=== PATIENT | male | born 1970 | race Caucasian/White ===

== ENCOUNTER 2016-08-26 10:44 | Emergency (ER) | payer MEDICARE, MEDICAID ==
[~2016-08-26] VITALS: Ht 157.5 cm; Wt 117.9 kg
[~2016-08-26 10:44] MED LIST: ALBUTEROL SULFAT4 M1 ORAL; AMBIEN10 MG ORAL; BENAZEPRIL HCL10 MG ORAL; CARBAMAZEPINE200 MG ORAL; DESYREL50 MG ORAL; FERROUS SULFAT325 MG ORAL; HALOPERIDOL2 MG PO; IRON325 M1 PO; KEFLEX500 MG ORAL; MELATONIN3 M2 PO; SERTRALINE HCL25 MG ORAL; SIMVASTATIN20 MG ORAL; TOPAMAX100 MG ORAL; TOPIRAMATE100 MG ORAL; Trazadone ORAL; ZOLOFT100 MG ORAL
[2016-08-26 10:56] VITALS: BP 94/55
[2016-08-26 11:43] LABS: APPEARANCE,URINE CLEAR; KETONES,URINE NEGATIVE (NEGATIVE); LEUKOCYTE ESTERASE ,URINE NEGATIVE (NEGATIVE); NITRITE,URINE NEGATIVE (NEGATIVE); PH,URINE 7 (4.5-8.0); PROTEIN,URINE NEGATIVE (NEGATIVE); UROBILINOGEN,URINE NORMAL MG/DL (0.0-1.0)
[2016-08-26 12:21] LABS: BASOPHILS % (AUTO) 0.6 % (0.0-2.0); EOSINOPHILS % (AUTO) 2.1 % (0.0-3.0); LYMPHOCYTES % (AUTO) 28.7 % (20.0-45.0); MEAN CORPUSCULAR HEMOGLOBIN 29.6 PG (27.0-31.0); MEAN CORPUSCULAR HGB CONC 32.5 G/DL (32.0-36.0); MEAN CORPUSCULAR VOLUME 91 FL (80-99); MEAN PLATELET VOLUME 5.8 FL (6.5-10.1); MONOCYTES % (AUTO) 5.9 % (1.0-10.0); NEUTROPHILS % (AUTO) 62.7 % (45.0-75.0); PLATELET COUNT 138 K/UL (150-450); RED BLOOD COUNT 4.29 M/UL (4.70-6.10); RED CELL DISTRIBUTION WIDTH 12.5 % (11.6-14.8); WHITE BLOOD COUNT 5.5 K/UL (4.8-10.8)
[2016-08-26 12:39] LABS: ALANINE AMINOTRANSFERASE 9 U/L (3-41); ALBUMIN/GLOBULIN RATIO 1.7 (1.0-2.7); ANION GAP 15 (5-15); ASPARTATE AMINO TRANSFERASE 12 U/L (5-40); CALCIUM 9.2 mg/dL (8.6-10.2); CARBON DIOXIDE 21 mEQ/L (20-30); CHLORIDE 101 mEQ/L (98-107); CREATININE 0.8 mg/dL (0.7-1.2); GLOMERULAR FILTRATION RATE > 60 mL/min (>60); HEMOLYSIS 7; POTASSIUM 3.7 mEQ/L (3.4-4.9); SODIUM 137 mEQ/L (135-145); TOTAL PROTEIN 6.9 g/dL (6.6-8.7)
[2016-08-26 12:46] VITALS: BP 98/56
[2016-08-26] MEDS ORDERED: CIPROFLOXACIN500 M2 ORAL (12:48)
[2016-08-26 13:00] VITALS: BP 98/56
--- NOTE | 2016-08-27 13:46 | Emergency Room Report ---
History of Present Illness General Chief Complaint: Diarrhea Source: Caregiver Present Illness HPI 46-year-old male presents ED for evaluation. 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 Patient has history of autism. Per career center advisor patient has had diarrhea on and off for the last one month. Patient is unable to provide any additional history at this time. No signs of distress. No foreign abdominal pain. No nausea or vomiting. No fevers or chills. No reported antibiotic. No recent travel. No aggravating or relieving factors. No other associated symptoms Allergies: Coded Allergies: No Known Allergies (Unverified , 12/17/12) Patient History Past Medical History: other - autism Past Surgical History: none Pertinent Family History: none Social History: Denies: alcohol use, drug use, smoking Immunizations: UTD Reviewed Nursing Documentation: PMH: Agreed, PSxH: Agreed Nursing Documentation-PMH Hx Cardiac Problems: Yes Hx Neurological Problems: Yes - Moderate mental retardation, Autistic disorder, Hx Seizures: Yes Review of Systems All Other Systems: limited Physical Exam Vital Signs Date Time Temp Pulse Resp B/P Pulse Ox O2 Delivery O2 Flow Rate FiO2 08/26/16 10:52 97.3 62 20 100 Room Air 08/26/16 10:56 94/55 Sp02 EP Interpretation: reviewed, normal General Appearance: no apparent distress, alert, GCS 15, non-toxic Head: normocephalic Eyes: bilateral eye PERRL, bilateral eye normal inspection ENT: normal ENT inspection Neck: normal inspection Respiratory: chest non-tender, lungs clear, normal breath sounds, speaking full sentences Cardiovascular #1: regular rate, rhythm, no edema Gastrointestinal: normal bowel sounds, non tender, soft, non-distended, no guarding, no rebound Rectal: deferred Genitourinary: no CVA tenderness Musculoskeletal: normal inspection Neurologic: alert, other - autism Psychiatric: other - autism Skin: normal inspection Lymphatic: normal inspection Medical Decision Making Diagnostic Impression: Primary Impression: Colitis Additional Impression: Developmental delay, severe ER Course Hospital Course 46-year-old M presents to ED with diarrhea x 1 month. h/o autism differential diagnosis: gastritis, SBO, cholecystits, gastroenteritis Clinical course Patient placed on stretcher. On conveyor monitor. After initial history and physical I ordered labs. Health Plan Specialist states that patient will not tolerate IV access. fluid jet cutter operator agreed to drawing labs Labs - no leukocytosis, electrolytes ok, LFTs normal, UA unremarkable Patient appears well, nontoxic, stable vitals but no signs of clinical dehydration. Given one month history of diarrhea we will treat with antibiotics I feel this is a highly complex case requiring extensive working including EKG/ Rhythm strip, Xray/CT/US, Blood/urine lab work, repeat exams while in ED, and administration of strong opiates/narcotics for pain control, admission to hospital or close patient follow up. Diagnosis - colitis Stable and discharged to home with prescriptions for Cipro. Followup with PMD. Return to ED if symptoms recur or worsen Labs Test 08/26/16 11:15 08/26/16 12:10 Urine Color Pale yellow Urine Appearance Clear Urine pH 7 (4.5-8.0) Urine Specific [place] 1.005 (1.005-1.035) Urine Protein Negative (NEGATIVE) Urine Glucose (UA) Negative (NEGATIVE) Urine Ketones Negative (NEGATIVE) Urine Occult Blood Negative (NEGATIVE) Urine Nitrite Negative (NEGATIVE) Urine Bilirubin Negative (NEGATIVE) Urine Urobilinogen Normal MG/DL (0.0-1.0) Urine Leukocyte Esterase Negative (NEGATIVE) White Blood Count 5.5 K/UL (4.8-10.8) Red Blood Count 4.29 M/UL (4.70-6.10) Hemoglobin 12.7 G/DL (14.2-18.0) Hematocrit 39.1 % (42.0-52.0) Mean Corpuscular Volume 91 FL (80-99) Mean Corpuscular Hemoglobin 29.6 PG (27.0-31.0) Mean Corpuscular Hemoglobin Concent 32.5 G/DL (32.0-36.0) Red Cell Distribution Width 12.5 % (11.6-14.8) Platelet Count 138 K/UL (150-450) Mean Platelet Volume 5.8 FL (6.5-10.1) Neutrophils (%) (Auto) 62.7 % (45.0-75.0) Lymphocytes (%) (Auto) 28.7 % (20.0-45.0) Monocytes (%) (Auto) 5.9 % (1.0-10.0) Eosinophils (%) (Auto) 2.1 % (0.0-3.0) Basophils (%) (Auto) 0.6 % (0.0-2.0) Sodium Level 137 mEQ/L (135-145) Potassium Level 3.7 mEQ/L (3.4-4.9) Chloride Level 101 mEQ/L (98-107) Carbon Dioxide Level 21 mEQ/L (20-30) Anion Gap 15 (5-15) Blood Urea Nitrogen 17 mg/dL (7-23) Creatinine 0.8 mg/dL (0.7-1.2) Estimat Glomerular Filtration Rate > 60 mL/min (>60) Glucose Level 90 mg/dL (74-106) Calcium Level 9.2 mg/dL (8.6-10.2) Total Bilirubin < 0.2 mg/dL (0.0-1.2) Aspartate Amino Transf (AST/SGOT) 12 U/L (5-40) Alanine Aminotransferase (ALT/SGPT) 9 U/L (3-41) Alkaline Phosphatase 162 U/L (40-129) Total Protein 6.9 g/dL (6.6-8.7) Albumin 4.4 g/dL (3.5-5.2) Globulin 2.5 g/dL Albumin/Globulin Ratio 1.7 (1.0-2.7) Last Vital Signs Date Time Temp Pulse Resp B/P Pulse Ox O2 Delivery O2 Flow Rate FiO2 08/26/16 13:00 97.3 79 18 98/56 100 Room Air Status: improved Disposition: HOME, SELF-CARE Condition: Stable Scripts Ciprofloxacin Hcl* (CIPROFLOXACIN HCL*) 500 Mg Tablet 500 MG ORAL Q12H, #14 TAB 0 Refills Prov: JOSE RAMON MERCEDES M.D. 08/26/16 Patient Instructions: Colitis JOSE RAMON MERCEDES M.D. Aug 27, 2016 13:46
== END 2016-08-26 13:02 | disposition home or self-care (01) ==
LOC: EMR 11:15
DX: K52.9 Noninfective gastroenteritis and colitis, unspecified (principal)
CPT/HCPCS: 36415; 80053; 81003; 85025; 99283

== ENCOUNTER 2016-11-15 15:06 | Inpatient (IN) | payer MEDICARE, MEDICAID ==
[~2016-11-15] VITALS: Ht 165.1 cm; Wt 105.2 kg
[~2016-11-15 15:06] MED LIST changes: +CIPROFLOXACIN500 M2 ORAL
[2016-11-15 16:21] LABS: BASOPHILS % (AUTO) 1.1 % (0.0-2.0); EOSINOPHILS % (AUTO) 2.2 % (0.0-3.0); LYMPHOCYTES % (AUTO) 24.9 % (20.0-45.0); MEAN CORPUSCULAR HEMOGLOBIN 31.6 PG (27.0-31.0); MEAN CORPUSCULAR HGB CONC 34.9 G/DL (32.0-36.0); MEAN CORPUSCULAR VOLUME 91 FL (80-99); MONOCYTES % (AUTO) 6.1 % (1.0-10.0); NEUTROPHILS % (AUTO) 65.6 % (45.0-75.0); PLATELET COUNT 144 K/UL (150-450); RED BLOOD COUNT 3.94 M/UL (4.70-6.10); RED CELL DISTRIBUTION WIDTH 13.1 % (11.6-14.8)
[2016-11-15 16:34] LABS: ALANINE AMINOTRANSFERASE 9 U/L (3-41); ALBUMIN/GLOBULIN RATIO 1.9 (1.0-2.7); ANION GAP 11 (5-15); ASPARTATE AMINO TRANSFERASE 11 U/L (5-40); CALCIUM 8.6 mg/dL (8.6-10.2); CARBON DIOXIDE 21 mEQ/L (20-30); CHLORIDE 106 mEQ/L (98-107); CREATININE 0.9 mg/dL (0.7-1.2); GLOMERULAR FILTRATION RATE > 60 mL/min (>60); HEMOLYSIS 4; POTASSIUM 3.7 mEQ/L (3.4-4.9); SODIUM 138 mEQ/L (135-145); TOTAL PROTEIN 6.7 g/dL (6.6-8.7)
--- NOTE | 2016-11-15 16:47 | Emergency Room Report ---
History of Present Illness General Chief Complaint: Gastrointestinal Bleed Source: Medical Record, Caregiver Present Illness HPI This patient has a history of mental retardation and autism. History is obtained from the caregiver who brought in the patient. Today the patient had a soft bowel movement that had bright red blood x3 episodes. There was no constipation. There is no hematuria. He has no history of bleeding. He has no history of travel. There was no nausea or vomiting. There are no other complaints. Allergies: Coded Allergies: No Known Allergies (Unverified , 12/17/12) Patient History Past Medical History: see triage record, seizures, other - Mental retardation, Autism Past Surgical History: other Social History: Denies: alcohol use, drug use, smoking Reviewed Nursing Documentation: PMH: Agreed, PSxH: Agreed Nursing Documentation-PMH Past Medical History: No History, Except For Hx Cardiac Problems: Yes Hx Neurological Problems: Yes - Moderate mental retardation, Autistic disorder, Hx Seizures: Yes Review of Systems All Other Systems: negative except mentioned in HPI Physical Exam Vital Signs Date Time Temp Pulse Resp B/P Pulse Ox O2 Delivery O2 Flow Rate FiO2 11/15/16 15:19 97.7 85 14 112/75 99 Room Air Sp02 EP Interpretation: reviewed, normal General Appearance: no apparent distress, alert, GCS 15, non-toxic Head: normocephalic, atraumatic Eyes: bilateral eye PERRL, bilateral eye normal inspection ENT: hearing grossly normal, normal pharynx, no angioedema, normal voice Neck: full range of motion, supple/symm/no masses Respiratory: chest non-tender, lungs clear, normal breath sounds, speaking full sentences Cardiovascular #1: regular rate, rhythm, no edema Gastrointestinal: normal bowel sounds, non tender, soft, non-distended, no guarding, no rebound Rectal: normal exam, normal rectal tone, other - Brown stool. No obvious bleeding or hemorrhoids. Musculoskeletal: back normal, normal range of motion, non-tender Neurologic: alert, responsive, motor strength/tone normal, other - At baseline. Speech non-sensical. Follows basic commands. Psychiatric: mood/affect normal Skin: normal color, no rash, warm/dry, well hydrated Medical Decision Making Diagnostic Impression: Primary Impression: Gastrointestinal hemorrhage Additional Impression: Developmental delay, severe Labs Test 11/15/16 15:00 White Blood Count 6.0 K/UL (4.8-10.8) Red Blood Count 3.94 M/UL (4.70-6.10) Hemoglobin 12.5 G/DL (14.2-18.0) Hematocrit 35.7 % (42.0-52.0) Mean Corpuscular Volume 91 FL (80-99) Mean Corpuscular Hemoglobin 31.6 PG (27.0-31.0) Mean Corpuscular Hemoglobin Concent 34.9 G/DL (32.0-36.0) Red Cell Distribution Width 13.1 % (11.6-14.8) Platelet Count 144 K/UL (150-450) Mean Platelet Volume 5.0 FL (6.5-10.1) Neutrophils (%) (Auto) 65.6 % (45.0-75.0) Lymphocytes (%) (Auto) 24.9 % (20.0-45.0) Monocytes (%) (Auto) 6.1 % (1.0-10.0) Eosinophils (%) (Auto) 2.2 % (0.0-3.0) Basophils (%) (Auto) 1.1 % (0.0-2.0) Prothrombin Time 10.0 SEC (9.30-11.50) Prothromb Time International Ratio 1.0 (0.9-1.1) Activated Partial Thromboplast Time 27 SEC (23-33) Sodium Level 138 mEQ/L (135-145) Potassium Level 3.7 mEQ/L (3.4-4.9) Chloride Level 106 mEQ/L (98-107) Carbon Dioxide Level 21 mEQ/L (20-30) Anion Gap 11 (5-15) Blood Urea Nitrogen 14 mg/dL (7-23) Creatinine 0.9 mg/dL (0.7-1.2) Estimat Glomerular Filtration Rate > 60 mL/min (>60) Glucose Level 93 mg/dL (74-106) Calcium Level 8.6 mg/dL (8.6-10.2) Total Bilirubin < 0.2 mg/dL (0.0-1.2) Aspartate Amino Transf (AST/SGOT) 11 U/L (5-40) Alanine Aminotransferase (ALT/SGPT) 9 U/L (3-41) Alkaline Phosphatase 156 U/L (40-129) Total Protein 6.7 g/dL (6.6-8.7) Albumin 4.4 g/dL (3.5-5.2) Globulin 2.3 g/dL Albumin/Globulin Ratio 1.9 (1.0-2.7) EKG Diagnostic Results Rate: normal Rhythm: NSR Other Impression NSST findings. prolonged Qt. IRBBB. No comparison available. Rhythm Strip Diag. Results EP Interpretation: yes Rate: 70's Rhythm: NSR, no PVC's, no ectopy Last Vital Signs Date Time Temp Pulse Resp B/P Pulse Ox O2 Delivery O2 Flow Rate FiO2 11/15/16 15:19 97.7 85 14 112/75 99 Room Air Disposition: ADMITTED INPATIENT Condition: Stable Referrals: NON PHYSICIAN (PCP) DEVIN WHIPPLE D.O. Nov 15, 2016 16:47
[2016-11-15 17:03] LABS: APPEARANCE,URINE CLEAR; KETONES,URINE NEGATIVE (NEGATIVE); LEUKOCYTE ESTERASE ,URINE NEGATIVE (NEGATIVE); NITRITE,URINE NEGATIVE (NEGATIVE); PH,URINE 6 (4.5-8.0); PROTEIN,URINE NEGATIVE (NEGATIVE); UROBILINOGEN,URINE NORMAL MG/DL (0.0-1.0)
[2016-11-15] MEDS ORDERED: HALOPERIDOL0.5 MG ORAL (17:26)
[2016-11-15] MEDS ORDERED: KLONOPIN1 MG ORAL (17:26)
[2016-11-15] MEDS ORDERED: OMEPRAZOLE40 M1 ORAL (17:26)
[2016-11-15] MEDS ORDERED: TRAZODONE HCL150 MG ORAL (17:26)
[2016-11-15 18:00] VITALS: BP 119/74
[2016-11-15] MEDS ORDERED: Mylanta II UD 30ml ORAL PRN (18:15)
[2016-11-15] MEDS ORDERED: Morphine Sulfate 2mg/ml Inj IVP PRN (18:15)
[2016-11-15] MEDS ORDERED: Nitroglycerin Subl 0.4mg tab (Bottle Of 25) SL PRN (18:15)
[2016-11-15] MEDS ORDERED: Phytonadione 10 MG in D5W 55 ML IVPB ONE (19:00)
[2016-11-15 20:00] VITALS: BP 100/65
[2016-11-15] MEDS ORDERED: Miralax 17gm pkt ORAL PRN (21:00)
[2016-11-15] MEDS ORDERED: TraZODone 50mg tab ORAL SCH (21:00)
[2016-11-15 23:20] VITALS: BP 97/64
[2016-11-15] MEDS: D5NS 1,000 ML IV SCH (23:35)
[2016-11-16] MEDS: TraZODone 50mg tab ORAL SCH ×2 (01:16→21:21)
[2016-11-16] MEDS: carBAMazepine 200mg tab ORAL SCH ×5 (01:17→21:23)
[2016-11-16] MEDS ORDERED: MELATONIN3 MG ORAL (02:28)
[2016-11-16] MEDS ORDERED: BENAZEPRIL HCL5 MG ORAL (02:28)
[2016-11-16] MEDS ORDERED: KLONOPIN2 MG PO (02:28)
[2016-11-16] MEDS ORDERED: TOPIRAMATE200 MG PO (02:28)
[2016-11-16 04:00] VITALS: BP 97/62
[2016-11-16] MEDS: D5NS 1,000 ML IV SCH ×2 (06:00→11:56)
[2016-11-16 06:28] LABS: BASOPHILS % (AUTO) 0.7 % (0.0-2.0); EOSINOPHILS % (AUTO) 2.8 % (0.0-3.0); LYMPHOCYTES % (AUTO) 39.8 % (20.0-45.0); MEAN CORPUSCULAR HEMOGLOBIN 30.1 PG (27.0-31.0); MEAN CORPUSCULAR HGB CONC 32.4 G/DL (32.0-36.0); MEAN CORPUSCULAR VOLUME 93 FL (80-99); MEAN PLATELET VOLUME 5.8 FL (6.5-10.1); MONOCYTES % (AUTO) 8.2 % (1.0-10.0); NEUTROPHILS % (AUTO) 48.5 % (45.0-75.0); PLATELET COUNT 152 K/UL (150-450); RED BLOOD COUNT 4.06 M/UL (4.70-6.10); RED CELL DISTRIBUTION WIDTH 12.8 % (11.6-14.8); WHITE BLOOD COUNT 4.2 K/UL (4.8-10.8)
[2016-11-16 06:39] LABS: PROTHROMBIN TIME 10.1 SEC (9.30-11.50)
[2016-11-16] MEDS ORDERED: Haloperidol 5mg/ml Inj IM PRN (07:30)
[2016-11-16 07:33] LABS: ALANINE AMINOTRANSFERASE 7 U/L (3-41); ALBUMIN/GLOBULIN RATIO 1.5 (1.0-2.7); AMYLASE 27 U/L (10-110); ANION GAP 15 (5-15); ASPARTATE AMINO TRANSFERASE 11 U/L (5-40); CALCIUM 8.7 mg/dL (8.6-10.2); CARBON DIOXIDE 19 mEQ/L (20-30); CHLORIDE 107 mEQ/L (98-107); CREATININE 0.7 mg/dL (0.7-1.2); GLOMERULAR FILTRATION RATE > 60 mL/min (>60); HEMOLYSIS 4; LIPASE 13 U/L (< 60); POTASSIUM 3.9 mEQ/L (3.4-4.9); SODIUM 141 mEQ/L (135-145); TOTAL PROTEIN 6.3 g/dL (6.6-8.7)
[2016-11-16 08:00] VITALS: BP 102/70
[2016-11-16] MEDS ORDERED: Sertraline 50mg tab ORAL SCH (09:00)
[2016-11-16] MEDS ORDERED: Benazepril 10mg tab ORAL SCH ×2 (09:00)
[2016-11-16] MEDS ORDERED: Topiramate 100mg tab ORAL SCH ×2 (09:00→20:00)
[2016-11-16] MEDS ORDERED: Sertraline 100mg tab ORAL SCH (09:00)
--- NOTE | 2016-11-16 09:29 | History and Physical ---
History of Present Illness General Date patient seen: Nov 16, 2016 Reason for Hospitalization: Gastrointestinal Bleed Present Illness HPI 46 year old male with history of mental retardation and autism. History is obtained from the caregiver who brought in the patient. the patient had a soft bowel movement that had bright red blood x3 episodes. There was no constipation. There is no hematuria. He has no history of bleeding. He has no history of travel. There was no nausea or vomiting. There are no other complaints. He is admitted for lower GI bleeding Allergies: Coded Allergies: No Known Allergies (Unverified , 12/17/12) Medication History Scheduled Albuterol Sulfate* (Albuterol Repetabs*), 4 MG ORAL TWICE A DAY, (Reported) Benazepril Hcl (Benazepril Hcl), 5 MG ORAL DAILY, (Reported) Carbamazepine* (Carbamazepine*), 300 MG ORAL FOUR TIMES A DAY Clonazepam (Klonopin), 2 MG PO QHS, (Reported) Ferrous Sulfate (Iron), 325 MG PO DAILY, (Reported) Haloperidol* (Haldol*), 0.5 MG ORAL TID, (Reported) Melatonin (Melatonin), 3 MG ORAL QHS, (Reported) Omeprazole (Omeprazole), 40 MG ORAL DAILY, (Reported) Sertraline Hcl* (Zoloft*), 100 MG ORAL DAILY, (Reported) Simvastatin (Zocor), 20 MG ORAL BEDTIME, (Reported) Topiramate (Topiramate), 200 MG PO TID, (Reported) Trazodone* (Trazodone*), 150 MG ORAL BEDTIME, (Reported) Zolpidem Tartrate* (Ambien*), 10 MG ORAL BEDTIME, (Reported) Discontinued Medications Benazepril Hcl* (Benazepril Hcl*), 5 MG ORAL DAILY, (Reported) Discontinued Reason: Medication dose changed Cephalexin* (Keflex*), 500 MG ORAL EVERY 6 HOURS Discontinued Reason: Pt stopped taking med Ciprofloxacin Hcl* (Ciprofloxacin Hcl*), 500 MG ORAL Q12H Discontinued Reason: Pt stopped taking med Clonazepam* (Klonopin*), 2 MG ORAL QHS, (Reported) Discontinued Reason: Medication dose changed Ferrous Sulfate* (Ferrous Sulfate*), 325 MG ORAL DAILY, (Reported) Discontinued Reason: Medication dose changed Haloperidol (Haloperidol), 0.5 MG PO TID, (Reported) Discontinued Reason: Medication dose changed Melatonin (Melatonin), 3 TAB PO BEDTIME, (Reported) Discontinued Reason: Medication dose changed Sertraline Hcl* (Sertraline Hcl*), 100 MG ORAL DAILY, (Reported) Discontinued Reason: Medication dose changed Topiramate (Topamax), 300 MG ORAL TWICE A DAY Discontinued Reason: Medication dose changed Topiramate* (Topamax*), 400 MG ORAL DAILY, (Reported) Discontinued Reason: Medication dose changed Trazodone Hcl (Desyrel), 50 MG ORAL BEDTIME Discontinued Reason: Medication dose changed Patient History Healthcare decision maker Resuscitation status Full Code Advanced Directive on File Review of Systems All Other Systems: negative except mentioned in HPI Physical Exam General Appearance: WD/WN Lines, tubes and drains: peripheral HEENT: normocephalic, anicteric Neck: non-tender, normal alignment Respiratory/Chest: chest wall non-tender, lungs clear, normal breath sounds Breasts: no masses Cardiovascular/Chest: normal peripheral pulses, normal rate Abdomen: normal bowel sounds, non tender Genitourinary/Rectal: normal genital exam Extremities: normal range of motion, non-tender Last 24 Hour Vital Signs Date Time Temp Pulse Resp B/P Pulse Ox O2 Delivery O2 Flow Rate FiO2 11/16/16 08:54 102/70 11/16/16 04:00 62 11/16/16 04:00 97.7 61 18 97/62 98 Room Air 11/16/16 00:00 64 11/15/16 23:20 97.3 60 18 97/64 98 Room Air 11/15/16 22:37 62 18 113/67 96 Room Air 11/15/16 20:00 64 18 100/65 98 11/15/16 18:00 68 16 119/74 98 Room Air 11/15/16 15:19 97.7 85 14 112/75 99 Room Air Intake and Output 11/15/16 11/16/16 19:00 07:00 Intake Total 0 ml 700 ml Balance 0 ml 700 ml Intake Oral 0 ml IV Total 700 ml # Voids 2 Laboratory Tests Test 11/15/16 15:00 11/15/16 16:35 11/16/16 04:35 11/16/16 04:55 White Blood Count 6.0 K/UL (4.8-10.8) 4.2 K/UL (4.8-10.8) L Red Blood Count 3.94 M/UL (4.70-6.10) L 4.06 M/UL (4.70-6.10) L Hemoglobin 12.5 G/DL (14.2-18.0) L 12.2 G/DL (14.2-18.0) L Hematocrit 35.7 % (42.0-52.0) L 37.6 % (42.0-52.0) L Mean Corpuscular Volume 91 FL (80-99) 93 FL (80-99) Mean Corpuscular Hemoglobin 31.6 PG (27.0-31.0) H 30.1 PG (27.0-31.0) Mean Corpuscular Hemoglobin Concent 34.9 G/DL (32.0-36.0) 32.4 G/DL (32.0-36.0) Red Cell Distribution Width 13.1 % (11.6-14.8) 12.8 % (11.6-14.8) Platelet Count 144 K/UL (150-450) L 152 K/UL (150-450) Mean Platelet Volume 5.0 FL (6.5-10.1) L 5.8 FL (6.5-10.1) L Neutrophils (%) (Auto) 65.6 % (45.0-75.0) 48.5 % (45.0-75.0) Lymphocytes (%) (Auto) 24.9 % (20.0-45.0) 39.8 % (20.0-45.0) Monocytes (%) (Auto) 6.1 % (1.0-10.0) 8.2 % (1.0-10.0) Eosinophils (%) (Auto) 2.2 % (0.0-3.0) 2.8 % (0.0-3.0) Basophils (%) (Auto) 1.1 % (0.0-2.0) 0.7 % (0.0-2.0) Prothrombin Time 10.0 SEC (9.30-11.50) 10.1 SEC (9.30-11.50) Prothromb Time International Ratio 1.0 (0.9-1.1) 1.0 (0.9-1.1) Activated Partial Thromboplast Time 27 SEC (23-33) 27 SEC (23-33) Sodium Level 138 mEQ/L (135-145) 141 mEQ/L (135-145) Potassium Level 3.7 mEQ/L (3.4-4.9) 3.9 mEQ/L (3.4-4.9) Chloride Level 106 mEQ/L (98-107) 107 mEQ/L (98-107) Carbon Dioxide Level 21 mEQ/L (20-30) 19 mEQ/L (20-30) L Anion Gap 11 (5-15) 15 (5-15) Blood Urea Nitrogen 14 mg/dL (7-23) 13 mg/dL (7-23) Creatinine 0.9 mg/dL (0.7-1.2) 0.7 mg/dL (0.7-1.2) Estimat Glomerular Filtration Rate > 60 mL/min (>60) > 60 mL/min (>60) Glucose Level 93 mg/dL (74-106) 85 mg/dL (74-106) Calcium Level 8.6 mg/dL (8.6-10.2) 8.7 mg/dL (8.6-10.2) Total Bilirubin < 0.2 mg/dL (0.0-1.2) 0.2 mg/dL (0.0-1.2) Aspartate Amino Transf (AST/SGOT) 11 U/L (5-40) 11 U/L (5-40) Alanine Aminotransferase (ALT/SGPT) 9 U/L (3-41) 7 U/L (3-41) Alkaline Phosphatase 156 U/L (40-129) H 150 U/L (40-129) H Total Protein 6.7 g/dL (6.6-8.7) 6.3 g/dL (6.6-8.7) L Albumin 4.4 g/dL (3.5-5.2) 3.8 g/dL (3.5-5.2) Globulin 2.3 g/dL 2.5 g/dL Albumin/Globulin Ratio 1.9 (1.0-2.7) 1.5 (1.0-2.7) Urine Color Pale yellow Urine Appearance Clear Urine pH 6 (4.5-8.0) Urine Specific [place] 1.020 (1.005-1.035) Urine Protein Negative (NEGATIVE) Urine Glucose (UA) Negative (NEGATIVE) Urine Ketones Negative (NEGATIVE) Urine Occult Blood Negative (NEGATIVE) Urine Nitrite Negative (NEGATIVE) Urine Bilirubin Negative (NEGATIVE) Urine Urobilinogen Normal MG/DL (0.0-1.0) Urine Leukocyte Esterase Negative (NEGATIVE) Amylase Level 27 U/L (10-110) Lipase 13 U/L (< 60) Height (Feet): 5 Height (Inches): 4.00 Weight (Pounds): 232 Medications Current Medications Medications (Trade) Dose Ordered Sig/Oracio Route PRN Reason Start Time Stop Time Status Last Admin Dose Admin Acetaminophen (Tylenol) 650 mg Q4H PRN ORAL T>100.5 11/15/16 18:15 12/15/16 18:14 Al Hydroxide/Mg Hydroxide (Mylanta II) 30 ml Q6H PRN ORAL dyspepsia 11/15/16 18:15 12/15/16 18:14 Benazepril HCl (Lotensin) 5 mg DAILY ORAL 11/16/16 09:00 12/16/16 08:59 Carbamazepine (TEGretol) 300 mg FOUR TIMES A DAY ORAL 11/15/16 21:00 12/15/16 20:59 11/16/16 08:51 Clonazepam (KlonoPIN) 2 mg QHS ORAL 11/15/16 21:00 11/22/16 20:59 11/16/16 01:18 Dextrose STAT PRN IV Hypoglycemia 11/15/16 18:15 12/15/16 18:14 Dextrose/Sodium Chloride (D5ns) 1,000 ml @ 100 mls/hr Q10H IV 11/15/16 20:00 12/15/16 19:59 11/15/16 23:35 Diphenhydramine HCl (Benadryl) 25 mg Q6H PRN ORAL Itching/Pruritis 11/15/16 18:15 12/15/16 18:14 Haloperidol Lactate (Haldol) 5 mg Q6H PRN IM Agitation 11/16/16 07:30 12/16/16 07:29 Morphine Sulfate (Morphine Sulfate) 2 mg Q4H PRN IVP Severe Pain (Pain Scale 7-10) 11/15/16 18:15 11/22/16 18:14 Nitroglycerin (Ntg) 0.4 mg Q5M X 3 DOSES PRN SL Prn Chest Pain 11/15/16 18:15 12/15/16 18:14 Ondansetron HCl (Zofran) 4 mg Q6H PRN IVP Nausea & Vomiting 11/15/16 18:15 12/15/16 18:14 Polyethylene Glycol (Miralax) 17 gm HSPRN PRN ORAL Constipation 11/15/16 21:00 12/15/16 20:59 Sertraline HCl (Zoloft) 100 mg DAILY ORAL 11/16/16 09:00 12/16/16 08:59 11/16/16 08:53 Trazodone HCl (Desyrel) 150 mg BEDTIME ORAL 11/16/16 01:15 12/16/16 01:14 11/16/16 01:16 Zolpidem Tartrate (Ambien) 5 mg BEDTIME ORAL 11/16/16 21:00 12/16/16 20:59 Assessment/Plan Problem List: (1) Lower GI bleed ICD Codes: K92.2 - Gastrointestinal hemorrhage, unspecified SNOMED: 96408720 (2) Developmental delay, severe ICD Codes: R62.50 - Unspecified lack of expected normal physiological development in childhood SNOMED: 371396067 (3) Agitation ICD Codes: R45.1 - Restlessness and agitation SNOMED: 59657729 (4) Seizure disorder ICD Codes: G40.909 - Epilepsy, unspecified, not intractable, without status epilepticus SNOMED: 220908434 Assessment/Plan npo IV fluids GI evaluation psych evaluation h/h stable, might go to med/surg. CHANDRAKANT RIGGS Nov 16, 2016 09:29
--- NOTE | 2016-11-16 09:57 | GI Initial Consult Note ---
Heide Cabrales N.PBebe 11/16/16 0957: History of Present Illness General Date patient seen: Nov 16, 2016 Time patient seen: 09:55 Reason for Hospitalization: Gastrointestinal Bleed Referring physician: CHANDRAKANT TERAN Reason for Consultation: LGIB Present Illness HPI This patient has a history of mental retardation and autism. History is obtained from the caregiver who brought in the patient. Today the patient had a soft bowel movement that had bright red blood x3 episodes. There was no constipation. There is no hematuria. He has no history of bleeding. He has no history of travel. There was no nausea or vomiting. There are no other complaints. GI Consult. HPI as noted above. GI consulted for reports of bloody stools. ROS limited, patient with MR. Esparza seen on floor, awake alert with caregiver by bedside. No active s/sx N/V/D. Patient currently on CLD. He presents today with BRBPR, anemia, and elevated alkaline phosphatase. No history of endoscopics procedures. Home Meds Active Scripts Carbamazepine* (CARBAMAZEPINE*) 200 Mg Tablet, 300 MG ORAL FOUR TIMES A DAY, # 120 TAB Prov:Willy (Sheron)Keena AUDIT CONSULTANT 04/16/15 Reported Medications Topiramate (TOPIRAMATE) 200 Mg Tablet, 200 MG PO TID, TAB 11/16/16 Melatonin (MELATONIN) 3 Mg Tablet, 3 MG ORAL QHS, TAB 11/16/16 Clonazepam (KLONOPIN) 2 Mg Tablet, 2 MG PO QHS, TAB 11/16/16 Benazepril Hcl (BENAZEPRIL HCL) 5 Mg Tablet, 5 MG ORAL DAILY, TAB 11/16/16 Haloperidol* (HALDOL*) 0.5 Mg Tablet, 0.5 MG ORAL TID, #20 TAB 0 Refills 11/15/16 Trazodone* (TRAZODONE*) 150 Mg Tablet, 150 MG ORAL BEDTIME, TAB 11/15/16 Omeprazole (OMEPRAZOLE) 40 Mg Capsule.dr, 40 MG ORAL DAILY, CAP 11/15/16 Ferrous Sulfate (IRON) 325 Mg Tablet, 325 MG PO DAILY, TAB 04/14/15 Sertraline Hcl* (ZOLOFT*) 100 Mg Tablet, 100 MG ORAL DAILY, TAB 04/14/15 Albuterol Sulfate* (ALBUTEROL REPETABS*) 4 Mg Tab.er.12h, 4 MG ORAL TWICE A DAY , TAB 12/17/12 Simvastatin (ZOCOR) 20 Mg Tablet, 20 MG ORAL BEDTIME, TAB 12/17/12 Zolpidem Tartrate* (AMBIEN*) 10 Mg Tablet, 10 MG ORAL BEDTIME 12/17/12 Discontinued Reported Medications Clonazepam* (KLONOPIN*) 1 Mg Tablet, 2 MG ORAL QHS, #15 TAB 0 Refills 11/15/16 Melatonin (Melatonin) 3 Mg Tab.rapdis, 3 TAB PO BEDTIME, TAB 04/14/15 Sertraline Hcl* (SERTRALINE HCL*) 25 Mg Tablet, 100 MG ORAL DAILY, TAB 04/14/15 Ferrous Sulfate* (FERROUS SULFATE*) 325 Mg Tablet, 325 MG ORAL DAILY, #30 TAB 12/17/12 Benazepril Hcl* (BENAZEPRIL HCL*) 10 Mg Tablet, 5 MG ORAL DAILY, TAB 12/17/12 Topiramate* (TOPAMAX*) 100 Mg Tablet, 400 MG ORAL DAILY, #60 TAB 12/17/12 Haloperidol (HALOPERIDOL) 2 Mg Tablet, 0.5 MG PO TID 12/17/12 Discontinued Scripts Ciprofloxacin Hcl* (CIPROFLOXACIN HCL*) 500 Mg Tablet, 500 MG ORAL Q12H, #14 TAB 0 Refills Prov:JOSE RAMON MERCEDES M.D. 08/26/16 Trazodone Hcl (DESYREL) 50 Mg Tablet, 50 MG ORAL BEDTIME, #30 TAB Prov:Keena Aguilera NP (Vanchtein) 04/16/15 Topiramate (TOPAMAX) 100 Mg Tablet, 300 MG ORAL TWICE A DAY, #60 TAB Prov:Willy (VanchtKeena gauthier AUDIT CONSULTANT 04/16/15 Cephalexin* (KEFLEX*) 500 Mg Capsule, 500 MG ORAL EVERY 6 HOURS, #28 CAP Prov:ERIN PASTRANA D.O. 12/17/12 Med list reviewed/reconciled: Yes Allergies: Coded Allergies: No Known Allergies (Unverified , 12/17/12) Patient History Limited by: medical condition History Provided By: Medical Record PMH Narrative Past Medical History: see triage record, seizures, other - Mental retardation, Autism Past Surgical History: other Social History: Denies: alcohol use, drug use, smoking Reviewed Nursing Documentation: PMH: Agreed, PSxH: Agreed Nursing Documentation-PMH Past Medical History: No History, Except For Hx Cardiac Problems: Yes Hx Neurological Problems: Yes - Moderate mental retardation, Autistic disorder, Hx Seizures: Yes Review of Systems All Other Systems: limited Physical Exam Vital Signs Date Time Temp Pulse Resp B/P Pulse Ox O2 Delivery O2 Flow Rate FiO2 11/15/16 15:19 97.7 85 14 112/75 99 Room Air Sp02 EP Interpretation: reviewed Labs Laboratory Tests Test 11/15/16 15:00 11/15/16 16:35 11/16/16 04:35 11/16/16 04:55 White Blood Count 6.0 K/UL (4.8-10.8) 4.2 K/UL (4.8-10.8) L Red Blood Count 3.94 M/UL (4.70-6.10) L 4.06 M/UL (4.70-6.10) L Hemoglobin 12.5 G/DL (14.2-18.0) L 12.2 G/DL (14.2-18.0) L Hematocrit 35.7 % (42.0-52.0) L 37.6 % (42.0-52.0) L Mean Corpuscular Volume 91 FL (80-99) 93 FL (80-99) Mean Corpuscular Hemoglobin 31.6 PG (27.0-31.0) H 30.1 PG (27.0-31.0) Mean Corpuscular Hemoglobin Concent 34.9 G/DL (32.0-36.0) 32.4 G/DL (32.0-36.0) Red Cell Distribution Width 13.1 % (11.6-14.8) 12.8 % (11.6-14.8) Platelet Count 144 K/UL (150-450) L 152 K/UL (150-450) Mean Platelet Volume 5.0 FL (6.5-10.1) L 5.8 FL (6.5-10.1) L Neutrophils (%) (Auto) 65.6 % (45.0-75.0) 48.5 % (45.0-75.0) Lymphocytes (%) (Auto) 24.9 % (20.0-45.0) 39.8 % (20.0-45.0) Monocytes (%) (Auto) 6.1 % (1.0-10.0) 8.2 % (1.0-10.0) Eosinophils (%) (Auto) 2.2 % (0.0-3.0) 2.8 % (0.0-3.0) Basophils (%) (Auto) 1.1 % (0.0-2.0) 0.7 % (0.0-2.0) Prothrombin Time 10.0 SEC (9.30-11.50) 10.1 SEC (9.30-11.50) Prothromb Time International Ratio 1.0 (0.9-1.1) 1.0 (0.9-1.1) Activated Partial Thromboplast Time 27 SEC (23-33) 27 SEC (23-33) Sodium Level 138 mEQ/L (135-145) 141 mEQ/L (135-145) Potassium Level 3.7 mEQ/L (3.4-4.9) 3.9 mEQ/L (3.4-4.9) Chloride Level 106 mEQ/L (98-107) 107 mEQ/L (98-107) Carbon Dioxide Level 21 mEQ/L (20-30) 19 mEQ/L (20-30) L Anion Gap 11 (5-15) 15 (5-15) Blood Urea Nitrogen 14 mg/dL (7-23) 13 mg/dL (7-23) Creatinine 0.9 mg/dL (0.7-1.2) 0.7 mg/dL (0.7-1.2) Estimat Glomerular Filtration Rate > 60 mL/min (>60) > 60 mL/min (>60) Glucose Level 93 mg/dL (74-106) 85 mg/dL (74-106) Calcium Level 8.6 mg/dL (8.6-10.2) 8.7 mg/dL (8.6-10.2) Total Bilirubin < 0.2 mg/dL (0.0-1.2) 0.2 mg/dL (0.0-1.2) Aspartate Amino Transf (AST/SGOT) 11 U/L (5-40) 11 U/L (5-40) Alanine Aminotransferase (ALT/SGPT) 9 U/L (3-41) 7 U/L (3-41) Alkaline Phosphatase 156 U/L (40-129) H 150 U/L (40-129) H Total Protein 6.7 g/dL (6.6-8.7) 6.3 g/dL (6.6-8.7) L Albumin 4.4 g/dL (3.5-5.2) 3.8 g/dL (3.5-5.2) Globulin 2.3 g/dL 2.5 g/dL Albumin/Globulin Ratio 1.9 (1.0-2.7) 1.5 (1.0-2.7) Urine Color Pale yellow Urine Appearance Clear Urine pH 6 (4.5-8.0) Urine Specific [place] 1.020 (1.005-1.035) Urine Protein Negative (NEGATIVE) Urine Glucose (UA) Negative (NEGATIVE) Urine Ketones Negative (NEGATIVE) Urine Occult Blood Negative (NEGATIVE) Urine Nitrite Negative (NEGATIVE) Urine Bilirubin Negative (NEGATIVE) Urine Urobilinogen Normal MG/DL (0.0-1.0) Urine Leukocyte Esterase Negative (NEGATIVE) Amylase Level 27 U/L (10-110) Lipase 13 U/L (< 60) General Appearance: no apparent distress EENT: normal ENT inspection Neck: supple Respiratory: no respiratory distress Cardiovascular: normal rate Gastrointestinal: normal inspection, non tender, soft Rectal: deferred Genitourinary: no CVA tenderness Musculoskeletal: back normal Neurologic: normal inspection, alert, oriented x3, responsive Psychiatric: normal inspection, judgement/insight normal Skin: normal inspection, normal color, no rash, warm/dry Lymphatic: normal inspection, no adenopathy Current Medications Current Medications Medications (Trade) Dose Ordered Sig/Oracio Route PRN Reason Start Time Stop Time Status Last Admin Dose Admin Acetaminophen (Tylenol) 650 mg Q4H PRN ORAL T>100.5 11/15/16 18:15 12/15/16 18:14 Al Hydroxide/Mg Hydroxide (Mylanta II) 30 ml Q6H PRN ORAL dyspepsia 11/15/16 18:15 12/15/16 18:14 Benazepril HCl (Lotensin) 5 mg DAILY ORAL 11/16/16 09:00 12/16/16 08:59 Carbamazepine (TEGretol) 300 mg FOUR TIMES A DAY ORAL 11/15/16 21:00 12/15/16 20:59 11/16/16 08:51 Clonazepam (KlonoPIN) 2 mg QHS ORAL 11/15/16 21:00 11/22/16 20:59 11/16/16 01:18 Dextrose STAT PRN IV Hypoglycemia 11/15/16 18:15 12/15/16 18:14 Dextrose/Sodium Chloride (D5ns) 1,000 ml @ 100 mls/hr Q10H IV 11/15/16 20:00 12/15/16 19:59 11/15/16 23:35 Diphenhydramine HCl (Benadryl) 25 mg Q6H PRN ORAL Itching/Pruritis 11/15/16 18:15 12/15/16 18:14 Haloperidol Lactate (Haldol) 5 mg Q6H PRN IM Agitation 11/16/16 07:30 12/16/16 07:29 Morphine Sulfate (Morphine Sulfate) 2 mg Q4H PRN IVP Severe Pain (Pain Scale 7-10) 11/15/16 18:15 11/22/16 18:14 Nitroglycerin (Ntg) 0.4 mg Q5M X 3 DOSES PRN SL Prn Chest Pain 11/15/16 18:15 12/15/16 18:14 Ondansetron HCl (Zofran) 4 mg Q6H PRN IVP Nausea & Vomiting 11/15/16 18:15 12/15/16 18:14 Polyethylene Glycol (Miralax) 17 gm HSPRN PRN ORAL Constipation 11/15/16 21:00 12/15/16 20:59 Sertraline HCl (Zoloft) 100 mg DAILY ORAL 11/16/16 09:00 12/16/16 08:59 11/16/16 08:53 Trazodone HCl (Desyrel) 150 mg BEDTIME ORAL 11/16/16 01:15 12/16/16 01:14 11/16/16 01:16 Zolpidem Tartrate (Ambien) 5 mg BEDTIME ORAL 11/16/16 21:00 12/16/16 20:59 GI: Plan Problems: (1) Lower GI bleed (2) Colitis (3) Developmental delay, severe Plan EGD/colonoscopy scheduled for tomorrow. - CLD, NPO @ [facility]. - hold all blood thinners monitor H&H, transfuse prn lipase unremarkable ppi fu labs Discussed with Dr. Thompson. Thank you for referring this patient, we will follow. FABIAN THOMPSON 11/19/16 0912: History of Present Illness General Reason for Hospitalization: Gastrointestinal Bleed Present Illness Home Meds Active Scripts Carbamazepine* (CARBAMAZEPINE*) 200 Mg Tablet, 300 MG ORAL FOUR TIMES A DAY, # 120 TAB Prov:Aguilera (Vanchtein),Keena AUDIT CONSULTANT 04/16/15 Reported Medications Topiramate (TOPIRAMATE) 200 Mg Tablet, 200 MG PO TID, TAB 11/16/16 Melatonin (MELATONIN) 3 Mg Tablet, 3 MG ORAL QHS, TAB 11/16/16 Clonazepam (KLONOPIN) 2 Mg Tablet, 2 MG PO QHS, TAB 11/16/16 Benazepril Hcl (BENAZEPRIL HCL) 5 Mg Tablet, 5 MG ORAL DAILY, TAB 11/16/16 Haloperidol* (HALDOL*) 0.5 Mg Tablet, 0.5 MG ORAL TID, #20 TAB 0 Refills 11/15/16 Trazodone* (TRAZODONE*) 150 Mg Tablet, 150 MG ORAL BEDTIME, TAB 11/15/16 Omeprazole (OMEPRAZOLE) 40 Mg Capsule.dr, 40 MG ORAL DAILY, CAP 11/15/16 Ferrous Sulfate (IRON) 325 Mg Tablet, 325 MG PO DAILY, TAB 04/14/15 Sertraline Hcl* (ZOLOFT*) 100 Mg Tablet, 100 MG ORAL DAILY, TAB 04/14/15 Albuterol Sulfate* (ALBUTEROL REPETABS*) 4 Mg Tab.er.12h, 4 MG ORAL TWICE A DAY , TAB 12/17/12 Simvastatin (ZOCOR) 20 Mg Tablet, 20 MG ORAL BEDTIME, TAB 12/17/12 Zolpidem Tartrate* (AMBIEN*) 10 Mg Tablet, 10 MG ORAL BEDTIME 12/17/12 Discontinued Reported Medications Clonazepam* (KLONOPIN*) 1 Mg Tablet, 2 MG ORAL QHS, #15 TAB 0 Refills 11/15/16 Melatonin (Melatonin) 3 Mg Tab.rapdis, 3 TAB PO BEDTIME, TAB 04/14/15 Sertraline Hcl* (SERTRALINE HCL*) 25 Mg Tablet, 100 MG ORAL DAILY, TAB 04/14/15 Ferrous Sulfate* (FERROUS SULFATE*) 325 Mg Tablet, 325 MG ORAL DAILY, #30 TAB 12/17/12 Benazepril Hcl* (BENAZEPRIL HCL*) 10 Mg Tablet, 5 MG ORAL DAILY, TAB 12/17/12 Topiramate* (TOPAMAX*) 100 Mg Tablet, 400 MG ORAL DAILY, #60 TAB 12/17/12 Haloperidol (HALOPERIDOL) 2 Mg Tablet, 0.5 MG PO TID 12/17/12 Discontinued Scripts Ciprofloxacin Hcl* (CIPROFLOXACIN HCL*) 500 Mg Tablet, 500 MG ORAL Q12H, #14 TAB 0 Refills Prov:JOSE RAMON MERCEDES M.D. 08/26/16 Trazodone Hcl (DESYREL) 50 Mg Tablet, 50 MG ORAL BEDTIME, #30 TAB Prov:Willy (Bobhtpedro)Keena NP 04/16/15 Topiramate (TOPAMAX) 100 Mg Tablet, 300 MG ORAL TWICE A DAY, #60 TAB Prov:Aguilera (Vanchtein)Keena AUDIT CONSULTANT 04/16/15 Cephalexin* (KEFLEX*) 500 Mg Capsule, 500 MG ORAL EVERY 6 HOURS, #28 CAP Prov:ERIN PASTRANA D.O. 12/17/12 Allergies: Coded Allergies: No Known Allergies (Unverified , 12/17/12) GI: Plan Plan The patient was seen and examined at bedside and all new and available data was reviewed in the patients chart. I agree with the above findings, impression and plan. (Patient seen earlier today. Signature stamp does not reflect patient encounter time.). -Fabian Cab[facility]esDiamond [facility] Leo N.PBebe Nov 16, 2016 09:57 FABIAN THOMPSON Nov 19, 2016 09:12
[2016-11-16 12:00] VITALS: BP 104/70
[2016-11-16 16:00] VITALS: BP 101/66
[2016-11-16] MEDS ORDERED: Magnesium Citrate Liq Btl ORAL ONE (16:00)
[2016-11-16] MEDS ORDERED: Bisacodyl EC 5mg tab ORAL ONE (16:00)
[2016-11-16] MEDS ORDERED: Polyethylene Glycol 238gm bottle ORAL ONE (16:00)
[2016-11-16 19:47] VITALS: BP 110/73
[2016-11-16] MEDS ORDERED: TraZODone 100mg tab ORAL SCH (21:00)
[2016-11-16] MEDS ORDERED: TraZODone 50mg tab ORAL SCH (21:00)
[2016-11-16] MEDS ORDERED: Zolpidem 5mg tab ORAL SCH (21:00)
[2016-11-16] MEDS ORDERED: Nitroglycerin Subl 0.4mg tab (Bottle Of 25) SL PRN (22:45)
--- NOTE | 2016-11-16 22:45 | Consultation ---
History of Present Illness General Chief Complaint: Gastrointestinal Bleed Referring physician: CHANDRAKANT TERAN Reason for Consultation: LGIB Present Illness HPI 46 year old male with history of DD and autism. History is obtained from the caregiver who brought in the patient. the patient had a soft bowel movement that had bright red blood x3 episodes. the pt was agitated and disorganized. delusional. he has cognitive impairment and is aggressive Allergies: Coded Allergies: No Known Allergies (Unverified , 12/17/12) Medication History Scheduled Albuterol Sulfate* (Albuterol Repetabs*), 4 MG ORAL TWICE A DAY, (Reported) Benazepril Hcl (Benazepril Hcl), 5 MG ORAL DAILY, (Reported) Carbamazepine* (Carbamazepine*), 300 MG ORAL FOUR TIMES A DAY Clonazepam (Klonopin), 2 MG PO QHS, (Reported) Ferrous Sulfate (Iron), 325 MG PO DAILY, (Reported) Haloperidol* (Haldol*), 0.5 MG ORAL TID, (Reported) Melatonin (Melatonin), 3 MG ORAL QHS, (Reported) Omeprazole (Omeprazole), 40 MG ORAL DAILY, (Reported) Sertraline Hcl* (Zoloft*), 100 MG ORAL DAILY, (Reported) Simvastatin (Zocor), 20 MG ORAL BEDTIME, (Reported) Topiramate (Topiramate), 200 MG PO TID, (Reported) Trazodone* (Trazodone*), 150 MG ORAL BEDTIME, (Reported) Zolpidem Tartrate* (Ambien*), 10 MG ORAL BEDTIME, (Reported) Discontinued Medications Benazepril Hcl* (Benazepril Hcl*), 5 MG ORAL DAILY, (Reported) Discontinued Reason: Medication dose changed Cephalexin* (Keflex*), 500 MG ORAL EVERY 6 HOURS Discontinued Reason: Pt stopped taking med Ciprofloxacin Hcl* (Ciprofloxacin Hcl*), 500 MG ORAL Q12H Discontinued Reason: Pt stopped taking med Clonazepam* (Klonopin*), 2 MG ORAL QHS, (Reported) Discontinued Reason: Medication dose changed Ferrous Sulfate* (Ferrous Sulfate*), 325 MG ORAL DAILY, (Reported) Discontinued Reason: Medication dose changed Haloperidol (Haloperidol), 0.5 MG PO TID, (Reported) Discontinued Reason: Medication dose changed Melatonin (Melatonin), 3 TAB PO BEDTIME, (Reported) Discontinued Reason: Medication dose changed Sertraline Hcl* (Sertraline Hcl*), 100 MG ORAL DAILY, (Reported) Discontinued Reason: Medication dose changed Topiramate (Topamax), 300 MG ORAL TWICE A DAY Discontinued Reason: Medication dose changed Topiramate* (Topamax*), 400 MG ORAL DAILY, (Reported) Discontinued Reason: Medication dose changed Trazodone Hcl (Desyrel), 50 MG ORAL BEDTIME Discontinued Reason: Medication dose changed Patient History Limited by: medical condition History Provided By: Patient, Medical Record, Caregiver Healthcare decision maker Resuscitation status Full Code Advanced Directive on File Past Medical/Surgical History Past Medical/Surgical History: (1) Epileptic seizure, generalized (2) Postictal state (3) Developmental delay, moderate (4) Gastrointestinal hemorrhage (5) Developmental delay, severe (6) Seizure disorder (7) Agitation (8) Lower GI bleed (9) Colitis Review of Systems Psychiatric: Reports: anxiety, depressed feelings, emotional problems, hallucinations, prior hx Physical Exam General Appearance: alert, confused, agitated Neurologic: alert, disoriented, unresponsiveness, depressed affect Last 24 Hour Vital Signs Date Time Temp Pulse Resp B/P Pulse Ox O2 Delivery O2 Flow Rate FiO2 11/16/16 19:47 98.5 59 19 110/73 96 Room Air 11/16/16 16:00 96.9 56 17 101/66 100 Room Air 11/16/16 16:00 70 11/16/16 12:00 96.9 65 18 104/70 100 Room Air 11/16/16 12:00 59 11/16/16 08:54 102/70 11/16/16 08:00 54 11/16/16 08:00 96.7 52 17 102/70 99 Room Air 11/16/16 04:00 62 11/16/16 04:00 97.7 61 18 97/62 98 Room Air 11/16/16 00:00 64 11/15/16 23:20 97.3 60 18 97/64 98 Room Air Intake and Output 11/15/16 11/16/16 19:00 07:00 Intake Total 0 ml 700 ml Balance 0 ml 700 ml Intake Oral 0 ml IV Total 700 ml # Voids 2 Laboratory Tests Test 11/16/16 04:35 11/16/16 04:55 7/11/17 18:13 White Blood Count 4.2 K/UL (4.8-10.8) L Red Blood Count 4.06 M/UL (4.70-6.10) L Hemoglobin 12.2 G/DL (14.2-18.0) L Hematocrit 37.6 % (42.0-52.0) L Mean Corpuscular Volume 93 FL (80-99) Mean Corpuscular Hemoglobin 30.1 PG (27.0-31.0) Mean Corpuscular Hemoglobin Concent 32.4 G/DL (32.0-36.0) Red Cell Distribution Width 12.8 % (11.6-14.8) Platelet Count 152 K/UL (150-450) Mean Platelet Volume 5.8 FL (6.5-10.1) L Neutrophils (%) (Auto) 48.5 % (45.0-75.0) Lymphocytes (%) (Auto) 39.8 % (20.0-45.0) Monocytes (%) (Auto) 8.2 % (1.0-10.0) Eosinophils (%) (Auto) 2.8 % (0.0-3.0) Basophils (%) (Auto) 0.7 % (0.0-2.0) Prothrombin Time 10.1 SEC (9.30-11.50) Prothromb Time International Ratio 1.0 (0.9-1.1) Activated Partial Thromboplast Time 27 SEC (23-33) Sodium Level 141 mEQ/L (135-145) Potassium Level 3.9 mEQ/L (3.4-4.9) Chloride Level 107 mEQ/L (98-107) Carbon Dioxide Level 19 mEQ/L (20-30) L Anion Gap 15 (5-15) Blood Urea Nitrogen 13 mg/dL (7-23) Creatinine 0.7 mg/dL (0.7-1.2) Estimat Glomerular Filtration Rate > 60 mL/min (>60) Glucose Level 85 mg/dL (74-106) Calcium Level 8.7 mg/dL (8.6-10.2) Total Bilirubin 0.2 mg/dL (0.0-1.2) Aspartate Amino Transf (AST/SGOT) 11 U/L (5-40) Alanine Aminotransferase (ALT/SGPT) 7 U/L (3-41) Alkaline Phosphatase 150 U/L (40-129) H Total Protein 6.3 g/dL (6.6-8.7) L Albumin 3.8 g/dL (3.5-5.2) Globulin 2.5 g/dL Albumin/Globulin Ratio 1.5 (1.0-2.7) Amylase Level 27 U/L (10-110) Lipase 13 U/L (< 60) Stool Occult Blood Pending Height (Feet): 5 Height (Inches): 4.00 Weight (Pounds): 232 Medications Current Medications Medications (Trade) Dose Ordered Sig/Oracio Route PRN Reason Start Time Stop Time Status Last Admin Dose Admin Acetaminophen (Tylenol) 650 mg Q4H PRN ORAL T>100.5 11/15/16 18:15 12/15/16 18:14 Al Hydroxide/Mg Hydroxide (Mylanta II) 30 ml Q6H PRN ORAL dyspepsia 11/15/16 18:15 12/15/16 18:14 Benazepril HCl (Lotensin) 5 mg DAILY ORAL 11/16/16 09:00 12/16/16 08:59 Carbamazepine (TEGretol) 300 mg FOUR TIMES A DAY ORAL 11/15/16 21:00 12/15/16 20:59 11/16/16 21:23 Clonazepam (KlonoPIN) 2 mg QHS ORAL 11/15/16 21:00 11/22/16 20:59 11/16/16 21:25 Dextrose STAT PRN IV Hypoglycemia 11/15/16 18:15 12/15/16 18:14 Dextrose/Sodium Chloride (D5ns) 1,000 ml @ 100 mls/hr Q10H IV 11/15/16 20:00 12/15/16 19:59 11/16/16 11:56 Diphenhydramine HCl (Benadryl) 25 mg Q6H PRN ORAL Itching/Pruritis 11/15/16 18:15 12/15/16 18:14 Haloperidol Lactate (Haldol) 5 mg Q6H PRN IM Agitation 11/16/16 07:30 12/16/16 07:29 Morphine Sulfate (Morphine Sulfate) 2 mg Q4H PRN IVP Severe Pain (Pain Scale 7-10) 11/15/16 18:15 11/22/16 18:14 Nitroglycerin (Ntg) 0.4 mg Q5M X 3 DOSES PRN SL Prn Chest Pain 11/15/16 18:15 12/15/16 18:14 Ondansetron HCl (Zofran) 4 mg Q6H PRN IVP Nausea & Vomiting 11/15/16 18:15 12/15/16 18:14 Polyethylene Glycol (Miralax) 17 gm HSPRN PRN ORAL Constipation 11/15/16 21:00 12/15/16 20:59 Sertraline HCl (Zoloft) 100 mg DAILY ORAL 11/16/16 09:00 12/16/16 08:59 11/16/16 08:53 Topiramate (Topamax) 200 mg TID ORAL 11/16/16 20:00 12/16/16 19:59 11/16/16 21:24 Trazodone HCl (Desyrel) 150 mg BEDTIME ORAL 11/16/16 01:15 12/16/16 01:14 11/16/16 21:21 Zolpidem Tartrate (Ambien) 5 mg BEDTIME ORAL 11/16/16 21:00 12/16/16 20:59 11/16/16 21:25 Assessment/Plan Status: not improved, unchanged Assessment/Plan DD autism -trazadone 150 -topamax for seizure -klonopin -zoloft -haldol prn Abran Vigil M.D. Nov 16, 2016 22:45
[2016-11-17] MEDS ORDERED: Mylanta II UD 30ml ORAL PRN (00:15)
[2016-11-17] MEDS ORDERED: Haloperidol 5mg/ml Inj IM PRN ×4 (01:30→19:15)
[2016-11-17] MEDS: D5NS 1,000 ML IV SCH ×3 (01:57→17:38)
[2016-11-17] MEDS ORDERED: Morphine Sulfate 2mg/ml Inj IVP PRN (02:15)
[2016-11-17 04:00] VITALS: BP 92/59
[2016-11-17 07:21] LABS: PROTHROMBIN TIME 10.3 SEC (9.30-11.50)
[2016-11-17 07:22] LABS: ALANINE AMINOTRANSFERASE 10 U/L (3-41); ALBUMIN/GLOBULIN RATIO 1.6 (1.0-2.7); ANION GAP 10 (5-15); ASPARTATE AMINO TRANSFERASE 15 U/L (5-40); CALCIUM 8.7 mg/dL (8.6-10.2); CARBON DIOXIDE 19 mEQ/L (20-30); CHLORIDE 109 mEQ/L (98-107); CREATININE 0.8 mg/dL (0.7-1.2); GLOMERULAR FILTRATION RATE > 60 mL/min (>60); HEMOLYSIS 12; MAGNESIUM 2.2 mg/dL (1.7-2.5); PHOSPHORUS 3.3 mg/dL (2.5-4.8); POTASSIUM 3.9 mEQ/L (3.4-4.9); SODIUM 138 mEQ/L (135-145); TOTAL PROTEIN 6.9 g/dL (6.6-8.7)
--- NOTE | 2016-11-17 07:36 | Anethesia Preoperative Eval ---
Anesthesia Pre-op PMH/ROS General Date of Evaluation: Nov 17, 2016 Time of Evaluation: 07:31 Anesthesiologist: mark ASA Score: ASA 3 Mallampati Score Class I : Soft palate, uvula, fauces, pillars visible Class II: Soft palate, uvula, fauces visible Class III: Soft palate, base of uvula visible Class IV: Only hard plate visible Mallampati Classification: Class II Surgeon: briana Diagnosis: lower gi bleed Surgical Procedure: egd/colonoscopy Family History: no anesthesia problems Allergies: Coded Allergies: No Known Allergies (Unverified , 12/17/12) Medications: see eMAR Past Medical History Cardiovascular: Reports: HTN, other - hypercholesterolemia Pulmonary: Reports: asthma Gastrointestinal/Genitourinary: Reports: other - colitis Neurologic/Psychiatric: Reports: other - austism, seizure dz Other: obesity PSxH Narrative: abdominal sx Anesthesia Pre-op Phys. Exam Physician Exam Last Vital Signs Date Time Temp Pulse Resp B/P Pulse Ox O2 Delivery O2 Flow Rate FiO2 11/17/16 04:00 96.4 53 19 92/59 100 Room Air Constitutional: NAD Neurologic: CN 2-12 intact, other - altered mentation(autism) Cardiovascular: RRR Respiratory: CTA Gastrointestinal: S/NT/ND Airway Exam Mallampati Score: Class II MO: full Neck: 2fb ROM: full Anesthesia Pre-op A/P Labs Coagulation Test 11/17/16 05:35 Prothrombin Time 10.3 SEC (9.30-11.50) Prothromb Time International Ratio 1.0 (0.9-1.1) Activated Partial Thromboplast Time 27 SEC (23-33) Chemistry Test 11/17/16 05:35 Sodium Level 138 mEQ/L (135-145) Potassium Level 3.9 mEQ/L (3.4-4.9) Chloride Level 109 mEQ/L (98-107) H Carbon Dioxide Level 19 mEQ/L (20-30) L Anion Gap 10 (5-15) Blood Urea Nitrogen 10 mg/dL (7-23) Creatinine 0.8 mg/dL (0.7-1.2) Estimat Glomerular Filtration Rate > 60 mL/min (>60) Glucose Level 89 mg/dL (74-106) Calcium Level 8.7 mg/dL (8.6-10.2) Phosphorus Level 3.3 mg/dL (2.5-4.8) Magnesium Level 2.2 mg/dL (1.7-2.5) Total Bilirubin 0.3 mg/dL (0.0-1.2) Aspartate Amino Transf (AST/SGOT) 15 U/L (5-40) Alanine Aminotransferase (ALT/SGPT) 10 U/L (3-41) Alkaline Phosphatase 156 U/L (40-129) H Total Protein 6.9 g/dL (6.6-8.7) Albumin 4.3 g/dL (3.5-5.2) Globulin 2.6 g/dL Albumin/Globulin Ratio 1.6 (1.0-2.7) SILVERIO ESPINOZA Nov 17, 2016 07:36
[2016-11-17 08:00] VITALS: BP 115/70
[2016-11-17 08:24] LABS: BASOPHILS % (AUTO) 1.2 % (0.0-2.0); LYMPHOCYTES % (AUTO) 22.6 % (20.0-45.0); MEAN CORPUSCULAR HEMOGLOBIN 29.9 PG (27.0-31.0); MEAN CORPUSCULAR HGB CONC 31.7 G/DL (32.0-36.0); MEAN CORPUSCULAR VOLUME 94 FL (80-99); MEAN PLATELET VOLUME 6.1 FL (6.5-10.1); MONOCYTES % (AUTO) 6.4 % (1.0-10.0); NEUTROPHILS % (AUTO) 66.8 % (45.0-75.0); PLATELET COUNT 128 K/UL (150-450); RED BLOOD COUNT 4.33 M/UL (4.70-6.10); RED CELL DISTRIBUTION WIDTH 12.8 % (11.6-14.8); WHITE BLOOD COUNT 3.8 K/UL (4.8-10.8)
[2016-11-17] MEDS: carBAMazepine 200mg tab ORAL SCH ×4 (09:00→21:23)
[2016-11-17] MEDS: Benazepril 10mg tab ORAL SCH (09:00)
[2016-11-17] MEDS: Sertraline 50mg tab ORAL SCH (09:00)
[2016-11-17] MEDS: Topiramate 100mg tab ORAL SCH ×3 (09:00→17:38)
[2016-11-17] MEDS ORDERED: Lidocaine 1% Plain 30 ml INJ ONE (11:45)
[2016-11-17] MEDS ORDERED: Heparin 2000 units/Ns 1000ml INJ ONE (11:45)
[2016-11-17 12:00] VITALS: BP 120/65
--- NOTE | 2016-11-17 12:35 | GI Progress Note ---
Assessment/Plan Problems: (1) Lower GI bleed ICD Codes: K92.2 - Gastrointestinal hemorrhage, unspecified SNOMED: 42728831 (2) Developmental delay, severe ICD Codes: R62.50 - Unspecified lack of expected normal physiological development in childhood SNOMED: 494991688 (3) Gastrointestinal hemorrhage ICD Codes: K92.2 - Gastrointestinal hemorrhage, unspecified SNOMED: 46812864 (4) Agitation ICD Codes: R45.1 - Restlessness and agitation SNOMED: 49417267 (5) Colitis ICD Codes: K52.9 - Noninfective gastroenteritis and colitis, unspecified SNOMED: 41182004 Status: unchanged Status Narrative Discussed with Dr. Cornejo. Assessment/Plan EGD/colonoscopy rescheduled for tomorrow >> no IV access, PICC ordered. - maintain CLD only, NPO @ [facility]. - hold all blood thinners monitor H&H, transfuse prn lipase unremarkable ppi fu labs Subjective Gastrointestinal/Abdominal: Reports: no symptoms Objective Last 24 Hour Vital Signs Date Time Temp Pulse Resp B/P Pulse Ox O2 Delivery O2 Flow Rate FiO2 11/17/16 08:00 96.0 59 18 115/70 Room Air 11/17/16 04:00 96.4 53 19 92/59 100 Room Air 11/16/16 19:47 98.5 59 19 110/73 96 Room Air 11/16/16 16:00 96.9 56 17 101/66 100 Room Air 11/16/16 16:00 70 Intake and Output 11/16/16 11/17/16 19:00 07:00 Intake Total 1140 ml 600 ml Balance 1140 ml 600 ml Intake Oral 740 ml IV Total 400 ml 600 ml # Voids 2 3 Laboratory Tests Test 11/16/16 18:13 11/17/16 05:35 11/17/16 08:15 Stool Occult Blood Pending Prothrombin Time 10.3 SEC (9.30-11.50) Prothromb Time International Ratio 1.0 (0.9-1.1) Activated Partial Thromboplast Time 27 SEC (23-33) Sodium Level 138 mEQ/L (135-145) Potassium Level 3.9 mEQ/L (3.4-4.9) Chloride Level 109 mEQ/L (98-107) H Carbon Dioxide Level 19 mEQ/L (20-30) L Anion Gap 10 (5-15) Blood Urea Nitrogen 10 mg/dL (7-23) Creatinine 0.8 mg/dL (0.7-1.2) Estimat Glomerular Filtration Rate > 60 mL/min (>60) Glucose Level 89 mg/dL (74-106) Calcium Level 8.7 mg/dL (8.6-10.2) Phosphorus Level 3.3 mg/dL (2.5-4.8) Magnesium Level 2.2 mg/dL (1.7-2.5) Total Bilirubin 0.3 mg/dL (0.0-1.2) Aspartate Amino Transf (AST/SGOT) 15 U/L (5-40) Alanine Aminotransferase (ALT/SGPT) 10 U/L (3-41) Alkaline Phosphatase 156 U/L (40-129) H Total Protein 6.9 g/dL (6.6-8.7) Albumin 4.3 g/dL (3.5-5.2) Globulin 2.6 g/dL Albumin/Globulin Ratio 1.6 (1.0-2.7) White Blood Count 3.8 K/UL (4.8-10.8) L Red Blood Count 4.33 M/UL (4.70-6.10) L Hemoglobin 13.0 G/DL (14.2-18.0) L Hematocrit 40.9 % (42.0-52.0) L Mean Corpuscular Volume 94 FL (80-99) Mean Corpuscular Hemoglobin 29.9 PG (27.0-31.0) Mean Corpuscular Hemoglobin Concent 31.7 G/DL (32.0-36.0) L Red Cell Distribution Width 12.8 % (11.6-14.8) Platelet Count 128 K/UL (150-450) L Mean Platelet Volume 6.1 FL (6.5-10.1) L Neutrophils (%) (Auto) 66.8 % (45.0-75.0) Lymphocytes (%) (Auto) 22.6 % (20.0-45.0) Monocytes (%) (Auto) 6.4 % (1.0-10.0) Eosinophils (%) (Auto) 3.0 % (0.0-3.0) Basophils (%) (Auto) 1.2 % (0.0-2.0) Height (Feet): 5 Height (Inches): 5.00 Weight (Pounds): 232 General Appearance: no apparent distress, alert, obese Cardiovascular: normal rate Respiratory/Chest: normal breath sounds, no respiratory distress Abdominal Exam: normal bowel sounds, non tender, soft Heide Cabrales N.P. Nov 17, 2016 12:35
[2016-11-17 16:00] VITALS: BP 118/66
[2016-11-17] MEDS ORDERED: LORazepam Inj 2mg/ml 1ml IV PRN ×3 (16:00→19:15)
[2016-11-17] MEDS ORDERED: LORazepam 1mg tab ORAL PRN ×2 (16:00→19:15)
--- NOTE | 2016-11-17 16:15 | Pulmonology Progress Note ---
Assessment/Plan Problems: (1) Lower GI bleed (2) Developmental delay, severe (3) Agitation (4) Seizure disorder Assessment/Plan for colonoscopy in am, PICC line haldol and ativan to keep calm dvt prophylaxis Subjective ROS Limited/Unobtainable: No Interval Events: scheduled for colonsocpy in am Constitutional: Reports: no symptoms HEENT: Repors: no symptoms Respiratory: Reports: no symptoms Allergies: Coded Allergies: No Known Allergies (Unverified , 12/17/12) Objective Last 24 Hour Vital Signs Date Time Temp Pulse Resp B/P Pulse Ox O2 Delivery O2 Flow Rate FiO2 11/17/16 12:00 97.0 61 18 120/65 Room Air 11/17/16 08:00 96.0 59 18 115/70 Room Air 11/17/16 04:00 96.4 53 19 92/59 100 Room Air 11/16/16 19:47 98.5 59 19 110/73 96 Room Air Intake and Output 11/16/16 11/17/16 19:00 07:00 Intake Total 1140 ml 600 ml Balance 1140 ml 600 ml Intake Oral 740 ml IV Total 400 ml 600 ml # Voids 2 3 General Appearance: WD/WN HEENT: normocephalic Respiratory/Chest: chest wall non-tender, lungs clear Cardiovascular: normal peripheral pulses, normal rate Abdomen: normal bowel sounds, soft, non tender Genitourinary: normal external genitalia Extremities: no clubbing Skin: no rash Laboratory Tests 11/16/16 18:13: Stool Occult Blood Positive 11/17/16 05:35: Prothrombin Time 10.3, Prothromb Time International Ratio 1.0, Activated Partial Thromboplast Time 27, Sodium Level 138, Potassium Level 3.9, Chloride Level 109H, Carbon Dioxide Level 19L, Anion Gap 10, Blood Urea Nitrogen 10, Creatinine 0.8, Estimat Glomerular Filtration Rate > 60, Glucose Level 89, Calcium Level 8.7, Phosphorus Level 3.3, Magnesium Level 2.2, Total Bilirubin 0.3, Aspartate Amino Transf (AST/SGOT) 15, Alanine Aminotransferase (ALT/SGPT) 10, Alkaline Phosphatase 156H, Total Protein 6.9, Albumin 4.3, Globulin 2.6, Albumin/Globulin Ratio 1.6 11/17/16 08:15: White Blood Count 3.8L, Red Blood Count 4.33L, Hemoglobin 13.0L, Hematocrit 40.9L, Mean Corpuscular Volume 94, Mean Corpuscular Hemoglobin 29.9, Mean Corpuscular Hemoglobin Concent 31.7L, Red Cell Distribution Width 12.8, Platelet Count 128L, Mean Platelet Volume 6.1L, Neutrophils (%) (Auto) 66.8, Lymphocytes (%) (Auto) 22.6, Monocytes (%) (Auto) 6.4, Eosinophils (%) (Auto) 3.0, Basophils (%) (Auto) 1.2 Current Medications Medications (Trade) Dose Ordered Sig/Oracio Route PRN Reason Start Time Stop Time Status Last Admin Dose Admin Acetaminophen (Tylenol) 650 mg Q4H PRN ORAL T>100.5 11/17/16 02:15 12/17/16 02:14 Al Hydroxide/Mg Hydroxide (Mylanta II) 30 ml Q6H PRN ORAL dyspepsia 11/17/16 00:15 12/17/16 00:14 Benazepril HCl (Lotensin) 5 mg DAILY ORAL 11/17/16 09:00 12/17/16 08:59 Carbamazepine (TEGretol) 300 mg FOUR TIMES A DAY ORAL 11/17/16 09:00 12/17/16 08:59 11/17/16 13:12 Chlorhexidine Gluconate (Marialuisa-Hex 2%) 1 applic DAILY TOPIC 11/17/16 18:00 12/17/16 17:59 Clonazepam (KlonoPIN) 2 mg QHS ORAL 11/17/16 21:00 11/24/16 20:59 Dextrose (Dextrose 50%) STAT PRN IV Hypoglycemia 11/17/16 18:15 12/17/16 18:14 Dextrose/Sodium Chloride (D5ns) 1,000 ml @ 100 mls/hr Q10H IV 11/16/16 22:45 12/16/16 22:44 11/17/16 01:57 Diphenhydramine HCl (Benadryl) 25 mg Q6H PRN ORAL Itching/Pruritis 11/17/16 00:15 12/17/16 00:14 11/17/16 13:12 Morphine Sulfate (Morphine Sulfate) 2 mg Q4H PRN IVP Severe Pain (Pain Scale 7-10) 11/17/16 02:15 11/24/16 02:14 Nitroglycerin (Ntg) 0.4 mg Q5M X 3 DOSES PRN SL Prn Chest Pain 11/16/16 22:45 12/16/16 22:44 Ondansetron HCl (Zofran) 4 mg Q6H PRN IVP Nausea & Vomiting 11/17/16 00:15 12/17/16 00:14 Polyethylene Glycol (Miralax) 17 gm HSPRN PRN ORAL Constipation 11/17/16 21:00 12/17/16 20:59 Sertraline HCl (Zoloft) 100 mg DAILY ORAL 11/17/16 09:00 12/17/16 08:59 Topiramate (Topamax) 200 mg TID ORAL 11/17/16 09:00 12/17/16 08:59 11/17/16 12:53 Trazodone HCl (Desyrel) 150 mg BEDTIME ORAL 11/17/16 21:00 12/17/16 20:59 Zolpidem Tartrate (Ambien) 5 mg BEDTIME ORAL 11/17/16 21:00 12/17/16 20:59 CHANDRAKANT RIGGS Nov 17, 2016 16:15
[2016-11-17] MEDS ORDERED: D5NS 1000ml IV ONE (17:04)
[2016-11-17] MEDS: Dyna-Hex 2% Top Sol 8oz TOPIC SCH (17:25)
--- NOTE | 2016-11-17 17:36 | General Progress Note ---
Assessment/Plan Status: not improved Assessment/Plan The pt lacks capacity to make any decisions due to severe cognitive impairment. Subjective Allergies: Coded Allergies: No Known Allergies (Unverified , 12/17/12) Subjective senior care manager at bedside. the pt was not engaged due to severe dd and autism. Objective Last 24 Hour Vital Signs Date Time Temp Pulse Resp B/P Pulse Ox O2 Delivery O2 Flow Rate FiO2 11/17/16 16:00 97.0 68 18 118/66 97 Room Air 11/17/16 12:00 97.0 61 18 120/65 Room Air 11/17/16 08:00 96.0 59 18 115/70 Room Air 11/17/16 04:00 96.4 53 19 92/59 100 Room Air 11/16/16 19:47 98.5 59 19 110/73 96 Room Air Intake and Output 11/16/16 11/17/16 19:00 07:00 Intake Total 1140 ml 600 ml Balance 1140 ml 600 ml Intake Oral 740 ml IV Total 400 ml 600 ml # Voids 2 3 Laboratory Tests 11/16/16 18:13: Stool Occult Blood Positive 11/17/16 05:35: Prothrombin Time 10.3, Prothromb Time International Ratio 1.0, Activated Partial Thromboplast Time 27, Sodium Level 138, Potassium Level 3.9, Chloride Level 109H, Carbon Dioxide Level 19L, Anion Gap 10, Blood Urea Nitrogen 10, Creatinine 0.8, Estimat Glomerular Filtration Rate > 60, Glucose Level 89, Calcium Level 8.7, Phosphorus Level 3.3, Magnesium Level 2.2, Total Bilirubin 0.3, Aspartate Amino Transf (AST/SGOT) 15, Alanine Aminotransferase (ALT/SGPT) 10, Alkaline Phosphatase 156H, Total Protein 6.9, Albumin 4.3, Globulin 2.6, Albumin/Globulin Ratio 1.6 11/17/16 08:15: White Blood Count 3.8L, Red Blood Count 4.33L, Hemoglobin 13.0L, Hematocrit 40.9L, Mean Corpuscular Volume 94, Mean Corpuscular Hemoglobin 29.9, Mean Corpuscular Hemoglobin Concent 31.7L, Red Cell Distribution Width 12.8, Platelet Count 128L, Mean Platelet Volume 6.1L, Neutrophils (%) (Auto) 66.8, Lymphocytes (%) (Auto) 22.6, Monocytes (%) (Auto) 6.4, Eosinophils (%) (Auto) 3.0, Basophils (%) (Auto) 1.2 Height (Feet): 5 Height (Inches): 5.00 Weight (Pounds): 232 General Appearance: no apparent distress, alert, overweight Neurologic: alert, disoriented, unresponsive, depressed affect - the pt was unable to understand process communicate or appreciate the info was given to him. Abran Vigil M.D. Nov 17, 2016 17:36
[2016-11-17 20:00] VITALS: BP 100/55
[2016-11-17] MEDS ORDERED: TraZODone 50mg tab ORAL SCH (21:00)
[2016-11-17] MEDS ORDERED: Miralax 17gm pkt ORAL PRN (21:00)
[2016-11-17] MEDS ORDERED: Zolpidem 5mg tab ORAL SCH (21:00)
[2016-11-18] VITALS: BP 110/59
[2016-11-18 04:00] VITALS: BP 98/65
[2016-11-18] MEDS: D5NS 1,000 ML IV SCH ×2 (04:45→14:45)
[2016-11-18] MEDS ORDERED: Lidocaine 1% Plain 30 ml INJ PRN (07:15)
[2016-11-18] MEDS ORDERED: Heparin Sod 1000 units/ml 10ml IV PRN (07:15)
[2016-11-18] MEDS ORDERED: Heparin 2000 units/Ns 1000ml INJ PRN (07:15)
[2016-11-18 07:26] LABS: ANION GAP 12 (5-15); CALCIUM 8.5 mg/dL (8.6-10.2); CARBON DIOXIDE 18 mEQ/L (20-30); CHLORIDE 107 mEQ/L (98-107); CREATININE 0.8 mg/dL (0.7-1.2); GLOMERULAR FILTRATION RATE > 60 mL/min (>60); HEMOLYSIS 47; POTASSIUM 4.5 mEQ/L (3.4-4.9); SODIUM 137 mEQ/L (135-145)
[2016-11-18 08:31] VITALS: BP 110/67
[2016-11-18] MEDS: Dyna-Hex 2% Top Sol 8oz TOPIC SCH (08:31)
[2016-11-18] MEDS: Benazepril 10mg tab ORAL SCH (09:00)
[2016-11-18] MEDS: Sertraline 50mg tab ORAL SCH (09:31)
[2016-11-18] MEDS: carBAMazepine 200mg tab ORAL SCH ×2 (09:31→13:49)
[2016-11-18] MEDS: Topiramate 100mg tab ORAL SCH ×2 (09:31→13:49)
[2016-11-18 09:35] LABS: BASOPHILS % (AUTO) 0.5 % (0.0-2.0); EOSINOPHILS % (AUTO) 2.7 % (0.0-3.0); LYMPHOCYTES % (AUTO) 25.2 % (20.0-45.0); MEAN CORPUSCULAR HGB CONC 32.5 G/DL (32.0-36.0); MEAN CORPUSCULAR VOLUME 92 FL (80-99); MEAN PLATELET VOLUME 5.3 FL (6.5-10.1); MONOCYTES % (AUTO) 6.9 % (1.0-10.0); NEUTROPHILS % (AUTO) 64.7 % (45.0-75.0); PLATELET COUNT 144 K/UL (150-450); RED CELL DISTRIBUTION WIDTH 12.5 % (11.6-14.8)
[2016-11-18 09:50] LABS: PROTHROMBIN TIME 10.4 SEC (9.30-11.50)
[2016-11-18 12:36] VITALS: BP 130/91
--- NOTE | 2016-11-18 12:53 | Diagnostic Imaging Report ---
APPROVED REPORT CPT Code: 30693 Present Symptoms Lower Extremity Pain: Lower Extremity Edema: BILATERAL: Imaging reveals a patent deep venous system bilaterally. There is no evidence of thrombus within the femoral, popliteal or tibial segments. The greater saphenous veins are also within normal limits. Doppler indicates normal spontaneous flow within these segments.
--- NOTE | 2016-11-18 14:28 | Pulmonology Progress Note ---
Assessment/Plan Problems: (1) Lower GI bleed (2) Developmental delay, severe (3) Agitation (4) Seizure disorder Assessment/Plan pt h/h has been stable no more bleeding it is extremely difficult to put a PICC line, and do the colonoscopy in this age group, most common cause of rectal bleeding is the hemorrhoids. Will dc with outpatient f/u and labs Subjective Constitutional: Reports: no symptoms HEENT: Repors: no symptoms Respiratory: Reports: no symptoms Allergies: Coded Allergies: No Known Allergies (Unverified , 12/17/12) Objective Last 24 Hour Vital Signs Date Time Temp Pulse Resp B/P Pulse Ox O2 Delivery O2 Flow Rate FiO2 11/18/16 12:36 97.2 59 18 130/91 95 Room Air 11/18/16 09:00 110/67 11/18/16 08:31 97.1 83 18 110/67 98 Room Air 11/18/16 04:00 97.6 70 19 98/65 100 Room Air 11/18/16 00:00 97.0 64 17 110/59 94 11/17/16 20:00 96.4 55 18 100/55 93 Room Air 11/17/16 16:00 97.0 68 18 118/66 97 Room Air Intake and Output 11/17/16 11/18/16 19:00 07:00 Intake Total 360 ml 240 ml Balance 360 ml 240 ml Intake Oral 360 ml 240 ml # Voids 5 3 General Appearance: WD/WN HEENT: normocephalic, atraumatic Respiratory/Chest: chest wall non-tender, lungs clear Cardiovascular: normal peripheral pulses, normal rate Abdomen: normal bowel sounds, soft, non tender Genitourinary: normal external genitalia Extremities: no clubbing Skin: no lesions Laboratory Tests 11/18/16 04:35: Sodium Level 137, Potassium Level 4.5, Chloride Level 107, Carbon Dioxide Level 18L, Anion Gap 12, Blood Urea Nitrogen 11, Creatinine 0.8, Estimat Glomerular Filtration Rate > 60, Glucose Level 89, Calcium Level 8.5L 11/18/16 09:25: White Blood Count 4.0L, Red Blood Count 4.10L, Hemoglobin 12.3L, Hematocrit 37.8L, Mean Corpuscular Volume 92, Mean Corpuscular Hemoglobin 30.0, Mean Corpuscular Hemoglobin Concent 32.5, Red Cell Distribution Width 12.5, Platelet Count 144L, Mean Platelet Volume 5.3L, Neutrophils (%) (Auto) 64.7, Lymphocytes (%) (Auto) 25.2, Monocytes (%) (Auto) 6.9, Eosinophils (%) (Auto) 2.7, Basophils (%) (Auto) 0.5, Prothrombin Time 10.4, Prothromb Time International Ratio 1.0, Activated Partial Thromboplast Time 29 Current Medications Medications (Trade) Dose Ordered Sig/Oracio Route PRN Reason Start Time Stop Time Status Last Admin Dose Admin Acetaminophen (Tylenol) 650 mg Q4H PRN ORAL T>100.5 11/17/16 02:15 12/17/16 02:14 Al Hydroxide/Mg Hydroxide (Mylanta II) 30 ml Q6H PRN ORAL dyspepsia 11/17/16 00:15 12/17/16 00:14 Benazepril HCl (Lotensin) 5 mg DAILY ORAL 11/17/16 09:00 12/17/16 08:59 Carbamazepine (TEGretol) 300 mg FOUR TIMES A DAY ORAL 11/17/16 09:00 12/17/16 08:59 11/18/16 13:49 Chlorhexidine Gluconate (Marialuisa-Hex 2%) 1 applic DAILY TOPIC 11/17/16 18:00 12/17/16 17:59 11/17/16 17:25 Clonazepam (KlonoPIN) 2 mg QHS ORAL 11/17/16 21:00 11/24/16 20:59 11/17/16 21:23 Dextrose (Dextrose 50%) STAT PRN IV Hypoglycemia 11/17/16 18:15 12/17/16 18:14 Dextrose/Sodium Chloride (D5ns) 1,000 ml @ 100 mls/hr Q10H IV 11/16/16 22:45 12/16/16 22:44 11/17/16 17:38 Diphenhydramine HCl (Benadryl) 25 mg Q6H PRN ORAL Itching/Pruritis 11/17/16 00:15 12/17/16 00:14 11/17/16 13:12 Haloperidol (Haldol) 5 mg Q2H PRN ORAL Agitation 11/17/16 19:15 12/17/16 19:14 11/18/16 03:06 Haloperidol Lactate (Haldol) 5 mg Q2H PRN IM Agitation 11/17/16 19:15 12/17/16 19:14 Heparin Sodium (Porcine) (Heparin Sod 1000 units/ml 10ml) 1,000 unit ONCE PRN IV PICC PLACEMENT 11/18/16 07:15 11/19/16 23:59 Heparin Sodium/ Sodium Chloride (Heparin 2000 units/Ns 1000ml premix) 2,000 unit ONCE PRN INJ PICC PLACEMENT 11/18/16 07:15 11/19/16 23:59 Lidocaine HCl (Xylocaine 1% 30ml) 30 ml ONCE PRN INJ PICC PLACEMENT 11/18/16 07:15 11/19/16 23:59 Lorazepam (Ativan 2mg/ml 1ml) 2 mg Q2H PRN IV For Anxiety 11/17/16 19:15 11/24/16 19:14 Lorazepam (Ativan) 2 mg Q2H PRN ORAL For Anxiety 11/17/16 19:15 11/24/16 19:14 11/18/16 02:02 Morphine Sulfate (Morphine Sulfate) 2 mg Q4H PRN IVP Severe Pain (Pain Scale 7-10) 11/17/16 02:15 11/24/16 02:14 Nitroglycerin (Ntg) 0.4 mg Q5M X 3 DOSES PRN SL Prn Chest Pain 11/16/16 22:45 12/16/16 22:44 Ondansetron HCl (Zofran) 4 mg Q6H PRN IVP Nausea & Vomiting 11/17/16 00:15 12/17/16 00:14 Polyethylene Glycol (Miralax) 17 gm HSPRN PRN ORAL Constipation 11/17/16 21:00 12/17/16 20:59 Sertraline HCl (Zoloft) 100 mg DAILY ORAL 11/17/16 09:00 12/17/16 08:59 11/18/16 09:31 Topiramate (Topamax) 200 mg TID ORAL 11/17/16 09:00 12/17/16 08:59 11/18/16 13:49 Trazodone HCl (Desyrel) 150 mg BEDTIME ORAL 11/17/16 21:00 12/17/16 20:59 11/17/16 21:22 Zolpidem Tartrate (Ambien) 5 mg BEDTIME ORAL 11/17/16 21:00 12/17/16 20:59 11/17/16 21:22 CHANDRAKANT RIGGS Nov 18, 2016 14:28
[2016-11-18 16:00] VITALS: BP 96/53
[2016-11-18] MEDS ORDERED: D5NS 1000ml IV ONE (17:22)
--- NOTE | 2016-11-18 23:30 | General Progress Note ---
Assessment/Plan Status: stable, not improved Assessment/Plan The pt lacks capacity to make any decisions due to severe cognitive impairment. Subjective Constitutional: Reports: malaise, weakness Neurologic/Psychiatric: Reports: anxiety, depressed, emotional problems Allergies: Coded Allergies: No Known Allergies (Unverified , 12/17/12) Subjective health care aide at bedside. the pt was not engaged due to severe dd and autism. Objective Last 24 Hour Vital Signs Date Time Temp Pulse Resp B/P Pulse Ox O2 Delivery O2 Flow Rate FiO2 11/18/16 16:00 97.6 64 18 96/53 95 Room Air 11/18/16 12:36 97.2 59 18 130/91 95 Room Air 11/18/16 09:00 110/67 11/18/16 08:31 97.1 83 18 110/67 98 Room Air 11/18/16 04:00 97.6 70 19 98/65 100 Room Air 11/18/16 00:00 97.0 64 17 110/59 94 Intake and Output 11/17/16 11/18/16 19:00 07:00 Intake Total 360 ml 240 ml Balance 360 ml 240 ml Intake Oral 360 ml 240 ml # Voids 5 3 Laboratory Tests 11/18/16 04:35: Sodium Level 137, Potassium Level 4.5, Chloride Level 107, Carbon Dioxide Level 18L, Anion Gap 12, Blood Urea Nitrogen 11, Creatinine 0.8, Estimat Glomerular Filtration Rate > 60, Glucose Level 89, Calcium Level 8.5L 11/18/16 09:25: White Blood Count 4.0L, Red Blood Count 4.10L, Hemoglobin 12.3L, Hematocrit 37.8L, Mean Corpuscular Volume 92, Mean Corpuscular Hemoglobin 30.0, Mean Corpuscular Hemoglobin Concent 32.5, Red Cell Distribution Width 12.5, Platelet Count 144L, Mean Platelet Volume 5.3L, Neutrophils (%) (Auto) 64.7, Lymphocytes (%) (Auto) 25.2, Monocytes (%) (Auto) 6.9, Eosinophils (%) (Auto) 2.7, Basophils (%) (Auto) 0.5, Prothrombin Time 10.4, Prothromb Time International Ratio 1.0, Activated Partial Thromboplast Time 29 Height (Feet): 5 Height (Inches): 5.00 Weight (Pounds): 232 General Appearance: no apparent distress, confused, agitated Neurologic: alert, disoriented, unresponsive, depressed affect Abran Vigil M.D. Nov 18, 2016 23:30
--- NOTE | 2016-11-20 05:00 | Discharge Summary 2 SIG ---
DATE OF ADMISSION: 11/15/2016 DATE OF DISCHARGE: 11/18/2016 CONSULTANTS: 1. Abran Vigil M.D. 2. Fabian Cornejo M.D. BRIEF HOSPITAL COURSE: The patient is a 46-year-old male with history of mental retardation and autism, was brought in due to bright red blood stools x3. There was no hematuria, no constipation, and no history of bleeding. On evaluation at ED, hemoglobin was 12.5, hematocrit was 35, and platelets 144,000. EKG showed normal sinus rhythm with no ST to T-wave findings. He was then admitted to telemetry for GI bleed, agitation, and seizure disorder. He was placed on NPO and was given IV fluids. Lipase was unremarkable. He was given proton-pump inhibitors b.i.d. He was planned for colonoscopy, however did not have any IV line, was ordered to put PICC line, however also had difficulty with procedure. Hemoglobin and hematocrit have been stable and there was no bleeding noted. The patient was eventually discharged home and advised to follow up with PMD as outpatient for follow up laboratories. FINAL DIAGNOSES: 1. Lower gastrointestinal bleed. 2. Severe developmental delay. 3. Agitation. 4. Seizure disorder. 5. Non-infective gastroenteritis and colitis. Evette Almaraz M.D. I have been assigned to dictate discharge summary on this account and I was not involved in the patient's management. Jerica Busby N.P. DR: Jair JOB#: [id number] CC:
== END 2016-11-18 17:23 | DRG 378 ==
LOC: ENRESERV → ENRESERVDT → ENRESERVTM → EMR 15:38 → 2E 16:13 → EDBEDREQ 21:38 → 4E 11-16 22:52
DX: K92.2 Gastrointestinal hemorrhage, unspecified (principal); F84.0 Autistic disorder; F72 Severe intellectual disabilities; G40.909 Epilepsy, unspecified, not intractable, without status epilepticus; K52.9 Noninfective gastroenteritis and colitis, unspecified; R45.1 Restlessness and agitation
CPT/HCPCS: 36415; 36569; 76937; 80048; 80053; 81003; 82150; 82270; 83690; 83735; 84100; 85025; 85610; 85730; 86850; 86900; 86901; 93005; 93970

== ENCOUNTER 2019-06-14 12:32 | Inpatient (IN) | payer MEDICARE, MEDICAID ==
[~2019-06-14] VITALS: Ht 157.5 cm; Wt 81.2 kg
[~2019-06-14 12:32] MED LIST changes: +BENAZEPRIL HCL5 MG ORAL; +HALOPERIDOL0.5 MG ORAL; +KLONOPIN1 MG ORAL; +KLONOPIN2 MG PO; +MELATONIN3 MG ORAL; +OMEPRAZOLE40 M1 ORAL; +TOPIRAMATE200 MG PO; +TRAZODONE HCL150 MG ORAL
[2019-06-14 13:00] VITALS: BP 129/70
--- NOTE | 2019-06-14 13:00 | NUR ---
ED Nurse Note: PT FROM HOME AND BROUGHT IN BY HIS CAREGIVERS DUE TO EPISODES FO SEIZURES. CAREGIVER REPORTS PT FELL TWICE AND HIT HIS HEAD ON THE FLOOR AND LAST FALL WAS 2 WEEKS AGO. SINCE THEN PT HAD BEEN DISPLAYING SYMPTOMS OF LIP SMACKING, AND FOAMING COMING OUT FROM HIS MOUTH. AWAKE, BUT DISORIENTED, NOT ABLE TO FOLLOW COMMANDS WITH NON LABORED BREATHING. NOTED 2 STAPLED WOUNDS ON POSTERIOR HEAD FROM PREVIOUS FALL. PT IS RESTLESS AND UNCOOPERATIVE.
--- NOTE | 2019-06-14 13:20 | NUR ---
ED Nurse Note: COLLECTED BLOOD AND URINE THEN SENT.
[2019-06-14 13:38] LABS: BASOPHILS % (AUTO) 0.4 % (0.0-2.0); EOSINOPHILS % (AUTO) 0.4 % (0.0-3.0); HEMATOCRIT 38.4 % (42.0-52.0); MEAN CORPUSCULAR VOLUME 88 FL (80-99); MONOCYTES % (AUTO) 7.7 % (1.0-10.0); NEUTROPHILS % (AUTO) 77.5 % (45.0-75.0); PLATELET COUNT 222 K/UL (150-450); RED BLOOD COUNT 4.34 M/UL (4.70-6.10); RED CELL DISTRIBUTION WIDTH 12.4 % (11.6-14.8); WHITE BLOOD COUNT 8.6 K/UL (4.8-10.8)
[2019-06-14 13:53] LABS: APPEARANCE,URINE CLEAR; BILIRUBIN, URINE NEGATIVE (NEGATIVE); COLOR,URINE PALE YELLOW; GLUCOSE, URINE (UA) NEGATIVE (NEGATIVE); KETONES,URINE NEGATIVE (NEGATIVE); LEUKOCYTE ESTERASE ,URINE NEGATIVE (NEGATIVE); NITRITE,URINE NEGATIVE (NEGATIVE); PH,URINE 6.5 (4.5-8.0); PROTEIN,URINE NEGATIVE (NEGATIVE); UROBILINOGEN,URINE NORMAL MG/DL (0.0-1.0)
[2019-06-14] MEDS ORDERED: LORazepam Inj 2mg/ml 1ml IV ONE ×2 (14:00→16:00)
[2019-06-14 14:03] LABS: ANION GAP 12 mmol/L (5-15); BLOOD UREA NITROGEN 19 mg/dL (7-18); CALCIUM 9.2 MG/DL (8.5-10.1); CARBON DIOXIDE 26 MMOL/L (21-32); CHLORIDE 102 MMOL/L (98-107); CREATININE 0.9 MG/DL (0.55-1.30); POTASSIUM 3.7 MMOL/L (3.5-5.1); SODIUM 140 MMOL/L (136-145)
[2019-06-14 14:07] LABS: ALANINE AMINOTRANSFERASE 19 U/L (12-78); ALBUMIN/GLOBULIN RATIO 1.1 (1.0-2.7); ALKALINE PHOSPHATASE 236 U/L (46-116); ASPARTATE AMINO TRANSFERASE 15 U/L (15-37); BILIRUBIN,TOTAL 0.2 MG/DL (0.2-1.0)
--- NOTE | 2019-06-14 14:15 | NUR ---
ED Nurse Note: PT RESTLESS AND KEEPS ON MOVING. UNABLE TO DO CT. TYLERAL NOTIFIED.
--- NOTE | 2019-06-14 14:27 | Emergency Room Report ---
History of Present Illness General Chief Complaint: Seizure Source: Caregiver Present Illness HPI 49-year-old male with history of schizophrenia as well as tonic-clonic seizures currently controlled coming from assisted living facility with caregiver complaining of 2 weeks of seizure exacerbation post head trauma. According to the caregiver patient fell on his head 2 weeks ago, lost consciousness, was evaluated at a different emergency department and head CT scan was normal. Patient however has been experiencing recurrent seizure since the fall. Last visit to the neurologist was a week ago and MRI was within normal limits. Patient has been having multiple seizure episodes today with increased lipsmacking. Caregiver reported lipsmacking exacerbates when the seizures are continuous. However appears to be EPS related. Patient is on a lot of medication for seizure and schizophrenia. Denies any new fall or injury. Denies urinary or bowel incontinence. Patient is having multiple seizure episodes upon arrival. Did not respond well to the first dose of Ativan. Denies abdominal pain, nausea vomiting, no other associated symptoms. Patient to be admitted for observation due to recurrent seizures. Benadryl 50 mg IV was administered due to increased lipsmacking and possible EPS. Patient is afebrile Allergies: Coded Allergies: PHENYTOIN (Verified Allergy, Unknown, 06/14/19) Patient History Past Medical History: see triage record Past Surgical History: none Pertinent Family History: none Immunizations: UTD Reviewed Nursing Documentation: PMH: Agreed; PSxH: Agreed Nursing Documentation-PMH Past Medical History: No History, Except For Hx Cardiac Problems: Yes Hx Hypertension: Yes Hx Asthma: Yes Hx Cancer: No Hx Gastrointestinal Problems: Yes - Gastrointedstinal hemorrage Hx Neurological Problems: Yes - moderated Mental retardation, Autism, Hx Seizures: Yes Review of Systems All Other Systems: negative except mentioned in HPI Physical Exam Vital Signs Date Time Temp Pulse Resp B/P (MAP) Pulse Ox O2 Delivery O2 Flow Rate FiO2 06/14/19 12:50 99.1 105 28 136/65 (88) 95 Room Air Sp02 EP Interpretation: reviewed, normal General Appearance: moderate distress Head: normocephalic, atraumatic Eyes: bilateral eye normal inspection, bilateral eye PERRL ENT: hearing grossly normal, normal pharynx, no angioedema, normal voice, other - lipsmacking observed Neck: full range of motion, supple/symm/no masses Respiratory: chest non-tender, lungs clear, normal breath sounds, no rhonchi, no wheezing, speaking full sentences Cardiovascular #1: no edema, no murmur, normal capillary refill Cardiovascular #2: 2+ carotid (R), 2+ carotid (L), 2+ radial (R), 2+ radial (L) , 2+ dorsalis pedis (R), 2+ dorsalis pedis (L) Gastrointestinal: normal bowel sounds, non tender, soft, non-distended, no guarding, no rebound Rectal: deferred Genitourinary: no CVA tenderness Neurologic: alert, distal neuro normal, sensory intact, responsive, abnormal gait Psychiatric: judgement/insight normal, memory normal, mood/affect normal, no suicidal/homicidal ideation Skin: no rash Lymphatic: no adenopathy Medical Decision Making PA Attestation All my diagnosis and treatment plans were reviewed ad discussed with my supervising physician Dr. Lennon Diagnostic Impression: Primary Impression: Recurrent seizures ER Course 49-year-old male with history of schizophrenia as well as tonic-clonic seizures currently controlled coming from assisted living facility with caregiver complaining of 2 weeks of seizure exacerbation post head trauma. According to the caregiver patient fell on his head 2 weeks ago, lost consciousness, was evaluated at a different emergency department and head CT scan was normal. Patient however has been experiencing recurrent seizure since the fall. Last visit to the neurologist was a week ago and MRI was within normal limits. Patient has been having multiple seizure episodes today with increased lipsmacking. Caregiver reported lipsmacking exacerbates when the seizures are continuous. However appears to be EPS related. Patient is on a lot of medication for seizure and schizophrenia. Denies any new fall or injury. Denies urinary or bowel incontinence. Patient is having multiple seizure episodes upon arrival. Did not respond well to the first dose of Ativan. Denies abdominal pain, nausea vomiting, no other associated symptoms. Patient to be admitted for observation due to recurrent seizures. Benadryl 50 mg IV was administered due to increased lipsmacking and possible EPS. Patient is afebrile Ddx considered but are not limited to: cerebral hematoma, concussion, skull fracture, head contusion, recurrent seizure, EPS Vital signs: are WNL, pt. is afebrile H&PE are most consistent with: Recurrent seizure ORDERS: head CT no contrast, CBC, CMP, PT and PTT, UA, tox screen, ED INTERVENTIONS: Ativan, Benadryl IV Patient was admitted with diagnosis of recurrent seizures to under supervision of : Saji pt stable at time of admission CT/MRI/US Diagnostic Results CT/MRI/US Diagnostic Results : Imaging Test Ordered: CT head no contrast Impression No intracranial bleed, no skull fracture Last Vital Signs Date Time Temp Pulse Resp B/P (MAP) Pulse Ox O2 Delivery O2 Flow Rate FiO2 06/14/19 12:50 99.1 105 28 136/65 (88) 95 Room Air Disposition: ADMITTED INPATIENT Condition: Stable Referrals: Elgin Sommers MD (PCP) Asaf Ram Jun 14, 2019 14:27
[2019-06-14] MEDS ORDERED: DiphenhydrAMINE 50mg/ml Inj IVP ONE (14:30)
--- NOTE | 2019-06-14 14:35 | NUR ---
ED Nurse Note: PT TAKEN TO CT VIA LIN.
--- NOTE | 2019-06-14 14:45 | NUR ---
ED Nurse Note: PT CAME BACK FROM CT VIA KARI.
[2019-06-14 15:10] VITALS: BP 135/76
--- NOTE | 2019-06-14 15:16 | Diagnostic Imaging Report ---
Indication: Headache Technique: Contiguous 5 mm thick transaxial imaging of the head obtained in a Siemens Sensation [address] scanner. Soft tissue and bone windows generated. Automatic Exposure Control was utilized. Total Dose length Product (DLP): 1489.[address] Dose Index Volume (CTDIvol): 62.7 mGy Comparison: none Findings: The size and configuration of the cortical sulci, basal cisterns, and ventricles are within normal limits for age. There is no mass effect, midline shift, or edema identified. There is no evidence of acute hemorrhage or abnormal intra-axial or extra-axial fluid collections. The bones and soft tissues are unremarkable. There is soft tissue swelling involving the left posterior scalp near the vertex. Impression: No mass effect, edema or acute bleed. Left scalp contusion The CT scanner at [facility] is accredited by the [employer] and the scans are performed using dose optimization techniques as appropriate to a performed exam including Automatic Exposure control.
--- NOTE | 2019-06-14 16:33 | NUR ---
ED Nurse Note: REPORT GIVEN TO FLOYD OCHOA OF TELEMETRY UNIT.
[2019-06-14 16:34] VITALS: BP 132/76
--- NOTE | 2019-06-14 16:35 | NUR ---
ED Nurse Note: PT NEEDS A SITTER. ER CHARGE NURSE WAS NOTIFIED.
--- NOTE | 2019-06-14 18:25 | NUR ---
ED Nurse Note: WAITING FOR SITTER.
[2019-06-14] MEDS ORDERED: Topiramate 100mg tab ORAL ONE (19:00)
[2019-06-14] MEDS ORDERED: Lacosamide 50mg tablet ORAL ONE (19:00)
--- NOTE | 2019-06-14 19:24 | NUR ---
HAND-OFF: Report given to JULIO CESAR COHOA.
[2019-06-14 19:30] VITALS: BP 128/70
--- NOTE | 2019-06-14 19:35 | NUR ---
ED Nurse Note: Sitter at bedside, pt given PO medications without issue. Tolerated well. Pt skin is intact, no open wounds, blanchable redness on back due to laying on it. Caregiver at bedside aware of intact skin. standards analyst made aware as well. Pt given a sandwhich and juice per caregiver request. Report endorsed to recieving RN
--- NOTE | 2019-06-14 19:40 | NUR ---
TRANSFER TO FLOOR: Patient transferred to as ordered, per . Report given to GABRIELA Walker. Belongings and medications given to . Family and or S/O informed of transfer.
--- NOTE | 2019-06-14 19:50 | NUR ---
NURSE NOTES: Received report from KIRA Shaa RN. patient was transferred to Telemetry unit from ER via [facility] without incident. No signs of acute distress noted but patient noted to be restless, agitated and uncooperative. Caregiver and one to one sitter at bedside. Checked IV site, patent and flushed. No erythema, bleeding, or infiltration noted. Belongings was checked with caregiver and transferring RN. Skin assessment performed; sacral redness noted, wound photo taken. Patient put on Tele box, Sinus rhythm on monitor. Bed at lowest position, brakes on, siderails up x3. Call light within reach. will continue plan of care.
--- NOTE | 2019-06-14 20:18 | NUR ---
NURSE NOTES: Called Dr. Sommers for admission orders. Awaiting callback.
--- NOTE | 2019-06-14 20:33 | NUR ---
NURSE NOTES: Received admission orders. Noted and carried out.
[2019-06-14 20:41] VITALS: BP 111/69
[2019-06-14] MEDS ORDERED: LORazepam Inj 2mg/ml 1ml IV PRN (20:45)
[2019-06-14] MEDS ORDERED: Zolpidem 5mg tab ORAL PRN (21:00)
[2019-06-14] MEDS ORDERED: Zolpidem 5mg tab ORAL SCH (21:00)
[2019-06-14] MEDS ORDERED: TraZODone 100mg tab ORAL SCH (21:00)
[2019-06-14] MEDS: carBAMazepine 200mg tab ORAL SCH (21:31)
[2019-06-14 23:56] VITALS: BP 115/69
--- NOTE | 2019-06-15 00:15 | History and Physical Report ---
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 [employer] Specialist took a picture while he had a fall and on body and both hands. The patient is currently awake, alert. He is in restraint because of safety purposes for him and the sap fico architect. The patient is nonverbal, but occasionally talks and makes gestures. PAST MEDICAL HISTORY: Recurrent seizure, edema, multiple falls, Prader-Willi syndrome, psychosis, and depression. MEDICATIONS: See the list. ALLERGIES: NKA. FAMILY HISTORY: Noncontributory. SOCIAL HISTORY: Lives in a board and care where he has a sap fico architect all the time. PHYSICAL EXAMINATION: VITAL SIGNS: Blood pressure is 110/70, pulse 74, respirations 18, no fever. HEENT: Eyes are open. NECK: Supple. CHEST: Bilateral few crackles. CARDIOVASCULAR: Regular rhythm. No gallop. No murmur. ABDOMEN: Soft. Positive bowel sounds. Nontender. EXTREMITIES: CCE. NEUROLOGICAL: The patient has no focal deficit. GENITOURINARY: Deferred. LABORATORY DATA: Laboratory examinations are unremarkable. ASSESSMENT: 1. Recurrent seizure. 2. Prader-Willi syndrome. 3. Hypertension. 4. Psychosis. 5. History of seizure. 6. Obesity. 7. Hyperlipidemia. PLAN: We will admit on telemetry bed. Consider neuro consult and also consider psych consult. We will up the dose on Keppra. Continue current medication and up the dose of Keppra and add Ativan as needed. Discussed with sap fico architect and the ER physician. Raghavendra Sommers M.D. DR: RENAE JOB#: [id number] CC:
--- NOTE | 2019-06-15 03:45 | NUR ---
NURSE NOTES: Patient is asleep lying semi-renae's; resting comfortably. No signs of acute distress or pain noted at this time. Caregiver and 1:1 sitter at bedside.
[2019-06-15 03:51] VITALS: BP 109/73
--- NOTE | 2019-06-15 06:56 | NUR ---
NURSE NOTES: Called Dr. Sommers for restraints order since patient is highly agitated and continues trying to get out of bed. Received orders from PT/OT services, 1:1 sitter. Noted and carried out.
--- NOTE | 2019-06-15 07:32 | NUR ---
NURSE NOTES: Received report from Cindy OCHOA. Pt in bed with bilateral soft wrist restraints with a sitter and the patient is agitated and tried to get out of bed. Three nurses holding the patient's arms to calm him down but he is agitated. No SOB noted. 3 side rails up for safety. On room air. IV site in LAC 20g sl and patent and asymptomatic. Will page the MD for agitation. continue to plan of care.
--- NOTE | 2019-06-15 07:32 | NUR ---
HAND-OFF: Report given to GABRIELA Robbins. Patient is awake eating breakfast. Caregiver and 1:1 sitter at bedside. In stable condition.
--- NOTE | 2019-06-15 07:40 | NUR ---
NURSE NOTES: Side rails pads applied.
[2019-06-15 08:00] VITALS: BP 124/63
--- NOTE | 2019-06-15 08:55 | NUR ---
PT EVALUATION/DISCHARGE NOTE Patient seen for initial evaluation. Patient requires min assist for bed mobility and transfers. Patient ambulatory in the hallway with handhold assist, unsteady gait however no loss of balance. Patient does not follow commands, uncooperative, impulsive, sits down on the floor in the hallway. Patient appears to be at baseline level of function. Skilled inpatient PT intervention not warranted due to impaired cognitive status and inability to follow PT treatment plan. Patient discharged from PT, Min RN notified. Addendum: 06/15/19 at 1046 by OMID HAYS PT Amended: Links added.
[2019-06-15] MEDS ORDERED: ALBUTEROL 4 MG ORAL SCH (09:00)
[2019-06-15] MEDS: Topiramate 100mg tab ORAL SCH ×4 (09:00→17:44)
[2019-06-15] MEDS: Benazepril 10mg tab ORAL SCH ×2 (09:00→10:00)
[2019-06-15] MEDS: carBAMazepine 200mg tab ORAL SCH ×5 (09:00→21:00)
[2019-06-15] MEDS: Haloperidol 1mg tab ORAL SCH ×4 (09:00→17:45)
[2019-06-15] MEDS: Sertraline 100mg tab ORAL SCH ×2 (09:00→10:01)
[2019-06-15] MEDS ORDERED: Haloperidol 5mg/ml Inj IM SCH ×2 (10:30→11:05)
[2019-06-15] MEDS ORDERED: DiphenhydrAMINE 50mg/ml Inj IM SCH (10:30)
[2019-06-15] MEDS ORDERED: LORazepam Inj 2mg/ml 1ml IM SCH (10:30)
[2019-06-15 12:00] VITALS: BP 118/62
[2019-06-15] MEDS ORDERED: levETIRAcetam 1,000mg/NS100ml 100 ML IVPB SCH (13:00)
[2019-06-15] MEDS: levETIRAcetam 1,000mg/NS100ml 100 ML IVPB SCH ×2 (13:09→23:18)
--- NOTE | 2019-06-15 14:34 | NUR ---
CASE MANAGEMENT:REVIEW 49 YR OLD MALE FROM HOME WITH CAREGIVER TO ER CC: SEIZURE SI: RECURRENT SEIZURE 99.2 105 28 136/65 95% ON RA BUN+19 GLUCOSE+123 IS: IV ATIVAN IV BENADRYL CT HEAD : TO TELEMETRY PLAN: SEIZURE PRECAUTIONS NEURO CHECKS Q4HRS
--- NOTE | 2019-06-15 14:36 | NUR ---
NURSE NOTES:WOUND CARE NOTES:Pt presented on admission with full thickness pressure injury sacrococcygeal area (L)1.2cm x (W)0.5cm x (D)0.4cm. Base of wound beefy red with macerated borders. Small amt serosanguineous exudate noted. Non-blanching erythema periwound. Purple area with red tinged borders noted proximally on Sacrum. (L)0.8cm x (W)1cm.Pt very agitated and restless in bed and unable to confirm any tenderness when palpated. Scattered macular rash noted to lumbar area ,R and L buttocks and posterior aspects of both upper thighs. Both heels are firm and easily blanchable. Tx.Plan:Cleanse Sacral wound with Saline. Apply TheraHoney. Apply Moisture Barrier Paste periwound. Cover with Optifoam drsg. Change Daily and prn. Apply Moisture Barrier Paste to groin and scrotum with each incontinence care. Apply Cavilon Skin Barrier to Both heels. Cover each heel with Optifoam drsg. Change every 7 days and prn. APM/LAUREN Mattress overlay. Reposition at least every 2hours or as tolerated. Off-load heels with pillow.
[2019-06-15 16:00] VITALS: BP_SYST 121; BP_SYST 134; BP_DIAS 68
--- NOTE | 2019-06-15 16:50 | NUR ---
NURSE NOTES: Pt tried to get out of bed while two nurses holding the patient to keep him in the bed for safety. noted agitated and combative. Dr. Sommers paged and both bilateral soft restraints and sitter ordered. Ativan 2mg, Haldol 5mg q6 prn ordered and given.
[2019-06-15] MEDS ORDERED: LORazepam Inj 2mg/ml 1ml IV PRN (17:30)
[2019-06-15] MEDS ORDERED: Haloperidol 5mg/ml Inj IM PRN ×2 (17:30→17:45)
[2019-06-15] MEDS: DiphenhydrAMINE 50mg/ml Inj IM PRN (17:44)
[2019-06-15] MEDS: LORazepam Inj 2mg/ml 1ml IM PRN (17:44)
--- NOTE | 2019-06-15 18:00 | Consultation ---
DATE OF CONSULTATION: 06/15/2019 CONSULTING PHYSICIAN: Jorge Marquis M.D. CHIEF COMPLAINT: This 49-year-old white male with developmental delay and seizure disorder was admitted for a fall, possible seizure. The patient is apparently nonverbal. I was asked to see the patient because of the seizure. The patient was seen by Dr. Migel Cordova on 04/15/2015 and 04/14/2015 because of seizures. The patient is noted to be autistic at that time. He is agitated and aggressive. The patient had an EEG, which revealed diffuse slowing. The patient was then discharged on medication. He then came to this hospital yesterday because of multiple falls. He apparently has a diagnosis of Prader-Willi syndrome, psychosis, and depression as well. The patient is living at a board and halfway. He had a head CT scan of the brain yesterday, which revealed a left scalp contusion. The brain parenchyma appeared to be "normal for his age." The patient had a low Dilantin level. The patient had a Tegretol level of 10.7, which is within the normal range. He had positive benzodiazepines in urine. The CBC revealed that he is anemic with a normal platelet count and normal white count. The urinalysis was basically normal. Chemistries were basically normal except for elevated alkaline phosphatase, which had been elevated almost 4 years before as well, but not as high. His BUN was 19, but had a normal creatinine. Sodium was normal. Calcium was normal. Magnesium was not done. His PT and PTT were normal. The patient has been agitated and he was started on Keppra today 1000 mg. He is also on Tegretol 200 mg q.i.d., Benadryl, Haldol 0.5 mg given and then . The patient was placed on Keppra 1000 mg IV q.12 hours. He is also on Risperdal, sertraline, Topamax 200 mg t.i.d., Desyrel 150 mg at night. The patient had an EKG revealing left atrial enlargement, sinus tachycardia, and low voltage QRS. No chest x-ray was done. I was then asked to see the patient for seizures. PAST MEDICAL HISTORY: 1. Seizure disorder. See above 2. Prader-Willi syndrome with developmental delay. 3. Psychotic depression and/or schizophrenia. 4. GI bleeding with bright red stools in November of 2016, probably due to noninfective gastroenteritis and colitis. 5. Hyperlipidemia. ALLERGIES: No known allergies. HABITS: Alcohol and legal drugs, none. MEDICATIONS: He is on albuterol sulfate, clonazepam 2 mg tablets at bedtime, ferrous sulfate 325 mg, haloperidol 0.5 mg, melatonin 3 mg, sertraline 100 mg, simvastatin 20 mg tablets, topiramate 200 mg, trazodone 150 mg, zolpidem tartrate 10 mg. SOCIAL HISTORY: See above. FAMILY HISTORY: Unavailable. REVIEW OF SYSTEMS: Unavailable. PHYSICAL EXAMINATION: GENERAL: He is a well-developed, obese man, lying in bed, agitated. He is in restraints. VITAL SIGNS: The temperature is 97.4 degrees, blood pressure is 109/73, respiratory rate is 18, pulse 62, regular. HEENT: Difficult to evaluate. There are no obvious lesions. NECK: Difficult to evaluate because of agitation. Carotids could not be auscultated. LUNGS: Appeared to clear. CARDIOVASCULAR: Heart tones were distant. No murmurs or rubs appreciated. ABDOMEN: He has multiple scars in the abdomen. There do not appear to be any tenderness or masses, but it was very obese. EXTREMITIES: Appeared to be partially intact. NEUROLOGIC EXAMINATION: MENTAL STATUS: The patient was agitated, combative, yelling. No obvious spontaneous speech. This morning, he apparently was walking though. CRANIAL NERVE EXAMINATION: CRANIAL NERVE II: Could not be tested. CRANIAL NERVES III, IV, AND : Horizontal extraocular motility was full. Pupils were approximately 5 mm, round, and light reactive. CRANIAL NERVE V: Corneals appear to be intact bilaterally. CRANIAL NERVE VII: Facial strength appeared to be symmetrical bilaterally. He had a tremor at least left noted lasting 10 to 15 seconds. CRANIAL NERVES VIII THROUGH XII: Could not be tested. MUSCLE EXAMINATION: Muscle bulk appeared to be intact. Tone is probably normal to increased. Strength, he can move all 4 extremities. REFLEXES: Trace in the upper extremities, +1 at the knees, 0 at the ankles. Toes are downgoing. SENSORY EXAMINATION: Pain was intact bilaterally. IMPRESSION: This patient has diffuse encephalopathy related to his Prader-Willi syndrome, possibly postictal. We cannot tell whether or not he has continuing partial complex seizures at this time. The patient's Tegretol level was in the normal range. We will continue him on his Keppra. Eventually, he needs Topamax. Continue his other anticonvulsants. He really needs psychiatric evaluation for his agitation. B12 deficiency. Hepatic encephalopathy, Wernicke's encephalopathy seems to be unlikely. We are going to obtain an EEG in this patient stat to make sure he does not have electrographic seizures or partial complex status epilepticus. PLAN: 1. Continue his medications. 2. Obtain psychiatric consultation. 3. EEG. 4. Serial ammonia, B12, methylmalonic acid level. Thank you for this interesting case. Jorge Marquis MD DR: ONEL JOB#: [id number] CC:
--- NOTE | 2019-06-15 19:07 | NUR ---
OBTAINED REPORT FROM Radha COLBERT. PT RESTING IN BED WITH NO APPARENT DISTRESS. HE HAS BILATERAL SOFT WRIST RESTRAINTS ON BILATERALLY PER MD ORDER (PER SAFETY MEASURE). CONTINUE TO MONITOR.
--- NOTE | 2019-06-15 19:40 | NUR ---
HAND-OFF: Report given to Wendi OCHOA. Pt remians stable.
[2019-06-15 20:00] VITALS: BP 124/73
--- NOTE | 2019-06-15 20:45 | Progress Note ---
DATE: 06/15/2019 SUBJECTIVE: The patient is a 49-year-old male currently very agitated, psychotic and pulling out restraints. The patient is otherwise awake. Caretakers were at the bedside. PHYSICAL EXAMINATION: VITAL SIGNS: Stable. CHEST: Bilaterally clear. CARDIOVASCULAR: Regular rhythm. ABDOMEN: Soft. NEUROLOGICAL: The patient is agitated, moving in the bed all over the place. The patient also able to walk and but had multiple falls in two to three months and had episodes of seizure. Neurology consult was obtained. ASSESSMENT: 1. Recurrent seizure. 2. History of fall. 3. Prader-Willi syndrome. 4. Psychosis. PLAN: 1. Psych is on consult. 2. Neurology on consult who is ordering the EEG. 3. We will also order MRI of the brain and check the labs. 4. The patient ate okay, but he was trying to get out of the elevator this morning physical therapy, the patient is also very strong. I discussed with charge nurse. 5. We will give a dose Haldol, Ativan, and Benadryl. 6. Discussed with charge nurse and micrographics services supervisor. Raghavendra Sommers M.D. DR: Axel JOB#: [id number] CC:
--- NOTE | 2019-06-15 21:45 | Consultation ---
DATE OF CONSULTATION: 06/15/2019 CONSULTING PHYSICIAN: Abran Vigil M.D. HISTORY OF PRESENT ILLNESS: This is a 49-year-old male with a history of multiple medical issues who has been admitted to the hospital for medical stabilization. The patient has a history of seizure, multiple falls, severe agitation. The patient is yelling, screaming, severely agitated, not able to be engaged. The patient has a sitter at bedside. The patient is delusional. PAST PSYCHIATRIC HISTORY: Psychotic disorder, bipolar disorder. PAST MEDICAL HISTORY: Seizure, Prader-Willi syndrome, developmental disability, psychotic disorder, hyperlipidemia. ALLERGIES: No known drug allergies. SUBSTANCE USE HISTORY: There is no known history of illicit drug use or alcohol. MENTAL STATUS EXAMINATION: The patient is alert, confused. He has bilateral soft restraints. Mood is agitated. Affect is flat. Thought process is disorganized. Thought content, no suicidal or homicidal ideation. Cognition is impaired. Insight and judgment is impaired. ASSESSMENT: Dublin I Schizophrenia. Dublin II Deferred. Dublin III As above. Dublin IV Low. Dublin V 20. PLAN: 1. We will discontinue Haldol, discontinue Zoloft, discontinue trazodone, discontinue . We will start the patient on Seroquel 150 t.i.d. 2. Ativan p.r.n. 3. Remeron 50 mg at bedtime. 4. Provide the patient with reality orientation and supportive therapy. Abran Vigil M.D. DR: DARRELL JOB#: [id number] CC:
[2019-06-16] VITALS (8 sets, daily range): BP systolic 99–134; BP diastolic 60–75
[2019-06-16] MEDS: LORazepam Inj 2mg/ml 1ml IM PRN ×2 (06:46→15:07)
[2019-06-16] MEDS: DiphenhydrAMINE 50mg/ml Inj IM PRN ×2 (06:46→15:07)
--- NOTE | 2019-06-16 07:05 | NUR ---
GAVE FULL REPORT TO CHAD OCHOA. PT RESTING COMFORTABLY IN BED. NO APPARENT DISTRESS.
--- NOTE | 2019-06-16 07:59 | NUR ---
NURSE NOTES: Received report from GABRIELA Soria. Pt in bed, awake, autistic, restlessly moving in bed, sitters AZUL Paige and SHANTELLE Bolton at bedside attempting to reorient pt and calm pt, pt in bilateral soft wrist restraints, pulse 2+ bilateral, hands are warm to touch, good sensation noted, no apparent respiratory distress noted, pt is alert and responsive to name, unable to answer basic questions, bed in lowest position, call light within reach, sitters are attentive to pt's behavior and needs.
[2019-06-16] MEDS: carBAMazepine 200mg tab ORAL SCH ×4 (10:02→20:40)
[2019-06-16] MEDS: Topiramate 100mg tab ORAL SCH ×3 (10:03→17:44)
[2019-06-16] MEDS: Benazepril 10mg tab ORAL SCH (10:03)
--- NOTE | 2019-06-16 10:29 | NUR ---
HAND-OFF: Report given to GABRIELA Salas.
--- NOTE | 2019-06-16 10:32 | NUR ---
NURSE NOTES: Patient received from Juliet OCHOA. Patient brought to 4E in bed. Patient is currently awake and alert x 1. Patient is non verbal. Patient currently breathing on room air and does nota appear to be in respiratory distress at this time. Patient noted to have a 20 katiuska IV in left ac. Saline lock, patent, and in tact. Patient noted to have bilateral soft wrist restraints for patient safety. Order placed on June 15, 2019 at 1732. No need for a renewal at this time. Patients hands noted to be slightly swollen, this was already previously noted by previous nurse and thought to be due to patient aggressively moving around. Sitter at bedside for patient safety. Will continue to follow plan of care.
[2019-06-16] MEDS ORDERED: LORazepam Inj 2mg/ml 1ml IV PRN (10:33)
[2019-06-16] MEDS: levETIRAcetam 1,000mg/NS100ml 100 ML IVPB SCH ×2 (11:37→23:43)
--- NOTE | 2019-06-16 13:00 | NUR ---
NURSE NOTES: Patient clear for discharge. Patient is to receive EEG prior to discharge per orders of Doctor Benitez. Was confirmed by charge nurse Lonnie that EEG will be done today. Will move forward with discharge plan after EEG is obtained.
[2019-06-16] MEDS: Haloperidol 5mg/ml Inj IM PRN (15:07)
--- NOTE | 2019-06-16 19:21 | NUR ---
HAND-OFF: Report given to Anupama OCHOA.
--- NOTE | 2019-06-16 19:32 | NUR ---
NURSE NOTES: Received patient in bed, sitter at the bedside for observation, no acute distress noted, IV site is clean dry and intact. Seizure precautions are implemented, call light is within reach, bed is lowered, locked and alarm is on, will continue to monitor for comfort and safety.
--- NOTE | 2019-06-16 23:15 | Progress Note ---
DATE: 06/16/2019 SUBJECTIVE: The patient is a 49-year-old male, currently awake, more quiet, lying in bed. Sitter is on the bedside. PHYSICAL EXAMINATION: VITAL SIGNS: Stable. CHEST: Bilaterally clear. CARDIOVASCULAR: Regular rhythm. ABDOMEN: Soft. EXTREMITIES: CCE. NEUROLOGICAL: Awake, opens his eyes. Has restraints for his safety and nursing staff safety. ASSESSMENT AND PLAN: 1. Recurrent seizure. 2. Psychosis. 3. Depression. 4. Dementia. 5. Prader-Willi syndrome. 6. Hyperlipidemia. We will continue current medical treatment. Waiting for EEG as well as a neuro evaluation. Raghavendra Sommers M.D. DR: Simran JOB#: [id number] CC:
[2019-06-17 03:47] VITALS: BP 105/64
--- NOTE | 2019-06-17 07:10 | NUR ---
HAND-OFF: Report given to Carlos OCHOA.
--- NOTE | 2019-06-17 07:22 | NUR ---
NURSE NOTES: received report from GABRIELA Altman. patient in bed. alert. disoriented. limited verbal communication d/t impaired cognition. no respiratory distress noted. no facial grimacing. soft restraints on both wrists. sitter at the bedside. IV on RAC20 saline lock. skin intact. bed in the lowest position and locked. call light within reach. close monitor. alarm on. will continue to provide plan of care.
[2019-06-17 08:00] VITALS: BP 130/96
[2019-06-17] MEDS: DiphenhydrAMINE 50mg/ml Inj IM PRN ×2 (08:40→14:59)
[2019-06-17] MEDS: Haloperidol 5mg/ml Inj IM PRN ×2 (08:40→14:59)
[2019-06-17] MEDS: LORazepam Inj 2mg/ml 1ml IM PRN ×2 (08:41→14:59)
--- NOTE | 2019-06-17 08:50 | NUR ---
NURSE NOTES: patient screaming, agitated. Even though sitter and healthcare manager were trying to clam him down, patient kept trying to get out of bed and screaming, tying to kick nursing staffs. Given ativan 2mg IM, benadryl 50mg IM, and Haldol 5mg IM as ordered.
[2019-06-17 09:00] VITALS: BP 130/96
[2019-06-17] MEDS: carBAMazepine 200mg tab ORAL SCH ×2 (09:00→13:07)
[2019-06-17] MEDS: Topiramate 100mg tab ORAL SCH ×2 (09:00→13:07)
[2019-06-17] MEDS ORDERED: Benazepril 10mg tab ORAL SCH (09:00)
--- NOTE | 2019-06-17 10:40 | NUR ---
NURSE NOTES: notified Musa Bean and received order risperidal 1mg PO BID, Ativan 2mg PO q4hrs PRN. order noted and carried out.
[2019-06-17] MEDS ORDERED: LORazepam Inj 2mg/ml 1ml IV SCH (10:45)
--- NOTE | 2019-06-17 10:50 | NUR ---
NURSE NOTES: seen by Dr. Sommers. received order of ativan 2mg/1ml IV once for agitation. melatonin 3mg TID. pharmcy said that they don't carry melatonin.order noted and carried out.
[2019-06-17] MEDS ORDERED: LORazepam 1mg tab ORAL PRN (11:00)
--- NOTE | 2019-06-17 12:35 | NUR ---
NURSE NOTES: dc to boarding care since no seizure activity on EEG. notified Ms osborne at [facility]. arranged ambulance at 1500 by GABRIELA russo charge nurse. notified dr. mathis for new dc psychiatric medication for him.
[2019-06-17] MEDS: levETIRAcetam 1,000mg/NS100ml 100 ML IVPB SCH (13:08)
--- NOTE | 2019-06-17 15:00 | NUR ---
NURSE NOTES: patient agitated. kept moving in bed. trying to kick nursing staff during care. given ativan 2mg IM, Benadryl 50mg IM, Haldol 5mg IM as ordered.
--- NOTE | 2019-06-17 15:19 | NUR ---
NURSE NOTES: patient discharged to [facility] via ambulance [facility]. no respiratory distress noted. provided dc packet. checked and counted belongings with memory care director. obtained sign. removed ID and IV.
--- NOTE | 2019-06-17 19:00 | Electroencephalogram ---
ELECTROENCEPHALOGRAM REPORT DATE OF PROCEDURE: 06/16/2019 REQUESTING PHYSICIAN: Raghavendra Sommers M.D. HISTORY: This EEG was performed on a 49-year-old gentleman with a history of developmental delay, autism, psychosis, and seizure disorder. The purpose of this EEG was to evaluate the patient for the degree and type of cerebral dysfunction and to exclude ongoing ictal or interictal phenomena. TECHNICAL NOTE: This EEG was performed on a [employer] with electrodes placed on the scalp according to the international 10-20 system. [id number] and [id number] montages were used. The EEG was technically satisfactory and was performed in the awake and drowsy states. OBSERVATIONS: In the best awake state, the background activity consisted of 8-8.5 Hz posteriorly predominant, well-developed alpha waveforms, which attenuated on eye opening. Drowsiness was characterized by dissolution of the alpha rhythm and the appearance of slower frequencies in the 5-6 Hz theta range. No focal abnormalities or epileptiform discharges were seen. IMPRESSION: Normal awake and drowsy EEG. COMMENT: A normal EEG does not rule out a seizure disorder. Messi Carranza M.D., M.S.P.H. Clinical Neurophysiologist DR: Miguelina JOB#: [id number] MTDD
--- NOTE | 2019-06-17 21:00 | Progress Note ---
DATE: 06/17/2019 SUBJECTIVE: This is elderly male, currently very agitated and in the bed. Given the patient cannot be handled by two caretakers and who was at bedside the patient was given multiple medical psych treatments but is still very agitated and unresponsive on psychotics. OBJECTIVE: VITAL SIGNS: Blood pressure 130/96, pulse 86, and respirations 20s. CHEST: Bilaterally clear. CARDIOVASCULAR: Regular rhythm ABDOMEN: Soft. EXTREMITIES: CCE. NEUROLOGICAL: The patient talks, but does not make any sense. ASSESSMENT: 1. Recurrent seizure. 2. Psychotic. 3. Depression. 4. Prader-Willi syndrome. PLAN: We will currently continue current treatment. 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 We will continue cocktail, and psych is on consult. Neuro is on consult. The patient is going to have an EEG today. Raghavendra Sommers M.D. DR: Axel JOB#: [id number] CC:
--- NOTE | 2019-06-19 07:03 | Discharge Summary ---
Discharge Summary Discharge Summary _ DATE OF ADMISSION: 06/14/2019 DATE OF DISCHARGE: 06/17/2019 DISCHARGED BY: Dr. Sommers REASON FOR ADMISSION: 49 years old male with past medical history of seizure disorder, multiply falls , Prader -Willi syndrome, psychosis, depression, presented to emergency room complaining of recurrent seizures , status post head trauma. According to the caregiver, patient fell on his head 2 weeks ago and lost consciousness. Patient was evaluated at a different emergency room, and CT scan of the head was unremarkable. Patient however continued to experience recurrent seizures since the fall. Patient last seen neurologist about a week ago. MRI scan of the brain was normal. Patient had recurrent episodes of seizure prior to arrival to ED earlier that day . Patient subsequently presented accompanied by caregiver from assisted living. Upon evaluation patient was mildly tachycardic and tachypneic Pulse oximetry was stable on room air. CT scan of the head revealed no acute intracranial pathology. Laboratory work-up was unremarkable. Patient subsequently admitted for further management CONSULTANTS: neurologist Dr. Marquis psychiatrist [facility] COURSE: Patient admitted to telemetry bed initially. Seizure precaution maintained. Fall precaution maintained. Home medication resumed. Keppra was uptitrated. Ativan was on board as needed. Ammonia within normal limits , but vitamin B12 was low . Patient will start B 12 replacement as outpatient. Tegretol level was within normal limits. Keppra continued, dose uptitrated, Topamax added to existing anticonvulsant regimen. EEG was normal in awake and drowsy state. However , normal EEG does not rule out a seizure disorder. Per psychiatrist patient had schizophrenia. Psychiatric medication regimen was optimized. Reality orientation and supportive therapy provided. Blood pressure was managed with Lotensin. Statin continued. A No further seizure activity. GI prophylaxis provided. Patient clinically stabilized and was ready for discharge to assisted living. FINAL DIAGNOSES: Recurrent seizure B12 deficiency Encephalopathy Depression Schizophrenia DISCHARGE MEDICATIONS: See Medication Reconciliation list. DISCHARGE INSTRUCTIONS: Patient was discharged to assisted living. Follow-up with a primary care provider and neurologist in 1 week. I have been assigned to dictate discharge summary for this account. I was not involved in the patient's management. Keena Aguilera NP Jun 19, 2019 07:03
== END 2019-06-17 15:49 | disposition home or self-care (01) | DRG 101 ==
LOC: EMR 13:20 → 2E 14:35 → EDBEDREQ 16:46 → 4E 06-16 10:20
DX: G40.909 Epilepsy, unspecified, not intractable, without status epilepticus (principal); Q87.11 Prader-Willi syndrome; F32.3 Major depressive disorder, single episode, severe with psychotic features; G93.49 Other encephalopathy; I10 Essential (primary) hypertension; E78.5 Hyperlipidemia, unspecified; R29.6 Repeated falls; F79 Unspecified intellectual disabilities
CPT/HCPCS: 36415; 70450; 80053; 80156; 80299; 80307; 81003; 82140; 82607; 83921; 85025; 85610; 85730; 87081; 93005; 95819; 96374; 96375; 96376; 99285; J2405

== ENCOUNTER 2019-09-28 17:02 | Inpatient (IN) | payer MEDICARE, MEDICAID ==
[~2019-09-28] VITALS: Ht 162.6 cm; Wt 89.4 kg
[2019-09-28 17:10] VITALS: BP 117/75
--- NOTE | 2019-09-28 17:15 | NUR ---
ED Nurse Note: Patient came into ED in wheelchair by caregiver from board and care c/o generalized weakness since this AM. Patient has hx of autism, making incoherent sounds verbally. Patient does not follow commands, withdraws to pain. Unable to establish IV access, Asaf CAROLINA aware. 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
[2019-09-28] MEDS ORDERED: LORazepam Inj 2mg/ml 1ml IV ONE (17:30)
[2019-09-28] MEDS ORDERED: FERROUS SULFAT325 MG ORAL (17:34)
[2019-09-28] MEDS ORDERED: TOPIRAMATE100 MG ORAL (17:34)
[2019-09-28] MEDS ORDERED: VIMPAT200 MG PO (17:34)
[2019-09-28] MEDS ORDERED: ZOFRAN4 M3 ORAL (17:34)
[2019-09-28] MEDS ORDERED: FLUTICASONE PRO16 G1 NASAL (17:34)
[2019-09-28] MEDS ORDERED: FLOMAX0.4 MG ORAL (17:34)
[2019-09-28] MEDS ORDERED: RISPERDAL2 MG ORAL (17:34)
[2019-09-28] MEDS ORDERED: LEVETIRACETAM500 MG ORAL (17:34)
[2019-09-28] MEDS ORDERED: BENAZEPRIL HCL10 MG ORAL (17:34)
[2019-09-28] MEDS ORDERED: FUROSEMIDE40 MG ORAL (17:34)
[2019-09-28] MEDS ORDERED: MONTELUKAST SOD10 MG ORAL (17:34)
[2019-09-28] MEDS ORDERED: HALOPERIDOL0.5 MG ORAL (17:34)
[2019-09-28 17:48] LABS: BASOPHILS % (AUTO) 0.7 % (0.0-2.0); EOSINOPHILS % (AUTO) 0.6 % (0.0-3.0); HEMATOCRIT 37.2 % (42.0-52.0); HEMOGLOBIN 11.6 G/DL (14.2-18.0); MEAN CORPUSCULAR VOLUME 91 FL (80-99); MONOCYTES % (AUTO) 7.3 % (1.0-10.0); NEUTROPHILS % (AUTO) 71.4 % (45.0-75.0); PLATELET COUNT 201 K/UL (150-450); RED BLOOD COUNT 4.08 M/UL (4.70-6.10); RED CELL DISTRIBUTION WIDTH 13.6 % (11.6-14.8); WHITE BLOOD COUNT 7.8 K/UL (4.8-10.8)
[2019-09-28 17:59] LABS: ANION GAP 13 mmol/L (5-15); BLOOD UREA NITROGEN 10 mg/dL (7-18); CALCIUM 8.6 MG/DL (8.5-10.1); CARBON DIOXIDE 22 MMOL/L (21-32); CHLORIDE 105 MMOL/L (98-107); CREATININE 0.7 MG/DL (0.55-1.30); POTASSIUM 3.7 MMOL/L (3.5-5.1); SODIUM 140 MMOL/L (136-145)
[2019-09-28 18:05] LABS: ALANINE AMINOTRANSFERASE 22 U/L (12-78); ALBUMIN 3.4 G/DL (3.4-5.0); ALKALINE PHOSPHATASE 200 U/L (46-116); ASPARTATE AMINO TRANSFERASE 20 U/L (15-37); BILIRUBIN,TOTAL 0.2 MG/DL (0.2-1.0)
--- NOTE | 2019-09-28 18:14 | Diagnostic Imaging Report ---
EXAM: XR Chest, 1 View CLINICAL HISTORY: PAIN TECHNIQUE: Frontal view of the chest. COMPARISON: No relevant prior studies available. FINDINGS: Lungs: Unremarkable. No consolidation. Pleural space: Unremarkable. No pneumothorax. Heart/mediastinum: Mechanical device projecting over the left heart margin. Bones/joints: Unremarkable. IMPRESSION: No evidence of acute pulmonary disease
[2019-09-28] MEDS ORDERED: LORazepam Inj 2mg/ml 1ml IM ONE (18:15)
[2019-09-28] MEDS ORDERED: Haloperidol 5mg/ml Inj IM ONE (18:30)
[2019-09-28 18:43] LABS: APPEARANCE,URINE CLEAR; BILIRUBIN, URINE NEGATIVE (NEGATIVE); GLUCOSE, URINE (UA) NEGATIVE (NEGATIVE); KETONES,URINE NEGATIVE (NEGATIVE); LEUKOCYTE ESTERASE ,URINE NEGATIVE (NEGATIVE); NITRITE,URINE NEGATIVE (NEGATIVE); PH,URINE 6.5 (4.5-8.0); PROTEIN,URINE NEGATIVE (NEGATIVE); UROBILINOGEN,URINE 1 MG/DL (0.0-1.0)
--- NOTE | 2019-09-28 18:44 | Emergency Room Report ---
History of Present Illness General Chief Complaint: General Complaint Present Illness HPI 49-year-old male with history of seizure disorder as well as autism brought in by caregiver due to 1 day of weakness. Patient caregiver reported in triage that patient has been having a hard time to walk today. Denies chest pain shortness of breath. Patient appears to be agitated. Vitals are within normal limits. Not a good historian. No cough or congestion reported. Patient was not seizure disorder. Has not taken medication for symptom relief. Allergies: Coded Allergies: PHENYTOIN (Verified Allergy, Unknown, 06/14/19) COVID-19 Screening Contact w/high risk pt: No Recent Travel to affected area: No Experienced COVID-19 symptoms?: No COVID-19 symptoms experienced: Shortness of Breath COVID-19 Testing performed CLERK STENOGRAPHER: No Patient History Past Medical History: see triage record Past Surgical History: none Pertinent Family History: none Immunizations: UTD Reviewed Nursing Documentation: PMH: Agreed; PSxH: Agreed Nursing Documentation-PMH Hx Cardiac Problems: Yes Hx Hypertension: Yes Hx Asthma: Yes Hx Cancer: No Hx Gastrointestinal Problems: Yes - Gastrointestinal hemorrage Hx Neurological Problems: Yes - Mental retardation and autism Hx Seizures: Yes Hx Epilepsy: Yes Review of Systems All Other Systems: negative except mentioned in HPI Physical Exam Vital Signs Date Time Temp Pulse Resp B/P (MAP) Pulse Ox O2 Delivery O2 Flow Rate FiO2 09/28/19 17:05 97.7 80 19 117/75 (89) 09/28/19 17:10 100 Sp02 EP Interpretation: reviewed, normal General Appearance: no apparent distress, alert, GCS 15, non-toxic Head: normocephalic, atraumatic Eyes: bilateral eye normal inspection, bilateral eye PERRL ENT: hearing grossly normal, normal pharynx, no angioedema, normal voice Neck: full range of motion, supple/symm/no masses Respiratory: chest non-tender, lungs clear, normal breath sounds, speaking full sentences Cardiovascular #1: regular rate, rhythm, no edema Gastrointestinal: normal bowel sounds, non tender, soft, non-distended, no guarding, no rebound Rectal: deferred Genitourinary: no CVA tenderness Musculoskeletal: back normal Neurologic: alert, motor strength/tone normal, oriented x3, sensory intact, responsive, speech normal Psychiatric: judgement/insight normal, memory normal, mood/affect normal, no suicidal/homicidal ideation Reflexes: 3+ bicep (R), 3+ bicep (L), 3+ tricep (R), 3+ tricep (L), 3+ knee (R) , 3+ knee (L) Skin: no rash Lymphatic: no adenopathy Medical Decision Making PA Attestation All my diagnosis and treatment plans were reviewed ad discussed with my supervising physician Dr. Blount Diagnostic Impression: Primary Impression: Generalized weakness Additional Impression: Seizure disorder ER Course 49-year-old male with history of seizure disorder as well as autism brought in by caregiver due to 1 day of weakness. Patient caregiver reported in triage that patient has been having a hard time to walk today. Denies chest pain shortness of breath. Patient appears to be agitated. Vitals are within normal limits. Not a good historian. No cough or congestion reported. Patient was not seizure disorder. Has not taken medication for symptom relief. Did not have a seizure activity at ED Ddx considered but are not limited to: CVA, TIA, seizure disorder related weakness, generalized weakness Vital signs: are WNL, pt. is afebrile H&PE are most consistent with: Generalized weakness, seizure disorder ORDERS: Seizure order set ER intervention: Haldol, Ativan Patient was admitted with diagnosis of seizure disorder, generalized weakness to Dr. Andersen under supervision of : Mien pt stable at time of admission Chest X-Ray Diagnostic Results Chest X-Ray Diagnostic Results : Chest X-Ray Ordered: Yes # of Views/Limited/Complete: 1 View Indication: Other PA Xray: Interpretation reviewed, by supervising MD, and agrees with findings. Interpretation: no consolidation, no effusion, no pneumothorax Impression: No acute disease Electronically Signed by: Asaf Lees PA-C CT/MRI/US Diagnostic Results CT/MRI/US Diagnostic Results : Imaging Test Ordered: head CT no contrast Impression FINDINGS: Brain: No intracranial hemorrhage or mass effect. No clear acute large vessel territory infarct. Ventricles: Unremarkable. No ventriculomegaly. Bones/joints: Unremarkable. No acute fracture. Soft tissues: Multifocal scalp thickening/swelling. Sinuses: Unremarkable as visualized. No acute sinusitis. Mastoid air cells: Unremarkable as visualized. No mastoid effusion. IMPRESSION: No acute intracranial process. Last Vital Signs Date Time Temp Pulse Resp B/P (MAP) Pulse Ox O2 Delivery O2 Flow Rate FiO2 5/22/20 17:10 97.7 87 19 117/75 100 Disposition: ADMITTED INPATIENT Condition: Stable Asaf Ram September 28, 2019 18:44
[2019-09-28 18:45] LABS: COLOR,URINE YELLOW
--- NOTE | 2019-09-28 19:22 | NUR ---
HAND-OFF: Report given to Rina OCHOA.
--- NOTE | 2019-09-28 19:22 | NUR ---
ED Nurse Note: rEPORT RECEIVED FROM GABRIELA BANGURA. Pt in stable condition, resting in bed. pt on monitor. VSS no ss of distress noted.
[2019-09-28 19:30] VITALS: BP 125/73
--- NOTE | 2019-09-28 19:37 | NUR ---
ED Nurse Note: Pt taken to CT in stable condition. vss no ss of distress noted.
--- NOTE | 2019-09-28 19:50 | NUR ---
ED Nurse Note: Pt returned from CT in stable condition, vss no ss of distress noted.
--- NOTE | 2019-09-28 19:59 | Diagnostic Imaging Report ---
EXAM: CT Head Without Intravenous Contrast CLINICAL HISTORY: SZ TECHNIQUE: Axial computed tomography images of the head/brain without intravenous contrast. CTDI is 53.4 mGy and DLP is 1102.4 mGy-cm. One or more of the following dose reduction techniques were used: automated exposure control, adjustment of the mA and/or kV according to patient size, use of iterative reconstruction technique. COMPARISON: 06/14/19. FINDINGS: Brain: No intracranial hemorrhage or mass effect. No clear acute large vessel territory infarct. Ventricles: Unremarkable. No ventriculomegaly. Bones/joints: Unremarkable. No acute fracture. Soft tissues: Multifocal scalp thickening/swelling. Sinuses: Unremarkable as visualized. No acute sinusitis. Mastoid air cells: Unremarkable as visualized. No mastoid effusion. IMPRESSION: No acute intracranial process.
--- NOTE | 2019-09-28 20:29 | Consultation ---
History of Present Illness General Chief Complaint: General Complaint Present Illness HPI This is a 49 year old male with past medical history of with autism, seizure disorder and congestive heart failure brought to the hospital by the caregiver given concern for generalized weakness and lethargy. Patient unable to communicate and provide information. History is obtained from the Caregiver (Janey) on the phone. Per the caregiver patient lives in a care home where he receives 24-hour care. Recently he has been noticed to be lethargic and unable to get out of the bed. There is no report of any fever, chills, vomiting, melena or hematochezia. Per the caregiver, it is difficult to know as to whether patient is experiencing any discomfort given his poor baseline mental status. Of note, patient has also recently been noticed to develop abnormal behavior ( hitting his head agains the wall, throwing himself on the ground) which has never happened in the past and there is concern for possible seizure. Allergies: Coded Allergies: PHENYTOIN (Verified Allergy, Unknown, 06/14/19) Medication History Scheduled Albuterol Sulfate* (Albuterol Repetabs*), 4 MG ORAL TWICE A DAY, (Reported) Benazepril Hcl (Benazepril Hcl), 5 MG ORAL DAILY, (Reported) Benazepril Hcl* (Benazepril Hcl*), 5 MG ORAL DAILY, (Reported) Carbamazepine* (Carbamazepine*), 300 MG ORAL FOUR TIMES A DAY Clonazepam (Klonopin), 2 MG PO QHS, (Reported) Ferrous Sulfate (Iron), 325 MG PO DAILY, (Reported) Ferrous Sulfate* (Ferrous Sulfate*), 325 MG ORAL DAILY, (Reported) Fluticasone Propionate* (Fluticasone Propionate*), 1 SPRAY NASAL DAILY, ( Reported) Furosemide* (Lasix*), 40 MG ORAL DAILY, (Reported) Haloperidol* (Haldol*), 0.5 MG ORAL TID, (Reported) Haloperidol* (Haldol*), 5 MG ORAL EVERY 6 HOURS, (Reported) Levetiracetam* (Levetiracetam*), 1,000 MG ORAL TWICE A DAY, (Reported) Melatonin (Melatonin), 3 MG ORAL QHS, (Reported) Montelukast Sodium* (Montelukast Sodium*), 10 MG ORAL DAILY, (Reported) Omeprazole (Omeprazole), 40 MG ORAL DAILY, (Reported) Risperidone* (Risperdal*), 2 MG ORAL DAILY, (Reported) Sertraline Hcl* (Zoloft*), 100 MG ORAL DAILY, (Reported) Simvastatin (Zocor), 20 MG ORAL BEDTIME, (Reported) Tamsulosin HCl (Flomax), 0.4 MG ORAL DAILY, (Reported) Topiramate (Topiramate), 200 MG PO TID, (Reported) Topiramate* (Topamax*), 100 MG ORAL DAILY, (Reported) Trazodone* (Trazodone*), 150 MG ORAL BEDTIME, (Reported) Zolpidem Tartrate* (Ambien*), 10 MG ORAL BEDTIME, (Reported) Scheduled PRN Ondansetron* (Zofran*), 4 MG ORAL Q6H PRN for Nausea & Vomiting, (Reported) Miscellaneous Medications Lacosamide (Vimpat), 200 MG PO, (Reported) Patient History Healthcare decision maker Resuscitation status Advanced Directive on File Physical Exam General Appearance: no apparent distress, lethargic Lines, tubes and drains: peripheral HEENT: normocephalic Neck: non-tender, normal alignment Respiratory/Chest: chest wall non-tender, lungs clear Abdomen: non tender Extremities: normal range of motion, non-tender Last 24 Hour Vital Signs Date Time Temp Pulse Resp B/P (MAP) Pulse Ox O2 Delivery O2 Flow Rate FiO2 09/28/19 17:10 97.7 87 19 117/75 100 09/28/19 17:10 80 19 09/28/19 17:05 97.7 80 19 117/75 (89) Laboratory Tests Test 09/28/19 17:40 09/28/19 18:05 White Blood Count 7.8 K/UL (4.8-10.8) Red Blood Count 4.08 M/UL (4.70-6.10) L Hemoglobin 11.6 G/DL (14.2-18.0) L Hematocrit 37.2 % (42.0-52.0) L Mean Corpuscular Volume 91 FL (80-99) Mean Corpuscular Hemoglobin 28.5 PG (27.0-31.0) Mean Corpuscular Hemoglobin Concent 31.2 G/DL (32.0-36.0) L Red Cell Distribution Width 13.6 % (11.6-14.8) Platelet Count 201 K/UL (150-450) Mean Platelet Volume 6.2 FL (6.5-10.1) L Neutrophils (%) (Auto) 71.4 % (45.0-75.0) Lymphocytes (%) (Auto) 20.0 % (20.0-45.0) Monocytes (%) (Auto) 7.3 % (1.0-10.0) Eosinophils (%) (Auto) 0.6 % (0.0-3.0) Basophils (%) (Auto) 0.7 % (0.0-2.0) Sodium Level 140 MMOL/L (136-145) Potassium Level 3.7 MMOL/L (3.5-5.1) Chloride Level 105 MMOL/L (98-107) Carbon Dioxide Level 22 MMOL/L (21-32) Anion Gap 13 mmol/L (5-15) Blood Urea Nitrogen 10 mg/dL (7-18) Creatinine 0.7 MG/DL (0.55-1.30) Estimat Glomerular Filtration Rate > 60 mL/min (>60) Glucose Level 106 MG/DL (74-106) Calcium Level 8.6 MG/DL (8.5-10.1) Total Bilirubin 0.2 MG/DL (0.2-1.0) Aspartate Amino Transf (AST/SGOT) 20 U/L (15-37) Alanine Aminotransferase (ALT/SGPT) 22 U/L (12-78) Alkaline Phosphatase 200 U/L (46-116) H Troponin I 0.002 ng/mL (0.000-0.056) Total Protein 6.7 G/DL (6.4-8.2) Albumin 3.4 G/DL (3.4-5.0) Globulin 3.3 g/dL Albumin/Globulin Ratio 1.0 (1.0-2.7) Valproic Acid (Depakene) Level < 3 MCG/ML (50-100) L Serum Alcohol < 3 mg/dL Urine Color Yellow Urine Appearance Clear Urine pH 6.5 (4.5-8.0) Urine Specific [place] 1.015 (1.005-1.035) Urine Protein Negative (NEGATIVE) Urine Glucose (UA) Negative (NEGATIVE) Urine Ketones Negative (NEGATIVE) Urine Blood Negative (NEGATIVE) Urine Nitrite Negative (NEGATIVE) Urine Bilirubin Negative (NEGATIVE) Urine Urobilinogen 1 MG/DL (0.0-1.0) H Urine Leukocyte Esterase Negative (NEGATIVE) Urine Opiates Screen Negative (NEGATIVE) Urine Barbiturates Screen Negative (NEGATIVE) Phencyclidine (PCP) Screen Negative (NEGATIVE) Urine Amphetamines Screen Negative (NEGATIVE) Urine Benzodiazepines Screen Positive (NEGATIVE) H Urine Cocaine Screen Negative (NEGATIVE) Urine Marijuana (THC) Screen Negative (NEGATIVE) Height (Feet): 5 Height (Inches): 4.00 Weight (Pounds): 232 Assessment/Plan Diagnosis [place]: #Generalized weakness and lethargy #hypokalemia # autism #seizure disorder # history of congestive heart failure #HTN #HLD #BPH - admit inpatient - resume antiepileptics - monitor electrolytes - continue benazopril - continue atorvastatin - continue flomax - continue montelukast - monitor bmp, mag and phos daily Andrea Andersen M.D. September 28, 2019 20:29
--- NOTE | 2019-09-28 21:30 | NUR ---
ED Nurse Note: pt resting in bed, vss no ss of distress noted.
[2019-09-28 21:45] VITALS: BP 122/70
--- NOTE | 2019-09-28 21:54 | History and Physical ---
History of Present Illness General Date patient seen: September 28, 2019 Reason for Hospitalization: Generalized weaknessSeizure disorderCongestive heart failure Present Illness HPI Patient is a 49 YO M with autism, seizure disorder and congestive heart failure brought to the hospital by the caregiver given concern for generalized weakness and lethargy. Patient unable to communicate and provide information. History is obtained from the Caregiver (Janey) on the phone. Per the caregiver patient lives in a alf where he receives 24-hour care. Recently he has been noticed to be lethargic and unable to get out of the bed. There is no report of any fever, chills, vomiting, melena or hematochezia. Per the caregiver, it is difficult to know as to whether patient is experiencing any discomfort given his poor baseline mental status. Of note, patient has also recently been noticed to develop abnormal behavior ( hitting his head agains the wall, throwing himself on the ground) which has never happened in the past and there is concern for possible seizure. Per the caregiver, 6 months ago, patient was diagnosed with congestive heart failure at an outside facility. Also, patient's LE's have been noticed to be more swollen than usual. On arrival to the ED, patient's vital were unremarkable. The CBC showed slight anemia: 11.6. The UA, CTH an CXR results were unrevealing. Patient is going to be admitted for further observation and medical management. Allergies: Coded Allergies: PHENYTOIN (Verified Allergy, Unknown, 06/14/19) COVID-19 Screening Contact w/high risk pt: No Recent Travel to affected area: No Experienced COVID-19 symptoms?: No COVID-19 symptoms experienced: Shortness of Breath Medication History Scheduled Albuterol Sulfate* (Albuterol Repetabs*), 4 MG ORAL TWICE A DAY, (Reported) Benazepril Hcl (Benazepril Hcl), 5 MG ORAL DAILY, (Reported) Benazepril Hcl* (Benazepril Hcl*), 5 MG ORAL DAILY, (Reported) Carbamazepine* (Carbamazepine*), 300 MG ORAL FOUR TIMES A DAY Clonazepam (Klonopin), 2 MG PO QHS, (Reported) Ferrous Sulfate (Iron), 325 MG PO DAILY, (Reported) Ferrous Sulfate* (Ferrous Sulfate*), 325 MG ORAL DAILY, (Reported) Fluticasone Propionate* (Fluticasone Propionate*), 1 SPRAY NASAL DAILY, ( Reported) Furosemide* (Lasix*), 40 MG ORAL DAILY, (Reported) Haloperidol* (Haldol*), 0.5 MG ORAL TID, (Reported) Haloperidol* (Haldol*), 5 MG ORAL EVERY 6 HOURS, (Reported) Levetiracetam* (Levetiracetam*), 1,000 MG ORAL TWICE A DAY, (Reported) Melatonin (Melatonin), 3 MG ORAL QHS, (Reported) Montelukast Sodium* (Montelukast Sodium*), 10 MG ORAL DAILY, (Reported) Omeprazole (Omeprazole), 40 MG ORAL DAILY, (Reported) Risperidone* (Risperdal*), 2 MG ORAL DAILY, (Reported) Sertraline Hcl* (Zoloft*), 100 MG ORAL DAILY, (Reported) Simvastatin (Zocor), 20 MG ORAL BEDTIME, (Reported) Tamsulosin HCl (Flomax), 0.4 MG ORAL DAILY, (Reported) Topiramate (Topiramate), 200 MG PO TID, (Reported) Topiramate* (Topamax*), 100 MG ORAL DAILY, (Reported) Trazodone* (Trazodone*), 150 MG ORAL BEDTIME, (Reported) Zolpidem Tartrate* (Ambien*), 10 MG ORAL BEDTIME, (Reported) Scheduled PRN Ondansetron* (Zofran*), 4 MG ORAL Q6H PRN for Nausea & Vomiting, (Reported) Miscellaneous Medications Lacosamide (Vimpat), 200 MG PO, (Reported) Patient History Healthcare decision maker Resuscitation status Advanced Directive on File Review of Systems ROS Narrative unable to obtain due to patient's mental status. Physical Exam General Appearance: obese, other - non-verbal Lines, tubes and drains: peripheral HEENT: normocephalic Neck: non-tender Respiratory/Chest: chest wall non-tender, no respiratory distress, no accessory muscle use Cardiovascular/Chest: normal peripheral pulses, normal rate, regular rhythm Abdomen: soft, no mass Extremities: normal range of motion, other - spontaneously moving extremities. Skin Exam: normal pigmentation Neurologic: disoriented, other - pt baseline [id number] to follow commands. Last 24 Hour Vital Signs Date Time Temp Pulse Resp B/P (MAP) Pulse Ox O2 Delivery O2 Flow Rate FiO2 09/28/19 17:10 97.7 87 19 117/75 100 09/28/19 17:10 80 19 09/28/19 17:05 97.7 80 19 117/75 (89) Laboratory Tests Test 09/28/19 17:40 09/28/19 18:05 White Blood Count 7.8 K/UL (4.8-10.8) Red Blood Count 4.08 M/UL (4.70-6.10) L Hemoglobin 11.6 G/DL (14.2-18.0) L Hematocrit 37.2 % (42.0-52.0) L Mean Corpuscular Volume 91 FL (80-99) Mean Corpuscular Hemoglobin 28.5 PG (27.0-31.0) Mean Corpuscular Hemoglobin Concent 31.2 G/DL (32.0-36.0) L Red Cell Distribution Width 13.6 % (11.6-14.8) Platelet Count 201 K/UL (150-450) Mean Platelet Volume 6.2 FL (6.5-10.1) L Neutrophils (%) (Auto) 71.4 % (45.0-75.0) Lymphocytes (%) (Auto) 20.0 % (20.0-45.0) Monocytes (%) (Auto) 7.3 % (1.0-10.0) Eosinophils (%) (Auto) 0.6 % (0.0-3.0) Basophils (%) (Auto) 0.7 % (0.0-2.0) Sodium Level 140 MMOL/L (136-145) Potassium Level 3.7 MMOL/L (3.5-5.1) Chloride Level 105 MMOL/L (98-107) Carbon Dioxide Level 22 MMOL/L (21-32) Anion Gap 13 mmol/L (5-15) Blood Urea Nitrogen 10 mg/dL (7-18) Creatinine 0.7 MG/DL (0.55-1.30) Estimat Glomerular Filtration Rate > 60 mL/min (>60) Glucose Level 106 MG/DL (74-106) Calcium Level 8.6 MG/DL (8.5-10.1) Total Bilirubin 0.2 MG/DL (0.2-1.0) Aspartate Amino Transf (AST/SGOT) 20 U/L (15-37) Alanine Aminotransferase (ALT/SGPT) 22 U/L (12-78) Alkaline Phosphatase 200 U/L (46-116) H Troponin I 0.002 ng/mL (0.000-0.056) Total Protein 6.7 G/DL (6.4-8.2) Albumin 3.4 G/DL (3.4-5.0) Globulin 3.3 g/dL Albumin/Globulin Ratio 1.0 (1.0-2.7) Valproic Acid (Depakene) Level < 3 MCG/ML (50-100) L Serum Alcohol < 3 mg/dL Urine Color Yellow Urine Appearance Clear Urine pH 6.5 (4.5-8.0) Urine Specific [place] 1.015 (1.005-1.035) Urine Protein Negative (NEGATIVE) Urine Glucose (UA) Negative (NEGATIVE) Urine Ketones Negative (NEGATIVE) Urine Blood Negative (NEGATIVE) Urine Nitrite Negative (NEGATIVE) Urine Bilirubin Negative (NEGATIVE) Urine Urobilinogen 1 MG/DL (0.0-1.0) H Urine Leukocyte Esterase Negative (NEGATIVE) Urine Opiates Screen Negative (NEGATIVE) Urine Barbiturates Screen Negative (NEGATIVE) Phencyclidine (PCP) Screen Negative (NEGATIVE) Urine Amphetamines Screen Negative (NEGATIVE) Urine Benzodiazepines Screen Positive (NEGATIVE) H Urine Cocaine Screen Negative (NEGATIVE) Urine Marijuana (THC) Screen Negative (NEGATIVE) Height (Feet): 5 Height (Inches): 4.00 Weight (Pounds): 232 Assessment/Plan Assessment/Plan: 49 YO M with Autism, Seizure disorder and congestive heart failure presenting with 2 day onset of generalized weakness, lethargy, and worsening of lower extremity swelling. Patient is admitted for further observation and medical management. #Generalized Weakness #Failure to thrive -Lab values and imaging results unrevealing. -Per caregiver, hx of CHF which could explain patient's fatigue/weakness. Will perform cardiac work up. -Polypharmacy is another etiology of the patient's generalized weakness. -PT/OT -Nutrition consult -Supportive care. #Congestive Heart Failure: -Diagnosed 6 months ago at OSH per the caregiver. -Euvolemic on physical examination - Not in CHF exacerbation. -Will order BNP and serum troponin along with A.M labs. -Will resume home Lasix 40 MG PO QD. -2D TTE ordered to evaluate for LVEF, cardiac wall and valvular function. -Cardiology consult in the A.M. #Hyperlipidemia: -Resume home Zocor 20 MG PO QD. #Essential hypertension: -Resume home Benazepril 5 QD. -Resume home Lasix 40 MG PO QD. #Seizure Disorder: -Resume home AED. -Will check serum Tegretol and Topamax levels. -Neurology consult appreciated. #Autism: -[place] the patient. -Keep the room silent. -Supportive care. #Asthma: -Continue with home Montelukast and PRN breathing treatment #BPH: -Resume home Tamsulosin. #Agitation/Delirium #Anxiety Disorder #Depressive Disorder #Insomnia: --Resume home Klonopin 2MG PO QHS. -Resume home Sertraline 100 MG PO QD. -Resume home Haldol 5 MG PO Q6HR and 0.5 MG PO TID. -Resume home Trazodone 150 MG PO QD. -Will obtain psychiatry consult. F: PO E: Monitor and replete PRN. N: Cardiac Diet I spent~72~minutes on this patient's case, and 35~minutes was dedicated to counseling and/or care coordination. Case discussed extensively with the caregiver (Saeed). Case discussed with the RN. I spent an additional 32~min on chart review including prior consult notes, progress notes, procedures, imaging, labs hemodynamics and clinical documentation. Bart Limon M.D. September 28, 2019 21:54
--- NOTE | 2019-09-28 22:20 | NUR ---
ED Nurse Note: Report given to GABRIELA Hill on telemetry unit.
--- NOTE | 2019-09-28 22:35 | NUR ---
ED Nurse Note: ERDM at bedside for US guided IV insertion.
--- NOTE | 2019-09-28 22:55 | NUR ---
ER DISCHARGE NOTE: Patient is cleared to be discharged to telemetry unit per ERMD, pt is aox4, 100% on room air, with stable vital signs. pt was able to verbalize understanding. pt is bedbound due to generalized weakness; pt normal is ambulatory with steady gait. pt took all belongings. Pt was taken upstairs to telemetry unit with GENERAL PRACTITIONER and RN.
--- NOTE | 2019-09-28 23:20 | NUR ---
NURSE NOTES: Patient received to telemetry unit, report received from GABRIELA Flynn. Pt is alert but agitated, alert x1. pt is unable to verbalize needs and has incomprehensible speech. Pt VS are stable at this time. Pt is room air. Pt is bedbound due to generalized weakness. Per report patient has had weakness x1 day and used to be ambulatory (normal = ambulatory). Pt has active range of motion and is very restless. Bed has seizure precautions with padded side rails and suction set up at bedside. All belongings checked at bedside, clothing and one pair of shoes. Pt room is close to the nursing station room 201-2. Calling [facility] for admitting orders. Pt is awake, in bed, bilateral soft non behavioral restraints on, skin intact throughout. Bed is locked, in lowest position, bed alarm on zone 2, side rails x3.
[2019-09-29] VITALS: BP 139/78
--- NOTE | 2019-09-29 | NUR ---
NURSE NOTES: Received orders from Dr Limon, initiated bilateral soft wrist restraints, non violent, nonbehavioral. Pt was trying to climb out of bed and remove the IV. Pt is at risk for seizures and the IV was difficult to obtain in ED. Pt has IV ativan in the event of seizures, agitation/anxiety. Pt is being monitored closely.
[2019-09-29] MEDS ORDERED: LORazepam Inj 2mg/ml 1ml IV PRN ×2 (00:15)
[2019-09-29 04:00] VITALS: BP 115/47
--- NOTE | 2019-09-29 07:56 | NUR ---
HAND-OFF: Report given to GABRIELA Andrews
[2019-09-29 08:00] VITALS: BP 135/91
[2019-09-29] MEDS ORDERED: TraZODone 50mg tab ORAL PRN (08:00)
--- NOTE | 2019-09-29 08:00 | NUR ---
NURSE NOTES: Nurse report given by GABRIELA Chavis. Patient was disoriented, distress, agitated, confused, noncompliant and tried to climb out of bed multiples times, regardless both nurses, other assistants and Dr. Hunter tried to get him back to bed multiple times. Medication reconciliation confirmed with Dr. Long at bedside and called Dr. Vigil as psych consult. Otherwise, patient's not at risk for injury, patient's back in bed, low and locked, call light within reach, side rails x 4, bed alarm is armed. Bilateral wrist restraints applied, no lacerations noted, pulses present, palpable equally on both wrists. Skin assessment performed along with wound nurse, Eyalana[place], buttocks redness noted, unblanchable, triad cream and optifoam applied. IV is saline locked, flushed well, patent and asymptomatic. Will continue to monitor closely. ,
[2019-09-29] MEDS: Haloperidol 5mg/ml Inj IM PRN (08:26)
[2019-09-29] MEDS: Montelukast 10mg tablet ORAL SCH (08:34)
[2019-09-29] MEDS: Benazepril 10mg tab ORAL SCH (08:34)
[2019-09-29] MEDS: Sertraline 100mg tab ORAL SCH (08:34)
[2019-09-29] MEDS: Tamsulosin 0.4mg cap ORAL SCH (08:35)
[2019-09-29] MEDS: Topiramate 100mg tab ORAL SCH (08:35)
[2019-09-29] MEDS: carBAMazepine 200mg tab ORAL SCH ×5 (08:35→21:55)
[2019-09-29] MEDS: Heparin 5000 units/ml inj SUBQ SCH ×2 (08:41→21:55)
[2019-09-29] MEDS: Flonase Nasal Inhaler 16gm NASAL SCH (08:41)
[2019-09-29 08:49] LABS: BASOPHILS % (AUTO) 0.7 % (0.0-2.0); EOSINOPHILS % (AUTO) 1.9 % (0.0-3.0); LYMPHOCYTES % (AUTO) 21.6 % (20.0-45.0); MEAN CORPUSCULAR VOLUME 85 FL (80-99); MONOCYTES % (AUTO) 7.5 % (1.0-10.0); NEUTROPHILS % (AUTO) 68.4 % (45.0-75.0); PLATELET COUNT 182 K/UL (150-450); RED BLOOD COUNT 4.11 M/UL (4.70-6.10); RED CELL DISTRIBUTION WIDTH 12.3 % (11.6-14.8); WHITE BLOOD COUNT 4.8 K/UL (4.8-10.8)
[2019-09-29] MEDS ORDERED: Benazepril 10mg tab ORAL SCH (09:00)
[2019-09-29] MEDS ORDERED: Sertraline 100mg tab ORAL SCH (09:00)
[2019-09-29 09:37] LABS: ANION GAP 11 mmol/L (5-15); BLOOD UREA NITROGEN 12 mg/dL (7-18); CALCIUM 8.5 MG/DL (8.5-10.1); CARBON DIOXIDE 24 MMOL/L (21-32); CHLORIDE 102 MMOL/L (98-107); CREATININE 0.6 MG/DL (0.55-1.30); POTASSIUM 3.4 MMOL/L (3.5-5.1); SODIUM 137 MMOL/L (136-145)
--- NOTE | 2019-09-29 09:45 | NUR ---
pt behavior still uncontrolled, agitated and confused, constant movement in bed, dr mathis made aware and new order received.
[2019-09-29] MEDS: LORazepam Inj 2mg/ml 1ml IM PRN (10:23)
--- NOTE | 2019-09-29 10:40 | General Progress Note ---
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 Patient caregiver reported in triage that patient has been having a hard time to walk today. Denies chest pain shortness of breath. Patient appears to be agitated. Vitals are within normal limits. Not a good historian. No cough or congestion reported. Patient was not seizure disorder. Has not taken medication for symptom relief. Subjective Date patient seen: September 29, 2019 Time patient seen: 12:00 ROS Limited/Unobtainable: Yes Allergies: Coded Allergies: PHENYTOIN (Verified Allergy, Unknown, 06/14/19) Objective Last 24 Hour Vital Signs Date Time Temp Pulse Resp B/P (MAP) Pulse Ox O2 Delivery O2 Flow Rate FiO2 09/29/19 08:34 135/91 09/29/19 08:00 97.7 83 21 135/91 (106) 95 09/29/19 04:00 90 09/29/19 04:00 97.9 90 19 115/47 (69) 95 09/29/19 00:00 88 09/29/19 00:00 97.5 81 19 139/78 (98) 98 09/28/19 23:36 Room Air 09/28/19 23:12 90 09/28/19 22:55 97.7 87 18 122/70 100 Room Air 09/28/19 21:45 97.7 87 18 122/70 100 Room Air 09/28/19 19:30 97.7 84 18 125/73 100 Room Air 09/28/19 17:10 97.7 87 19 117/75 100 09/28/19 17:10 80 19 09/28/19 17:05 97.7 80 19 117/75 (89) Intake and Output 09/28/19 09/29/19 19:00 07:00 Intake Total 0 ml Balance 0 ml Intake Oral 0 ml Laboratory Tests 09/28/19 17:40: White Blood Count 7.8, Red Blood Count 4.08L, Hemoglobin 11.6L, Hematocrit 37.2L , Mean Corpuscular Volume 91, Mean Corpuscular Hemoglobin 28.5, Mean Corpuscular Hemoglobin Concent 31.2L, Red Cell Distribution Width 13.6, Platelet Count 201, Mean Platelet Volume 6.2L, Neutrophils (%) (Auto) 71.4, Lymphocytes (%) (Auto) 20.0, Monocytes (%) (Auto) 7.3, Eosinophils (%) (Auto) 0.6, Basophils (%) (Auto) 0.7, Sodium Level 140, Potassium Level 3.7, Chloride Level 105, Carbon Dioxide Level 22, Anion Gap 13, Blood Urea Nitrogen 10, Creatinine 0.7, Estimat Glomerular Filtration Rate > 60, Glucose Level 106, Calcium Level 8.6, Total Bilirubin 0.2, Aspartate Amino Transf (AST/SGOT) 20, Alanine Aminotransferase (ALT/SGPT) 22, Alkaline Phosphatase 200H, Troponin I 0.002, Total Protein 6.7, Albumin 3.4, Globulin 3.3, Albumin/Globulin Ratio 1.0 , Valproic Acid (Depakene) Level < 3L, Serum Alcohol < 3 09/28/19 18:05: Urine Color Yellow, Urine Appearance Clear, Urine pH 6.5, Urine Specific [place] 1.015, Urine Protein Negative, Urine Glucose (UA) Negative, Urine Ketones Negative, Urine Blood Negative, Urine Nitrite Negative, Urine Bilirubin Negative, Urine Urobilinogen 1H, Urine Leukocyte Esterase Negative, Urine Opiates Screen Negative, Urine Barbiturates Screen Negative, Phencyclidine (PCP ) Screen Negative, Urine Amphetamines Screen Negative, Urine Benzodiazepines Screen PositiveH, Urine Cocaine Screen Negative, Urine Marijuana (THC) Screen Negative 09/29/19 06:30: White Blood Count 4.8, Red Blood Count 4.11L, Hemoglobin 12.0L, Hematocrit 35.0L , Mean Corpuscular Volume 85, Mean Corpuscular Hemoglobin 29.2, Mean Corpuscular Hemoglobin Concent 34.4, Red Cell Distribution Width 12.3, Platelet Count 182, Mean Platelet Volume 4.6L, Neutrophils (%) (Auto) 68.4, Lymphocytes ( %) (Auto) 21.6, Monocytes (%) (Auto) 7.5, Eosinophils (%) (Auto) 1.9, Basophils (%) (Auto) 0.7, Sodium Level 137, Potassium Level 3.4L, Chloride Level 102, Carbon Dioxide Level 24, Anion Gap 11, Blood Urea Nitrogen 12, Creatinine 0.6, Estimat Glomerular Filtration Rate > 60, Glucose Level 85, Calcium Level 8.5, Troponin I 0.000, Pro-B-Type Natriuretic Peptide 160H, Carbamazepine (Tegretol) Level 4.7 Height (Feet): 5 Height (Inches): 4.00 Weight (Pounds): 197 General Appearance: moderate distress EENT: PERRL/EOMI Cardiovascular: normal rate, regular rhythm Respiratory/Chest: lungs clear, normal breath sounds, no respiratory distress Abdomen: non tender, soft Extremities: other - contractures, muscle wasting Neurologic: other - non focal neuro exam, Skin: warm/dry Zahra Quintero D.O. September 29, 2019 10:40
--- NOTE | 2019-09-29 10:59 | NUR ---
CASE MANAGEMENT:INITIAL REVIEW 49YR OLD MALE FROM [facility] WITH CAREGIVER CC: SOB WITH DIFF BREATHING \DIFFICULTY AMBULATING ; LETHARGIC AGGITATED GENERAL COMPLAINT ABNORMAL BEHAVIOR:Hitting his head agains the wall, throwing himself on the ground PMH: AUTISM AND MILD INTELLECTUAL DISORDER; SEIZURE DISORDER; CHF SI: GENERALIZED WEAKNESS . SEIZURE DISORDER .NORMAL SINUS RHYTHM 97.7 80 19 117/75 100% ON RA ALKP 200 VALPORIC ACID <3 L + BENZO H IS: IM ATIVAN 1MG X1 IM HALDOL 5MG X1 CHEST X-RAY- No evidence of acute pulmonary disease CT HEAD-No acute intracranial process. \: 2E TELE UNIT DCP: BOARD & CARE WHEN STABLE PLAN: R/O CVA; TIA MRSA SCREEN VRE SCREEN MONITOR BEHAVIOR NON-VIOLENT RESTRAINTS Q24HR MONITORING SEIZURE PRECAUTION 2D ECHO STABILIZED ANTICONVULSIVE MEDICATION AND LEVEL MONITOR CARDIO CONSULT PENDING
[2019-09-29 12:00] VITALS: BP 125/69
--- NOTE | 2019-09-29 12:32 | Nephrology Progress Note ---
Assessment/Plan Plan #Generalized weakness and lethargy #hypokalemia # autism #seizure disorder # history of congestive heart failure #HTN #HLD #BPH - replete K - resume antiepileptics - monitor electrolytes - continue benazopril - continue atorvastatin - continue flomax - continue montelukast - monitor bmp, mag and phos daily Subjective ROS Limited/Unobtainable: Yes Subjective K low repleted in restraints Objective Objective Last 24 Hour Vital Signs Date Time Temp Pulse Resp B/P (MAP) Pulse Ox O2 Delivery O2 Flow Rate FiO2 09/29/19 12:00 97.3 80 18 125/69 (87) 94 09/29/19 09:00 Room Air 09/29/19 08:34 135/91 09/29/19 08:00 104 09/29/19 08:00 97.7 83 21 135/91 (106) 95 09/29/19 04:00 90 09/29/19 04:00 97.9 90 19 115/47 (69) 95 09/29/19 00:00 88 09/29/19 00:00 97.5 81 19 139/78 (98) 98 09/28/19 23:36 Room Air 09/28/19 23:12 90 09/28/19 22:55 97.7 87 18 122/70 100 Room Air 09/28/19 21:45 97.7 87 18 122/70 100 Room Air 09/28/19 19:30 97.7 84 18 125/73 100 Room Air 09/28/19 17:10 97.7 87 19 117/75 100 09/28/19 17:10 80 19 09/28/19 17:05 97.7 80 19 117/75 (89) Intake and Output 09/28/19 09/29/19 19:00 07:00 Intake Total 0 ml Balance 0 ml Intake Oral 0 ml Laboratory Tests 09/28/19 17:40: White Blood Count 7.8, Red Blood Count 4.08L, Hemoglobin 11.6L, Hematocrit 37.2L , Mean Corpuscular Volume 91, Mean Corpuscular Hemoglobin 28.5, Mean Corpuscular Hemoglobin Concent 31.2L, Red Cell Distribution Width 13.6, Platelet Count 201, Mean Platelet Volume 6.2L, Neutrophils (%) (Auto) 71.4, Lymphocytes (%) (Auto) 20.0, Monocytes (%) (Auto) 7.3, Eosinophils (%) (Auto) 0.6, Basophils (%) (Auto) 0.7, Sodium Level 140, Potassium Level 3.7, Chloride Level 105, Carbon Dioxide Level 22, Anion Gap 13, Blood Urea Nitrogen 10, Creatinine 0.7, Estimat Glomerular Filtration Rate > 60, Glucose Level 106, Calcium Level 8.6, Total Bilirubin 0.2, Aspartate Amino Transf (AST/SGOT) 20, Alanine Aminotransferase (ALT/SGPT) 22, Alkaline Phosphatase 200H, Troponin I 0.002, Total Protein 6.7, Albumin 3.4, Globulin 3.3, Albumin/Globulin Ratio 1.0 , Valproic Acid (Depakene) Level < 3L, Serum Alcohol < 3 09/28/19 18:05: Urine Color Yellow, Urine Appearance Clear, Urine pH 6.5, Urine Specific [place] 1.015, Urine Protein Negative, Urine Glucose (UA) Negative, Urine Ketones Negative, Urine Blood Negative, Urine Nitrite Negative, Urine Bilirubin Negative, Urine Urobilinogen 1H, Urine Leukocyte Esterase Negative, Urine Opiates Screen Negative, Urine Barbiturates Screen Negative, Phencyclidine (PCP ) Screen Negative, Urine Amphetamines Screen Negative, Urine Benzodiazepines Screen PositiveH, Urine Cocaine Screen Negative, Urine Marijuana (THC) Screen Negative 09/29/19 06:30: White Blood Count 4.8, Red Blood Count 4.11L, Hemoglobin 12.0L, Hematocrit 35.0L , Mean Corpuscular Volume 85, Mean Corpuscular Hemoglobin 29.2, Mean Corpuscular Hemoglobin Concent 34.4, Red Cell Distribution Width 12.3, Platelet Count 182, Mean Platelet Volume 4.6L, Neutrophils (%) (Auto) 68.4, Lymphocytes ( %) (Auto) 21.6, Monocytes (%) (Auto) 7.5, Eosinophils (%) (Auto) 1.9, Basophils (%) (Auto) 0.7, Sodium Level 137, Potassium Level 3.4L, Chloride Level 102, Carbon Dioxide Level 24, Anion Gap 11, Blood Urea Nitrogen 12, Creatinine 0.6, Estimat Glomerular Filtration Rate > 60, Glucose Level 85, Calcium Level 8.5, Troponin I 0.000, Pro-B-Type Natriuretic Peptide 160H, Carbamazepine (Tegretol) Level 4.7 Height (Feet): 5 Height (Inches): 4.00 Weight (Pounds): 197 Objective General Appearance: no apparent distress, lethargic Lines, tubes and drains: peripheral HEENT: normocephalic Neck: non-tender, normal alignment Respiratory/Chest: chest wall non-tender, lungs clear Abdomen: non tender Extremities: normal range of motion, non-tender Andrea Andersen M.D. September 29, 2019 12:32
[2019-09-29 16:00] VITALS: BP 123/65
--- NOTE | 2019-09-29 17:45 | NUR ---
NURSE NOTES: Covid swab turned in
--- NOTE | 2019-09-29 19:22 | NUR ---
HAND-OFF: Report given to GABRIELA Cooper. Patient's stable, plan of care endorsed.
--- NOTE | 2019-09-29 19:50 | NUR ---
NURSE NOTES: Received pt from GABRIELA Andrews. Pt asleep. Bed in lowest position. Call light within reach. Restraints on bilaterally. Will continue to monitor.
[2019-09-29 20:39] VITALS: BP 106/66
[2019-09-30 00:37] VITALS: BP 123/73
[2019-09-30 04:00] VITALS: BP 119/75
--- NOTE | 2019-09-30 07:29 | NUR ---
HAND-OFF: Report given to GABRIELA Andrews. Pt stable.
--- NOTE | 2019-09-30 07:45 | NUR ---
NURSE NOTES: Nurse report given by GABRIELA Cooper. Patient's awake, distress, agitated, confused, tried to climb out of bed again. Medications were given. Otherwise, AO x 0, no s/s of shortness of breath, breathing is regular but tachypnea. Bed low and locked, call light within reach, side rails x 3, bed alarm is armed, side rails padded for seizure precaution, suctions prepared. Patient's on soft wrist restraints, no s/s laceration, pulses present equally both side. IV is saline locked, flushed, patent and asymptomatic. Skin assessment performed, redness around sacral and bilateral feet but blanchable Will continue to monitor.
[2019-09-30 07:55] LABS: BASOPHILS % (AUTO) 0.6 % (0.0-2.0); HEMATOCRIT 36.3 % (42.0-52.0); HEMOGLOBIN 12.4 G/DL (14.2-18.0); LYMPHOCYTES % (AUTO) 19.2 % (20.0-45.0); MEAN CORPUSCULAR VOLUME 85 FL (80-99); MONOCYTES % (AUTO) 7.5 % (1.0-10.0); NEUTROPHILS % (AUTO) 70.7 % (45.0-75.0); PLATELET COUNT 181 K/UL (150-450); RED BLOOD COUNT 4.24 M/UL (4.70-6.10); RED CELL DISTRIBUTION WIDTH 12.1 % (11.6-14.8); WHITE BLOOD COUNT 5.9 K/UL (4.8-10.8)
[2019-09-30 08:00] VITALS: BP 121/85
[2019-09-30 08:12] LABS: ALANINE AMINOTRANSFERASE 22 U/L (12-78); ALBUMIN 3.3 G/DL (3.4-5.0); ALKALINE PHOSPHATASE 187 U/L (46-116); ANION GAP 10 mmol/L (5-15); ASPARTATE AMINO TRANSFERASE 19 U/L (15-37); BILIRUBIN,TOTAL 0.2 MG/DL (0.2-1.0); BLOOD UREA NITROGEN 12 mg/dL (7-18); CALCIUM 8.5 MG/DL (8.5-10.1); CARBON DIOXIDE 25 MMOL/L (21-32); CHLORIDE 106 MMOL/L (98-107); CREATININE 0.7 MG/DL (0.55-1.30); PHOSPHORUS 3.5 MG/DL (2.5-4.9); SODIUM 141 MMOL/L (136-145)
[2019-09-30] MEDS: Sertraline 100mg tab ORAL SCH (08:14)
[2019-09-30] MEDS: Montelukast 10mg tablet ORAL SCH (08:14)
[2019-09-30] MEDS: Topiramate 100mg tab ORAL SCH (08:14)
[2019-09-30] MEDS: Benazepril 10mg tab ORAL SCH (08:16)
[2019-09-30] MEDS: carBAMazepine 200mg tab ORAL SCH ×4 (08:16→20:46)
[2019-09-30] MEDS: Heparin 5000 units/ml inj SUBQ SCH ×2 (08:17→20:48)
[2019-09-30] MEDS: Tamsulosin 0.4mg cap ORAL SCH (08:17)
[2019-09-30] MEDS: Flonase Nasal Inhaler 16gm NASAL SCH (08:17)
[2019-09-30] MEDS: LORazepam Inj 2mg/ml 1ml IM PRN ×3 (09:45→23:43)
--- NOTE | 2019-09-30 10:08 | NUR ---
NURSE NOTES: Patient's still been agitated and staffs could not perform 2D echo. Spoke directly to Dr. Quintero. aware. No new orders.
--- NOTE | 2019-09-30 11:23 | NUR ---
CARDIOLOGY: ATTENDED TO PATIENT ROOM ON 09/29/19 PT IS AGITATED TRIED TO THE 2-D ECHO PT ALL OVER THE FLOOR. TRIED AGAIN ON 09/30/19 PT IS AGITATED AND AGGRESSIVE COULD NOT DO THE 2-D ECHO. GABRIELA OLIVARES AND CHARGE NURSE IS AWARE.
--- NOTE | 2019-09-30 11:32 | Nephrology Progress Note ---
Assessment/Plan Plan #Generalized weakness and lethargy #hypokalemia # autism #seizure disorder # history of congestive heart failure #HTN #HLD #BPH - replete K - resume antiepileptics - monitor electrolytes - continue benazopril - continue atorvastatin - continue flomax - continue montelukast - monitor bmp, mag and phos daily Subjective ROS Limited/Unobtainable: Yes Subjective K low repleted in restraints Objective Objective Last 24 Hour Vital Signs Date Time Temp Pulse Resp B/P (MAP) Pulse Ox O2 Delivery O2 Flow Rate FiO2 09/30/19 09:00 Room Air 09/30/19 08:16 134/76 09/30/19 08:00 97.6 97 22 121/85 (97) 95 09/30/19 08:00 81 09/30/19 04:00 82 09/30/19 04:00 97.2 90 22 119/75 (90) 94 09/30/19 00:37 98.1 75 20 123/73 (90) 97 09/30/19 00:00 83 09/29/19 21:00 Room Air 09/29/19 20:39 97.7 78 18 106/66 (79) 97 09/29/19 16:00 82 09/29/19 16:00 97.3 80 18 123/65 (84) 95 09/29/19 12:00 97.3 80 18 125/69 (87) 94 09/29/19 12:00 80 Intake and Output 09/29/19 09/30/19 19:00 07:00 Intake Total 360 ml Output Total 350 ml Balance 10 ml Intake Oral 360 ml Output Urine Total 350 ml # Voids 4 Laboratory Tests 09/30/19 07:15: Levetiracetam (Keppra) Level [Pending] 09/30/19 07:25: White Blood Count 5.9, Red Blood Count 4.24L, Hemoglobin 12.4L, Hematocrit 36.3L , Mean Corpuscular Volume 85, Mean Corpuscular Hemoglobin 29.2, Mean Corpuscular Hemoglobin Concent 34.2, Red Cell Distribution Width 12.1, Platelet Count 181, Mean Platelet Volume 4.7L, Neutrophils (%) (Auto) 70.7, Lymphocytes ( %) (Auto) 19.2L, Monocytes (%) (Auto) 7.5, Eosinophils (%) (Auto) 2.0, Basophils (%) (Auto) 0.6, Sodium Level 141, Potassium Level 4.0, Chloride Level 106, Carbon Dioxide Level 25, Anion Gap 10, Blood Urea Nitrogen 12, Creatinine 0.7, Estimat Glomerular Filtration Rate > 60, Glucose Level 92, Calcium Level 8.5, Phosphorus Level 3.5, Magnesium Level 2.1, Total Bilirubin 0.2, Aspartate Amino Transf (AST/SGOT) 19, Alanine Aminotransferase (ALT/SGPT) 22, Alkaline Phosphatase 187H, Total Protein 6.6, Albumin 3.3L, Globulin 3.3, Albumin/ Globulin Ratio 1.0 Height (Feet): 5 Height (Inches): 4.00 Weight (Pounds): 197 Objective General Appearance: no apparent distress, lethargic Lines, tubes and drains: peripheral HEENT: normocephalic Neck: non-tender, normal alignment Respiratory/Chest: chest wall non-tender, lungs clear Abdomen: non tender Extremities: normal range of motion, non-tender Andrea Andersen M.D. September 30, 2019 11:32
--- NOTE | 2019-09-30 11:40 | Internal Med Progress Note ---
Subjective Date of Service: September 30, 2019 Physician Name Zahra Quintero Attending Physician Angela Boudreaux MD Current Medications Medications (Trade) Dose Ordered Sig/Oracio Route PRN Reason Start Time Stop Time Status Last Admin Dose Admin Atorvastatin Calcium (Lipitor) 10 mg DAILY ORAL 09/29/19 09:00 12/28/19 08:59 09/30/19 08:16 Benazepril HCl (Lotensin) 5 mg DAILY ORAL 09/29/19 09:00 10/29/19 08:59 09/30/19 08:16 Carbamazepine (TEGretol) 300 mg FOUR TIMES A DAY ORAL 09/29/19 09:00 11/13/19 08:59 09/30/19 08:16 Ferrous Sulfate (Feosol) 325 mg DAILY ORAL 09/29/19 09:00 12/28/19 08:59 09/30/19 08:16 Fluticasone Propionate (Flonase) 1 spray DAILY NASAL 09/29/19 09:00 10/29/19 08:59 09/30/19 08:17 Haloperidol (Haldol) 5 mg Q6H PRN ORAL Agitation 09/29/19 08:00 11/13/19 07:59 09/30/19 08:15 Haloperidol Lactate (Haldol) 5 mg Q6H PRN IM Agitation 09/29/19 08:00 11/13/19 07:59 09/29/19 08:26 Heparin Sodium (Porcine) (Heparin 5000 units/ml) 5,000 units EVERY 12 HOURS SUBQ 09/29/19 09:00 11/13/19 08:59 09/30/19 08:17 Levetiracetam (Keppra) 1,000 mg TWICE A DAY ORAL 09/29/19 09:00 11/13/19 08:59 09/30/19 08:16 Lorazepam (Ativan 2mg/ml 1ml) 1 mg Q6H PRN IM For Anxiety 09/29/19 10:00 10/06/19 09:59 09/30/19 09:45 Lorazepam (Ativan 2mg/ml 1ml) 1 mg Q6H PRN IV For Seizures 09/29/19 00:15 10/06/19 00:14 Montelukast Sodium (Singulair) 10 mg DAILY ORAL 09/29/19 09:00 12/28/19 08:59 09/30/19 08:14 Ondansetron HCl (Zofran) 4 mg Q6H PRN ORAL Nausea & Vomiting 09/29/19 00:15 10/29/19 00:14 Quetiapine Fumarate (SEROqueL) 50 mg TID ORAL 09/29/19 09:45 11/13/19 09:44 09/30/19 08:15 Sertraline HCl (Zoloft) 100 mg DAILY ORAL 09/29/19 09:00 10/29/19 08:59 09/30/19 08:14 Tamsulosin HCl (Flomax) 0.4 mg DAILY ORAL 09/29/19 09:00 10/29/19 08:59 09/30/19 08:17 Topiramate (Topamax) 100 mg DAILY ORAL 09/29/19 09:00 11/13/19 08:59 09/30/19 08:14 Trazodone HCl (Desyrel) 150 mg BEDTIME PRN ORAL INSOMNIA 09/29/19 08:00 10/29/19 07:59 Allergies: Coded Allergies: PHENYTOIN (Verified Allergy, Unknown, 06/14/19) ROS Limited/Unobtainable: Yes Subjective Patient continues to have periods of severe agitation and is requiring restraints and medication. Awaiting Keppra Level. Awaiting COVID however he just had a negative COVID test two days ago. Vitals and labs stable. At this point, feel issue is primarily behavioral. Will f/u regarding d/c planning. Objective Last Vital Signs Date Time Temp Pulse Resp B/P (MAP) Pulse Ox O2 Delivery O2 Flow Rate FiO2 09/30/19 09:00 Room Air 09/30/19 08:16 134/76 09/30/19 08:00 97.6 97 22 95 Laboratory Tests Test 09/30/19 07:15 09/30/19 07:25 Levetiracetam (Keppra) Level Pending White Blood Count 5.9 K/UL (4.8-10.8) Red Blood Count 4.24 M/UL (4.70-6.10) L Hemoglobin 12.4 G/DL (14.2-18.0) L Hematocrit 36.3 % (42.0-52.0) L Mean Corpuscular Volume 85 FL (80-99) Mean Corpuscular Hemoglobin 29.2 PG (27.0-31.0) Mean Corpuscular Hemoglobin Concent 34.2 G/DL (32.0-36.0) Red Cell Distribution Width 12.1 % (11.6-14.8) Platelet Count 181 K/UL (150-450) Mean Platelet Volume 4.7 FL (6.5-10.1) L Neutrophils (%) (Auto) 70.7 % (45.0-75.0) Lymphocytes (%) (Auto) 19.2 % (20.0-45.0) L Monocytes (%) (Auto) 7.5 % (1.0-10.0) Eosinophils (%) (Auto) 2.0 % (0.0-3.0) Basophils (%) (Auto) 0.6 % (0.0-2.0) Sodium Level 141 MMOL/L (136-145) Potassium Level 4.0 MMOL/L (3.5-5.1) Chloride Level 106 MMOL/L (98-107) Carbon Dioxide Level 25 MMOL/L (21-32) Anion Gap 10 mmol/L (5-15) Blood Urea Nitrogen 12 mg/dL (7-18) Creatinine 0.7 MG/DL (0.55-1.30) Estimat Glomerular Filtration Rate > 60 mL/min (>60) Glucose Level 92 MG/DL (74-106) Calcium Level 8.5 MG/DL (8.5-10.1) Phosphorus Level 3.5 MG/DL (2.5-4.9) Magnesium Level 2.1 MG/DL (1.8-2.4) Total Bilirubin 0.2 MG/DL (0.2-1.0) Aspartate Amino Transf (AST/SGOT) 19 U/L (15-37) Alanine Aminotransferase (ALT/SGPT) 22 U/L (12-78) Alkaline Phosphatase 187 U/L (46-116) H Total Protein 6.6 G/DL (6.4-8.2) Albumin 3.3 G/DL (3.4-5.0) L Globulin 3.3 g/dL Albumin/Globulin Ratio 1.0 (1.0-2.7) Microbiology Date/Time Source Procedure Growth Status 09/28/19 21:59 Rectum Received Intake and Output 09/29/19 09/30/19 19:00 07:00 Intake Total 360 ml Output Total 350 ml Balance 10 ml Intake Oral 360 ml Output Urine Total 350 ml # Voids 4 Objective Sleeping, in restraints CTA BL, clear lung sounds RRR, S1S2 noted Abdomen non tender non distended No edema Muscle Wasting CN Intact Assessment/Plan Assessment/Plan Assessment #Weakness/Lethargy--> Labs WNL, pending AED levels to ensure no toxicity #Seizure Dx #Autism w/ severe intermittent behavioral outbursts #BPH #COVID pending, low suspicion Plan Consult to patients Housing Assistant Property Manager; echo and ekg pending Pending AED levels , Resume Keppra,Topamax, Tegretol, Risperidone,Seroquel, Zoloft Resume atorvastatin and benazepril , tamsulosin Haldol prn DVT ppx Diet 09/29: Awaiting Keppra level; COVID was sent however patient tested negative just two days ago. Consider d/c planning; unable to get echo today given agitation Zahra Quintero D.O. September 30, 2019 11:40
[2019-09-30 12:00] VITALS: BP 102/59
--- NOTE | 2019-09-30 14:11 | Consultation ---
History of Present Illness General Date patient seen: September 30, 2019 Reason for Hospitalization: General Complaint Present Illness HPI This is a 49-year-old male with multiple medical comorbidities including history of seizure disorder as well as autism who was brought in by caregiver due to 1 day of weakness. Patient caregiver reported in triage that patient has been having a hard time to walk. Denies chest pain shortness of breath. Patient appears to be agitated. Vitals are within normal limits. Not a good historian. No cough or congestion reported. Patient was not seizure disorder. Has not taken medication for symptom relief. Admitted for care and management. abnormal labs. ill appearing. noted to have sacral skin lesion. surgery called toe valuate and assist with care. patient seen, chart reviewed, patient examined. Allergies: Coded Allergies: PHENYTOIN (Verified Allergy, Unknown, 06/14/19) COVID-19 Screening Contact w/high risk pt: No Recent Travel to affected area: No Experienced COVID-19 symptoms?: No COVID-19 symptoms experienced: Shortness of Breath Medication History Scheduled Albuterol Sulfate* (Albuterol Repetabs*), 4 MG ORAL TWICE A DAY, (Reported) Benazepril Hcl (Benazepril Hcl), 5 MG ORAL DAILY, (Reported) Benazepril Hcl* (Benazepril Hcl*), 5 MG ORAL DAILY, (Reported) Carbamazepine* (Carbamazepine*), 300 MG ORAL FOUR TIMES A DAY Clonazepam (Klonopin), 2 MG PO QHS, (Reported) Ferrous Sulfate (Iron), 325 MG PO DAILY, (Reported) Ferrous Sulfate* (Ferrous Sulfate*), 325 MG ORAL DAILY, (Reported) Fluticasone Propionate* (Fluticasone Propionate*), 1 SPRAY NASAL DAILY, ( Reported) Furosemide* (Lasix*), 40 MG ORAL DAILY, (Reported) Haloperidol* (Haldol*), 0.5 MG ORAL TID, (Reported) Haloperidol* (Haldol*), 5 MG ORAL EVERY 6 HOURS, (Reported) Levetiracetam* (Levetiracetam*), 1,000 MG ORAL TWICE A DAY, (Reported) Melatonin (Melatonin), 3 MG ORAL QHS, (Reported) Montelukast Sodium* (Montelukast Sodium*), 10 MG ORAL DAILY, (Reported) Omeprazole (Omeprazole), 40 MG ORAL DAILY, (Reported) Risperidone* (Risperdal*), 2 MG ORAL DAILY, (Reported) Sertraline Hcl* (Zoloft*), 100 MG ORAL DAILY, (Reported) Simvastatin (Zocor), 20 MG ORAL BEDTIME, (Reported) Tamsulosin HCl (Flomax), 0.4 MG ORAL DAILY, (Reported) Topiramate (Topiramate), 200 MG PO TID, (Reported) Topiramate* (Topamax*), 100 MG ORAL DAILY, (Reported) Trazodone* (Trazodone*), 150 MG ORAL BEDTIME, (Reported) Zolpidem Tartrate* (Ambien*), 10 MG ORAL BEDTIME, (Reported) Scheduled PRN Ondansetron* (Zofran*), 4 MG ORAL Q6H PRN for Nausea & Vomiting, (Reported) Miscellaneous Medications Lacosamide (Vimpat), 200 MG PO, (Reported) Patient History Limited by: medical condition History Provided By: Medical Record, PMD Healthcare decision maker Resuscitation status Advanced Directive on File Past Medical/Surgical History Past Medical/Surgical History: (1) Lower GI bleed (2) Colitis (3) Postictal state (4) Developmental delay, moderate (5) Epileptic seizure, generalized (6) Developmental delay, severe (7) Generalized weakness (8) Seizure disorder (9) Agitation Review of Systems Review of Symptoms General ROS: no weight loss or fever Psychological ROS: no depression or mood changes, no memory loss Ophthalmic ROS: no visual changes or eye irritation ENT ROS: no nasal congestion, hearing loss, dizziness Allergy and Immunology ROS: no allergic symptoms or urticaria Hematological and Lymphatic ROS: no swollen glands, unusual bleeding or bruising Endocrine ROS: no polyuria, polydipsia, weight changes, temperature intolerance Respiratory ROS: no cough, shortness of breath, or wheezing Cardiovascular ROS: no chest pain or dyspnea on exertion Gastrointestinal ROS: denies abdominal pain, bright red blood in stool. Musculoskeletal ROS: no myalgias or arthralgias Neurological ROS: no TIA or stroke symptoms Dermatological ROS: no new or changing skin lesions, rashes or pruritis Physical Exam Physical Exam General appearance: alert, cooperative, no distress, appears stated age Head: Normocephalic, without obvious abnormality, atraumatic Eyes: conjunctivae/corneas clear. PERRL, EOM's intact. Fundi benign Throat: Lips, mucosa, and tongue normal. Teeth and gums normal Neck: supple, symmetrical, trachea midline, no adenopathy, thyroid: not enlarged, symmetric, no tenderness/mass/nodules, no carotid bruit and no JVD Lungs: clear to auscultation bilaterally Heart: regular rate and rhythm, S1, S2 normal, no murmur, click, rub or gallop Abdomen: soft, non-tender. Bowel sounds normal. No masses, no organomegaly Extremities: extremities normal, atraumatic, no cyanosis or edema Pulses: 2+ and symmetric Skin: Skinsee below Neurologic: Grossly normal Last 24 Hour Vital Signs Date Time Temp Pulse Resp B/P (MAP) Pulse Ox O2 Delivery O2 Flow Rate FiO2 09/30/19 12:00 98.1 73 22 102/59 (73) 96 09/30/19 09:00 Room Air 09/30/19 08:16 134/76 09/30/19 08:00 97.6 97 22 121/85 (97) 95 09/30/19 08:00 81 09/30/19 04:00 82 09/30/19 04:00 97.2 90 22 119/75 (90) 94 09/30/19 00:37 98.1 75 20 123/73 (90) 97 09/30/19 00:00 83 09/29/19 21:00 Room Air 09/29/19 20:39 97.7 78 18 106/66 (79) 97 09/29/19 16:00 82 09/29/19 16:00 97.3 80 18 123/65 (84) 95 Intake and Output 09/29/19 09/30/19 19:00 07:00 Intake Total 360 ml Output Total 350 ml Balance 10 ml Intake Oral 360 ml Output Urine Total 350 ml # Voids 4 Laboratory Tests Test 09/30/19 07:15 09/30/19 07:25 Levetiracetam (Keppra) Level Pending White Blood Count 5.9 K/UL (4.8-10.8) Red Blood Count 4.24 M/UL (4.70-6.10) L Hemoglobin 12.4 G/DL (14.2-18.0) L Hematocrit 36.3 % (42.0-52.0) L Mean Corpuscular Volume 85 FL (80-99) Mean Corpuscular Hemoglobin 29.2 PG (27.0-31.0) Mean Corpuscular Hemoglobin Concent 34.2 G/DL (32.0-36.0) Red Cell Distribution Width 12.1 % (11.6-14.8) Platelet Count 181 K/UL (150-450) Mean Platelet Volume 4.7 FL (6.5-10.1) L Neutrophils (%) (Auto) 70.7 % (45.0-75.0) Lymphocytes (%) (Auto) 19.2 % (20.0-45.0) L Monocytes (%) (Auto) 7.5 % (1.0-10.0) Eosinophils (%) (Auto) 2.0 % (0.0-3.0) Basophils (%) (Auto) 0.6 % (0.0-2.0) Sodium Level 141 MMOL/L (136-145) Potassium Level 4.0 MMOL/L (3.5-5.1) Chloride Level 106 MMOL/L (98-107) Carbon Dioxide Level 25 MMOL/L (21-32) Anion Gap 10 mmol/L (5-15) Blood Urea Nitrogen 12 mg/dL (7-18) Creatinine 0.7 MG/DL (0.55-1.30) Estimat Glomerular Filtration Rate > 60 mL/min (>60) Glucose Level 92 MG/DL (74-106) Calcium Level 8.5 MG/DL (8.5-10.1) Phosphorus Level 3.5 MG/DL (2.5-4.9) Magnesium Level 2.1 MG/DL (1.8-2.4) Total Bilirubin 0.2 MG/DL (0.2-1.0) Aspartate Amino Transf (AST/SGOT) 19 U/L (15-37) Alanine Aminotransferase (ALT/SGPT) 22 U/L (12-78) Alkaline Phosphatase 187 U/L (46-116) H Total Protein 6.6 G/DL (6.4-8.2) Albumin 3.3 G/DL (3.4-5.0) L Globulin 3.3 g/dL Albumin/Globulin Ratio 1.0 (1.0-2.7) Height (Feet): 5 Height (Inches): 4.00 Weight (Pounds): 197 Medications Current Medications Medications (Trade) Dose Ordered Sig/Oracio Route PRN Reason Start Time Stop Time Status Last Admin Dose Admin Atorvastatin Calcium (Lipitor) 10 mg DAILY ORAL 09/29/19 09:00 12/28/19 08:59 09/30/19 08:16 Benazepril HCl (Lotensin) 5 mg DAILY ORAL 09/29/19 09:00 10/29/19 08:59 09/30/19 08:16 Carbamazepine (TEGretol) 300 mg FOUR TIMES A DAY ORAL 09/29/19 09:00 11/13/19 08:59 09/30/19 13:23 Ferrous Sulfate (Feosol) 325 mg DAILY ORAL 09/29/19 09:00 12/28/19 08:59 09/30/19 08:16 Fluticasone Propionate (Flonase) 1 spray DAILY NASAL 09/29/19 09:00 10/29/19 08:59 09/30/19 08:17 Haloperidol (Haldol) 5 mg Q6H PRN ORAL Agitation 09/29/19 08:00 11/13/19 07:59 09/30/19 08:15 Haloperidol Lactate (Haldol) 5 mg Q6H PRN IM Agitation 09/29/19 08:00 11/13/19 07:59 09/29/19 08:26 Heparin Sodium (Porcine) (Heparin 5000 units/ml) 5,000 units EVERY 12 HOURS SUBQ 09/29/19 09:00 11/13/19 08:59 09/30/19 08:17 Levetiracetam (Keppra) 1,000 mg TWICE A DAY ORAL 09/29/19 09:00 11/13/19 08:59 09/30/19 08:16 Lorazepam (Ativan 2mg/ml 1ml) 1 mg Q6H PRN IM For Anxiety 09/29/19 10:00 10/06/19 09:59 09/30/19 09:45 Lorazepam (Ativan 2mg/ml 1ml) 1 mg Q6H PRN IV For Seizures 09/29/19 00:15 10/06/19 00:14 Montelukast Sodium (Singulair) 10 mg DAILY ORAL 09/29/19 09:00 12/28/19 08:59 09/30/19 08:14 Ondansetron HCl (Zofran) 4 mg Q6H PRN ORAL Nausea & Vomiting 09/29/19 00:15 10/29/19 00:14 Quetiapine Fumarate (SEROqueL) 50 mg TID ORAL 09/29/19 09:45 11/13/19 09:44 09/30/19 13:23 Sertraline HCl (Zoloft) 100 mg DAILY ORAL 09/29/19 09:00 10/29/19 08:59 09/30/19 08:14 Tamsulosin HCl (Flomax) 0.4 mg DAILY ORAL 09/29/19 09:00 10/29/19 08:59 09/30/19 08:17 Topiramate (Topamax) 100 mg DAILY ORAL 09/29/19 09:00 11/13/19 08:59 09/30/19 08:14 Trazodone HCl (Desyrel) 150 mg BEDTIME PRN ORAL INSOMNIA 09/29/19 08:00 10/29/19 07:59 Assessment/Plan Problem List: (1) Generalized weakness Assessment & Plan: Lungs: Unremarkable. No consolidation. Pleural space: Unremarkable. No pneumothorax. Heart/mediastinum: Mechanical device projecting over the left heart margin. Bones/joints: Unremarkable. IMPRESSION: No evidence of acute pulmonary disease ICD Codes: R53.1 - Weakness SNOMED: 47225931 (2) Colitis ICD Codes: K52.9 - Noninfective gastroenteritis and colitis, unspecified SNOMED: 80788479 (3) Seizure disorder ICD Codes: G40.909 - Epilepsy, unspecified, not intractable, without status epilepticus SNOMED: 870263952 (4) Agitation ICD Codes: R45.1 - Restlessness and agitation SNOMED: 55075490 (5) Epileptic seizure, generalized ICD Codes: G40.309 - Generalized idiopathic epilepsy and epileptic syndromes, not intractable, without status epilepticus SNOMED: 45160367 (6) Lower GI bleed ICD Codes: K92.2 - Gastrointestinal hemorrhage, unspecified SNOMED: 71126360 (7) Postictal state ICD Codes: R56.9 - Unspecified convulsions SNOMED: 82302176 (8) Developmental delay, severe Assessment & Plan: Brain: No intracranial hemorrhage or mass effect. No clear acute large vessel territory infarct. Ventricles: Unremarkable. No ventriculomegaly. Bones/joints: Unremarkable. No acute fracture. Soft tissues: Multifocal scalp thickening/swelling. Sinuses: Unremarkable as visualized. No acute sinusitis. Mastoid air cells: Unremarkable as visualized. No mastoid effusion. ICD Codes: R62.50 - Unspecified lack of expected normal physiological development in childhood SNOMED: 575863712 (9) Developmental delay, moderate ICD Codes: R62.50 - Unspecified lack of expected normal physiological development in childhood SNOMED: 504201546 (10) Incontinence associated dermatitis Assessment & Plan: Monitor closely changes needed ICD Codes: L30.8 - Other specified dermatitis; R32 - Unspecified urinary incontinence SNOMED: 531474980 (11) Sacral decubitus ulcer Assessment & Plan: Patient identified admission to have sacral erythema and some abnormal skin lesion. In evaluation fortunately no deep tissue injury currently identifiable. No open wound. Does seem like incontinence associated dermatitis as well as slow forming decubitus skin ulcer. Patient with developmental delay but able to be somewhat responsive. Was unsure of all protective measures in place during admission given patient's high risk nature potentially developing worsening decubitus ulcers and difficult to care plan given overall condition. Nutritional optimization we will follow the recommendations turn every 2 hours OPTi foam dressing to sacral region heel protectors will follow with ICD Codes: L89.159 - Pressure ulcer of sacral region, unspecified stage SNOMED: 443655758 Frank Hunter September 30, 2019 14:11
[2019-09-30 16:00] VITALS: BP 107/53
--- NOTE | 2019-09-30 19:27 | NUR ---
HAND-OFF: Report given to GABRIELA Chavis. Patient's stable, plan of care endorsed.
--- NOTE | 2019-09-30 19:32 | NUR ---
NURSE NOTES: Nurse report given by Juliana Iraheta RN. Patient's asleep at this time, breathing even and unlabored. AO x 0-1, no s/s of shortness of breath. Bed low and locked, call light within reach, side rails x 3, bed alarm is armed at zone 3, side rails padded for seizure precautions, suction at bedside. Patient's on soft wrist restraints initiated 09/28 at 00:00, no s/s laceration, skin integrity intact on wrists, pulses present equally bilaterally. IV is saline locked, flushed, patent and asymptomatic. Skin assessment performed, redness around sacral and bilateral feet but blanchable, applied optifoam and will follow wound care protocol, turning q 2, lola cath applied and draining, securement device applied. Repositioned. Will continue to monitor.
[2019-09-30 20:00] VITALS: BP 108/67
[2019-10-01] VITALS: BP 103/63
[2019-10-01 04:00] VITALS: BP 125/78
[2019-10-01] MEDS: LORazepam Inj 2mg/ml 1ml IM PRN ×2 (07:00→13:21)
[2019-10-01 07:35] LABS: BASOPHILS % (AUTO) 0.4 % (0.0-2.0); EOSINOPHILS % (AUTO) 2.8 % (0.0-3.0); HEMATOCRIT 36.5 % (42.0-52.0); HEMOGLOBIN 12.5 G/DL (14.2-18.0); LYMPHOCYTES % (AUTO) 26.1 % (20.0-45.0); MEAN CORPUSCULAR VOLUME 85 FL (80-99); MONOCYTES % (AUTO) 7.6 % (1.0-10.0); NEUTROPHILS % (AUTO) 63.1 % (45.0-75.0); PLATELET COUNT 180 K/UL (150-450); RED BLOOD COUNT 4.32 M/UL (4.70-6.10); WHITE BLOOD COUNT 5.6 K/UL (4.8-10.8)
[2019-10-01 08:08] LABS: ALANINE AMINOTRANSFERASE 21 U/L (12-78); ALBUMIN 3.3 G/DL (3.4-5.0); ALKALINE PHOSPHATASE 189 U/L (46-116); ANION GAP 11 mmol/L (5-15); ASPARTATE AMINO TRANSFERASE 25 U/L (15-37); BILIRUBIN,TOTAL 0.2 MG/DL (0.2-1.0); BLOOD UREA NITROGEN 17 mg/dL (7-18); CALCIUM 8.6 MG/DL (8.5-10.1); CARBON DIOXIDE 25 MMOL/L (21-32); CHLORIDE 104 MMOL/L (98-107); CREATININE 0.6 MG/DL (0.55-1.30); PHOSPHORUS 4.2 MG/DL (2.5-4.9); POTASSIUM 4.1 MMOL/L (3.5-5.1); SODIUM 140 MMOL/L (136-145)
--- NOTE | 2019-10-01 08:11 | NUR ---
HAND-OFF: Report given to Lonnie Sainz RN I fed patient and situated him. He continues to throw legs over the side rails, gave 1 mg ativan. Endorsed to day shift high fall risk and that bed alarm needs to remain of zone 2..
[2019-10-01 08:53] VITALS: BP 125/71
[2019-10-01] MEDS: Montelukast 10mg tablet ORAL SCH (09:00)
[2019-10-01] MEDS: Sertraline 100mg tab ORAL SCH (09:00)
[2019-10-01] MEDS: Flonase Nasal Inhaler 16gm NASAL SCH (09:00)
[2019-10-01] MEDS: carBAMazepine 200mg tab ORAL SCH ×3 (09:00→17:51)
[2019-10-01] MEDS: Tamsulosin 0.4mg cap ORAL SCH (09:00)
[2019-10-01] MEDS: Heparin 5000 units/ml inj SUBQ SCH (09:00)
[2019-10-01] MEDS: Topiramate 100mg tab ORAL SCH (09:00)
[2019-10-01] MEDS: Benazepril 10mg tab ORAL SCH (09:00)
--- NOTE | 2019-10-01 09:37 | Nephrology Progress Note ---
Assessment/Plan Plan #Generalized weakness and lethargy #hypokalemia # autism #seizure disorder # history of congestive heart failure #HTN #HLD #BPH - replete K - resume antiepileptics - monitor electrolytes - continue benazopril - continue atorvastatin - continue flomax - continue montelukast - monitor bmp, mag and phos daily Subjective ROS Limited/Unobtainable: Yes Subjective K low repleted in restraints Objective Objective Last 24 Hour Vital Signs Date Time Temp Pulse Resp B/P (MAP) Pulse Ox O2 Delivery O2 Flow Rate FiO2 10/01/19 08:54 91 10/01/19 08:53 98.1 89 20 125/71 (89) 95 10/01/19 08:23 Room Air 10/01/19 04:00 98.3 71 19 125/78 (94) 97 10/01/19 04:00 67 10/01/19 00:00 85 10/01/19 00:00 98.1 73 16 103/63 (76) 96 09/30/19 21:00 Room Air 09/30/19 20:00 77 09/30/19 20:00 97.7 76 17 108/67 (81) 97 09/30/19 16:00 98.3 64 18 107/53 (71) 94 09/30/19 16:00 69 09/30/19 12:00 80 09/30/19 12:00 98.1 73 22 102/59 (73) 96 Intake and Output 09/30/19 10/01/19 19:00 07:00 Intake Total 810 ml 480 ml Output Total 1200 ml 500 ml Balance -390 ml -20 ml Intake Oral 810 ml 480 ml Output Urine Total 1200 ml 500 ml # Voids 1 1 Laboratory Tests 10/01/19 05:39: White Blood Count 5.6, Red Blood Count 4.32L, Hemoglobin 12.5L, Hematocrit 36.5L , Mean Corpuscular Volume 85, Mean Corpuscular Hemoglobin 29.0, Mean Corpuscular Hemoglobin Concent 34.3, Red Cell Distribution Width 12.0, Platelet Count 180, Mean Platelet Volume 4.4L, Neutrophils (%) (Auto) 63.1, Lymphocytes ( %) (Auto) 26.1, Monocytes (%) (Auto) 7.6, Eosinophils (%) (Auto) 2.8, Basophils (%) (Auto) 0.4, Sodium Level 140, Potassium Level 4.1, Chloride Level 104, Carbon Dioxide Level 25, Anion Gap 11, Blood Urea Nitrogen 17, Creatinine 0.6, Estimat Glomerular Filtration Rate > 60, Glucose Level 85, Calcium Level 8.6, Phosphorus Level 4.2, Magnesium Level 2.1, Total Bilirubin 0.2, Aspartate Amino Transf (AST/SGOT) 25, Alanine Aminotransferase (ALT/SGPT) 21, Alkaline Phosphatase 189H, Total Protein 6.6, Albumin 3.3L, Globulin 3.3, Albumin/ Globulin Ratio 1.0 Height (Feet): 5 Height (Inches): 4.00 Weight (Pounds): 197 Objective General Appearance: no apparent distress, lethargic Lines, tubes and drains: peripheral HEENT: normocephalic Neck: non-tender, normal alignment Respiratory/Chest: chest wall non-tender, lungs clear Abdomen: non tender Extremities: normal range of motion, non-tender Andrea Andersen M.D. October 01, 2019 09:37
[2019-10-01] MEDS: Haloperidol 5mg/ml Inj IM PRN (10:17)
--- NOTE | 2019-10-01 11:04 | Surgery Progress Note ---
Surgery Progress Note Subjective Symptoms: improved, tolerating diet, passing flatus Additional Comments No acute events. Patient is very noncooperative keeps try to get out of bed. No nausea vomiting fever chills. Labs improved. DC planning Objective Last 24 Hour Vital Signs Date Time Temp Pulse Resp B/P (MAP) Pulse Ox O2 Delivery O2 Flow Rate FiO2 10/01/19 09:00 125/71 10/01/19 08:54 91 10/01/19 08:53 98.1 89 20 125/71 (89) 95 10/01/19 08:23 Room Air 10/01/19 04:00 98.3 71 19 125/78 (94) 97 10/01/19 04:00 67 10/01/19 00:00 85 10/01/19 00:00 98.1 73 16 103/63 (76) 96 09/30/19 21:00 Room Air 09/30/19 20:00 77 09/30/19 20:00 97.7 76 17 108/67 (81) 97 09/30/19 16:00 98.3 64 18 107/53 (71) 94 09/30/19 16:00 69 09/30/19 12:00 80 09/30/19 12:00 98.1 73 22 102/59 (73) 96 I&O Intake and Output 09/30/19 10/01/19 19:00 07:00 Intake Total 810 ml 480 ml Output Total 1200 ml 500 ml Balance -390 ml -20 ml Intake Oral 810 ml 480 ml Output Urine Total 1200 ml 500 ml # Voids 1 1 Dressing: dry Wound: clean Cardiovascular: RSR Respiratory: clear Abdomen: soft, non-tender, present bowel sounds Extremities: no edema, no tenderness, no cyanosis Laboratory Tests Test 10/01/19 05:39 White Blood Count 5.6 K/UL (4.8-10.8) Red Blood Count 4.32 M/UL (4.70-6.10) L Hemoglobin 12.5 G/DL (14.2-18.0) L Hematocrit 36.5 % (42.0-52.0) L Mean Corpuscular Volume 85 FL (80-99) Mean Corpuscular Hemoglobin 29.0 PG (27.0-31.0) Mean Corpuscular Hemoglobin Concent 34.3 G/DL (32.0-36.0) Red Cell Distribution Width 12.0 % (11.6-14.8) Platelet Count 180 K/UL (150-450) Mean Platelet Volume 4.4 FL (6.5-10.1) L Neutrophils (%) (Auto) 63.1 % (45.0-75.0) Lymphocytes (%) (Auto) 26.1 % (20.0-45.0) Monocytes (%) (Auto) 7.6 % (1.0-10.0) Eosinophils (%) (Auto) 2.8 % (0.0-3.0) Basophils (%) (Auto) 0.4 % (0.0-2.0) Sodium Level 140 MMOL/L (136-145) Potassium Level 4.1 MMOL/L (3.5-5.1) Chloride Level 104 MMOL/L (98-107) Carbon Dioxide Level 25 MMOL/L (21-32) Anion Gap 11 mmol/L (5-15) Blood Urea Nitrogen 17 mg/dL (7-18) Creatinine 0.6 MG/DL (0.55-1.30) Estimat Glomerular Filtration Rate > 60 mL/min (>60) Glucose Level 85 MG/DL (74-106) Calcium Level 8.6 MG/DL (8.5-10.1) Phosphorus Level 4.2 MG/DL (2.5-4.9) Magnesium Level 2.1 MG/DL (1.8-2.4) Total Bilirubin 0.2 MG/DL (0.2-1.0) Aspartate Amino Transf (AST/SGOT) 25 U/L (15-37) Alanine Aminotransferase (ALT/SGPT) 21 U/L (12-78) Alkaline Phosphatase 189 U/L (46-116) H Total Protein 6.6 G/DL (6.4-8.2) Albumin 3.3 G/DL (3.4-5.0) L Globulin 3.3 g/dL Albumin/Globulin Ratio 1.0 (1.0-2.7) Plan Problems: (1) Generalized weakness Assessment & Plan: Lungs: Unremarkable. No consolidation. Pleural space: Unremarkable. No pneumothorax. Heart/mediastinum: Mechanical device projecting over the left heart margin. Bones/joints: Unremarkable. IMPRESSION: No evidence of acute pulmonary disease (2) Colitis (3) Seizure disorder (4) Agitation (5) Epileptic seizure, generalized (6) Lower GI bleed (7) Postictal state (8) Developmental delay, severe Assessment & Plan: Brain: No intracranial hemorrhage or mass effect. No clear acute large vessel territory infarct. Ventricles: Unremarkable. No ventriculomegaly. Bones/joints: Unremarkable. No acute fracture. Soft tissues: Multifocal scalp thickening/swelling. Sinuses: Unremarkable as visualized. No acute sinusitis. Mastoid air cells: Unremarkable as visualized. No mastoid effusion. (9) Developmental delay, moderate (10) Incontinence associated dermatitis Assessment & Plan: Monitor closely changes needed (11) Sacral decubitus ulcer Assessment & Plan: Patient identified admission to have sacral erythema and some abnormal skin lesion. In evaluation fortunately no deep tissue injury currently identifiable. No open wound. Does seem like incontinence associated dermatitis as well as slow forming decubitus skin ulcer. Patient with developmental delay but able to be somewhat responsive. Was unsure of all protective measures in place during admission given patient's high risk nature potentially developing worsening decubitus ulcers and difficult to care plan given overall condition. Nutritional optimization we will follow the recommendations turn every 2 hours OPTi foam dressing to sacral region heel protectors will follow with Frank Hunter October 01, 2019 11:04
[2019-10-01 12:00] VITALS: BP 130/75
[2019-10-01] MEDS ORDERED: FLOMAX0.4 MG ORAL (13:39)
[2019-10-01] MEDS ORDERED: LIPITOR10 MG ORAL (13:39)
[2019-10-01] MEDS ORDERED: CARBAMAZEPINE200 MG ORAL (13:39)
[2019-10-01] MEDS ORDERED: SERTRALINE HCL100 MG ORAL (13:39)
[2019-10-01] MEDS ORDERED: DESYREL50 MG ORAL (13:39)
[2019-10-01] MEDS ORDERED: BENAZEPRIL HCL10 MG ORAL (13:39)
[2019-10-01] MEDS ORDERED: TOPAMAX100 MG ORAL (13:39)
[2019-10-01] MEDS ORDERED: SEROQUEL25 MG ORAL (13:39)
[2019-10-01] MEDS ORDERED: HALDOL5 MG ORAL (13:39)
[2019-10-01] MEDS ORDERED: FLONASE1 SPRAYS NASAL (13:39)
[2019-10-01] MEDS ORDERED: FEOSOL325 MG ORAL (13:39)
[2019-10-01] MEDS ORDERED: ZOFRAN4 M1 ORAL (13:39)
[2019-10-01] MEDS ORDERED: MONTELUKAST SOD10 MG ORAL (13:39)
[2019-10-01] MEDS ORDERED: KEPPRA500 MG ORAL (13:39)
--- NOTE | 2019-10-01 13:45 | Discharge Summary ---
Discharge Summary Hospital Course Date of Admission September 28, 2019 at 19:00 Date of Discharge Admitting Diagnosis sz and weakness HPI Mello Bustamante is a 49 year old male who was admitted on September 28, 2019 at 19 :00 for Seizure And Weakness Hospital Course Assessment #Weakness/Lethargy--> Labs WNL, pending AED levels to ensure no toxicity #Seizure Dx #Autism #BPH Plan Consult to patients [employer]; echo and ekg pending Pending AED levels , Resume Keppra,Topamax, Tegretol, Risperidone,Seroquel, Zoloft Resume atorvastatin and benazepril , tamsulosin Haldol prn DVT ppx Diet 49-year-old male with history of seizure disorder as well as autism brought in by caregiver due to 1 day of weakness. Patient caregiver reported in triage that patient has been having a hard time to walk today. Denies chest pain shortness of breath. Patient appears to be agitated. Vitals are within normal limits. Not a good historian. No cough or congestion reported. Patient was not seizure disorder. Has not taken medication for symptom relief. 09/30: patient has been seizure free and vitals stable; feel this is mostly a behavioral issue. He had a negative COVID test two days ago at outside facility it was reported. During hospital stay he continues to have periods of severe agitation requiring restraints but do not see reason for ongoing hospitalization. Discharge Discharge Vital Signs Last Vital Signs Date Time Temp Pulse Resp B/P (MAP) Pulse Ox O2 Delivery O2 Flow Rate FiO2 10/01/19 09:00 125/71 10/01/19 08:54 91 10/01/19 08:53 98.1 20 95 10/01/19 08:23 Room Air Discharge Disposition Patient was discharged to Zahra Quintero D.O. October 01, 2019 13:45
[2019-10-01 16:00] VITALS: BP 122/68
== END 2019-10-01 18:55 | disposition home or self-care (01) | DRG 101 ==
LOC: EMR 17:30 → 2E 19:00 → EDBEDREQ 21:44 → 2E 23:33
DX: G40.909 Epilepsy, unspecified, not intractable, without status epilepticus (principal); F84.0 Autistic disorder; K92.2 Gastrointestinal hemorrhage, unspecified; K52.9 Noninfective gastroenteritis and colitis, unspecified; I11.0 Hypertensive heart disease with heart failure; N40.0 Benign prostatic hyperplasia without lower urinary tract symptoms; Z88.8 Allergy status to other drugs, medicaments and biological substances; R62.7 Adult failure to thrive; E78.5 Hyperlipidemia, unspecified; J45.909 Unspecified asthma, uncomplicated; F41.9 Anxiety disorder, unspecified; F32.9 Major depressive disorder, single episode, unspecified; G47.00 Insomnia, unspecified; R53.1 Weakness; L30.8 Other specified dermatitis; R32 Unspecified urinary incontinence; L89.159 Pressure ulcer of sacral region, unspecified stage; E87.6 Hypokalemia
CPT/HCPCS: 36415; 70450; 71045; 80048; 80053; 80156; 80164; 80299; 80307; 81003; 83735; 83880; 84100; 84484; 85025; 87081; 87635; 93005; 96372; 96374; 99285; G0480; J8499